=== PATIENT | male | born 1955 | race Caucasian/White ===

== ENCOUNTER 2018-07-07 23:50 | Emergency (ER) | payer SELFPAY ==
[~2018-07-07] VITALS: Ht 180.3 cm; Wt 133.8 kg
[~2018-07-07 23:50] MED LIST: ACLI400A2 IH; ALB0.5V IH; ALBU2.5V4 IH; ALBU2.5V4 INH; AMLO10TA7 PO; AMLO5TAB2 PO; AMOXICILLIN; ASPI-983 PO; ASPI325T32 PO; CEPH500C PO; FLUT1DIS2 IH; FLUT1DIS26 IH; GUAI600T PO; IPR14IN IH; LEVO500T69 PO; LORA10TA7 PO; METO100T12 PO; MMT17NA NSEACH; MONT10TA24 PO; NAPR-689 PO; OMEP20CA12 PO; OMEP20TA33 PO; ONDAN4ODT PO; RT-ALBUINH IH; SILD100T PO; TBR.3OP51 OP; TRAM50TA2 PO
[2018-07-08] MEDS ORDERED: methylPREDNISolone 125 MG (Solu-MEDROL) VIAL ONE (00:09)
[2018-07-08] MEDS ORDERED: methylPREDNISolone 125 MG (Solu-MEDROL) VIAL IV STA (00:10)
[2018-07-08] MEDS ORDERED: RT-ALBUTEROL/IPRATROPIUM 3 ML (DUONEB) VIAL INH ONE (00:15)
[2018-07-08] MEDS ORDERED: RT-epiNEPHrine (RACEMIC) 2.25% 0.5 ML VIAL INH ONE (00:15)
[2018-07-08] MEDS ORDERED: DEXAMETHASONE 4 MG/ML SDV (DECADRON) IH ONE (00:15)
[2018-07-08] MEDS ORDERED: RT-SODIUM CHL INHALATION 3 ML VIAL ONE (00:18)
[2018-07-08 00:20] LABS: BASOPHILS # (AUTO) 0.1 10^3/uL (0.0-0.1); BASOPHILS % (AUTO) 1 % (0-10); EOSINOPHILS # (AUTO) 0.5 10^3/uL (0.0-0.3); EOSINOPHILS % (AUTO) 4 % (0-10); HEMATOCRIT 45 % (40-54); HEMOGLOBIN 15.4 G/DL (13.3-17.7); LYMPHOCYTES # (AUTO) 3.9 X 10^3 (1.0-4.0); LYMPHOCYTES % (AUTO) 27 % (12-44); MEAN CORPUSCULAR HEMOGLOBIN 31 PG (25-34); MEAN CORPUSCULAR HGB CONC 34 G/DL (32-36); MEAN CORPUSCULAR VOLUME 92 FL (80-99); MEAN PLATELET VOLUME 11.4 FL (7.4-10.4); MONOCYTES # (AUTO) 1.1 X 10^3 (0.0-1.0); MONOCYTES % (AUTO) 8 % (0-12); NEUTROPHILS # (AUTO) 8.8 X 10^3 (1.8-7.8); NEUTROPHILS % (AUTO) 61 % (42-75); PLATELET COUNT 273 10^3/uL (130-400); RED CELL DISTRIBUTION WIDTH 14.5 % (10.0-14.5); WHITE BLOOD COUNT 14.4 10^3/uL (4.3-11.0)
[2018-07-08 00:36] LABS: ALANINE AMINOTRANSFERASE 23 U/L (0-55); ALBUMIN 4.6 GM/DL (3.2-4.5); ALKALINE PHOSPHATASE 84 U/L (40-136); BILIRUBIN,TOTAL 0.4 MG/DL (0.1-1.0); BUN/CREATININE RATIO 17; CARBON DIOXIDE 24 MMOL/L (21-32); CHLORIDE 105 MMOL/L (98-107); CREATININE SERUM 1.12 MG/DL (0.60-1.30); GFR ESTIMATED > 60; GLUCOSE 94 MG/DL (70-105); POTASSIUM 3.9 MMOL/L (3.6-5.0); SODIUM 143 MMOL/L (135-145); TOTAL PROTEIN 8.5 GM/DL (6.4-8.2)
[2018-07-08] MEDS ORDERED: METH4TAB PO (02:30)
--- NOTE | 2018-07-08 02:30 | ED Respiratory ---
General Chief Complaint: Exposure Stated Complaint: SOB Source: patient History of Present Illness Date Seen by Provider: Jul 08, 2018 Time Seen by Provider: 00:05 Initial Comments PT ARRIVES VIA POV FROM HOME PT STATES HE WAS CLEARING A CLOGGED DRAIN AND HAD USED LIQUID PLUMR, SULFURIC ACID AND THEN BLEACH--THEN BREATHED IN THE FUMES--WAS NOT AN ENCLOSED SPACE PT HAS COPD AND BECAME VERY SHORT OF BREATH. DOES NOT USE HOME O2, OTHER CPAP WITH SLEEPING. 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 PCP: [facility], CODY JACOBO Allergies and Home Medications Allergies Coded Allergies: No Known Drug Allergies (Unverified , 05/07/14) Home Medications Aclidinium Ada 400 Mcg Aer.pow.ba, 1 PUFF IH BID PRN for SHORTNESS OF BREATH , (Reported) Albuterol Sulfate 2.5 Mg/3 Ml Vial.neb, 2.5 MG IH QID PRN for SHORTNESS OF BREATH, (Reported) Albuterol Sulfate 18 Gm Hfa.aer.ad, 1-2 PUFF IH QID PRN for SHORTNESS OF BREATH, (Reported) Amlodipine Besylate 10 Mg Tablet, 10 MG PO DAILY, (Reported) Aspirin 81 Mg Tablet.dr, 81 MG PO HS, (Reported) Fluticasone/Salmeterol 1 Each Blst.w.dev, 1 PUFF IH BID, (Reported) Ipratropium Ada 12.9 Gm Aers, 2 PUFF IH QID PRN for SHORTNESS OF BREATH, ( Reported) Methylprednisolone 4 Mg Tab.ds.pk, 4 MG PO UD Prescribed by: WYATT LAURENT on 07/08/18 0230 Metoprolol Tartrate 100 Mg Tablet, 100 MG PO BID, (Reported) Montelukast Sodium 10 Mg Tablet, 10 MG PO HS, (Reported) Omeprazole Magnesium 20 Mg Tablet.dr, 20 MG PO DAILY Prescribed by: JUDD LUCAS on 02/13/16 1350 Patient Home Medication List Home Medication List Reviewed: Yes Review of Systems Review of Systems Constitutional: no symptoms reported EENTM: no symptoms reported Respiratory: see HPI, cough, short of breath Cardiovascular: no symptoms reported; No chest pain Gastrointestinal: no symptoms reported Musculoskeletal: no symptoms reported Psychiatric/Neurological: See HPI, Anxiety Hematologic/Lymphatic: No Symptoms Reported Immunological/Allergic: no symptoms reported Past Vktvknf-Igjniu-Uqgfqt Hx Patient Social History Alcohol Use: Occasionally Uses Recreational Drug Use: No Smoking Status: Former Smoker (2 PPD, QUIT 1995) Former Smoker, Quit: May 10, 1995 Recent Foreign Travel: No Contact w/Someone Who Travel: No Recent Hopitalizations: Yes Immunizations Up To Date Date of Pneumonia Vaccine: Feb 07, 2013 Seasonal Allergies Seasonal Allergies: No Past Medical History Surgeries: Yes (CARDIAC CATH 04/2014--NO INTERVENTION; TURBT; SINUS SURGERY) Bladder Surgery, Cardiac Respiratory: Yes Sleep Apnea, COPD Currently Using CPAP: Yes Cardiac: Yes (CARDIAC CATH 04/2014--NO INTERVENTION) Chronic Edema/Swelling, Hypertension Neurological: No Reproductive Disorders: No Genitourinary: Yes (BLADDER CANCER--S/P TURBT) Gastrointestinal: No Musculoskeletal: Yes Arthritis Endocrine: Yes (OBESITY) HEENT: Yes (CHRONIC SINUSITIS--S/P SURGERY) Cancer: Yes Bladder Did You Recieve Any Treatments: Yes What Type of Treatment Did You: Surgical Intervention Psychosocial: No Integumentary: No Blood Disorders: No Family Medical History Asthma G8 BROTHER No Family History of: AIDS Abdominal aortic aneurysm Kirby's disease Alcoholism Alzheimer's disease Aphasia Arthritis Cancer of mouth Cardiovascular disease Cataracts Colon cancer Completed stroke Congenital disease Congenital heart disease Coronary thrombosis Cystic fibrosis Deafness or hearing loss Dementia Diabetes mellitus Drug abuse Dysphasia Fibrocystic disease of breast Gastroenteritis Glaucoma Hypercholesterolemia Hypertension Infertility Kidney disease Myocardial infarction Neoplasm Not obtainable due to adoption Osteoporosis Parkinson's disease Prostate cancer Psychosocial problem Respiratory disorder Seizure disorder Severe allergy Thyroid disease Tuberculosis Visual disorder Physical Exam Vital Signs - First Documented 07/08/18 07/08/18 00:25 02:39 Pulse 93 Resp 19 O2 Flow Rate 2.00 Capillary Refill : Height: 5'11.00" Weight: 333lbs. 3.0oz. 151.673354ts; 46.5 BMI Method:Stated General Appearance: obese, other (VERY ANXIOUS, HYPERVENTILATING AND MODERATELY DYSPNEIC BUT ABLE TO YELL AND TALK IN FULL SENTENCES. BEHAVIOR NOTED ABOVE. ) Respiratory: No rales, No rhonchi; other (HYPERVENTILATING AND MODERATELY DYSPNEIC ON ARRIVAL. NO WHEEZING BUT DECREASED AERATION IN ALL LUNG GALICIA. 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 II-XII nml as tested, no motor/sensory deficits, alert, oriented x 3, other (BEHAVIOR ABOVE) Skin: normal color, warm/dry Progress/Results/Core Measures Suspected Sepsis SIRS Temperature: Pulse: Respiratory Rate: Laboratory Tests 07/08/18 00:10: White Blood Count 14.4H Blood Pressure / Mean: Laboratory Tests 07/08/18 00:10: Creatinine 1.12, Platelet Count 273, Total Bilirubin 0.4 Results/Orders Lab Results Laboratory Tests Test 07/08/18 00:10 Range/Units White Blood Count 14.4 H 4.3-11.0 10^3/uL Red Blood Count 4.91 4.35-5.85 10^6/uL Hemoglobin 15.4 13.3-17.7 G/DL Hematocrit 45 40-54 % Mean Corpuscular Volume 92 80-99 FL Mean Corpuscular Hemoglobin 31 25-34 PG Mean Corpuscular Hemoglobin Concent 34 32-36 G/DL Red Cell Distribution Width 14.5 10.0-14.5 % Platelet Count 273 130-400 10^3/uL Mean Platelet Volume 11.4 H 7.4-10.4 FL Neutrophils (%) (Auto) 61 42-75 % Lymphocytes (%) (Auto) 27 12-44 % Monocytes (%) (Auto) 8 0-12 % Eosinophils (%) (Auto) 4 0-10 % Basophils (%) (Auto) 1 0-10 % Neutrophils # (Auto) 8.8 H 1.8-7.8 X 10^3 Lymphocytes # (Auto) 3.9 1.0-4.0 X 10^3 Monocytes # (Auto) 1.1 H 0.0-1.0 X 10^3 Eosinophils # (Auto) 0.5 H 0.0-0.3 10^3/uL Basophils # (Auto) 0.1 0.0-0.1 10^3/uL Neutrophils % (Manual) 60 % Lymphocytes % (Manual) 29 % Monocytes % (Manual) 8 % Eosinophils % (Manual) 3 % Sodium Level 143 135-145 MMOL/L Potassium Level 3.9 3.6-5.0 MMOL/L Chloride Level 105 98-107 MMOL/L Carbon Dioxide Level 24 21-32 MMOL/L Anion Gap 14 5-14 MMOL/L Blood Urea Nitrogen 19 H 7-18 MG/DL Creatinine 1.12 0.60-1.30 MG/DL Estimat Glomerular Filtration Rate > 60 BUN/Creatinine Ratio 17 Glucose Level 94 70-105 MG/DL Calcium Level 10.0 8.5-10.1 MG/DL Corrected Calcium 8.5-10.1 MG/DL Total Bilirubin 0.4 0.1-1.0 MG/DL Aspartate Amino Transf (AST/SGOT) 22 5-34 U/L Alanine Aminotransferase (ALT/SGPT) 23 0-55 U/L Alkaline Phosphatase 84 40-136 U/L B-Type Natriuretic Peptide 28.6 <100.0 PG/ML Total Protein 8.5 H 6.4-8.2 GM/DL Albumin 4.6 H 3.2-4.5 GM/DL My Orders Orders - WYATT LAURENT DO Methylprednisolone Sod Succ (Solu-Medrol (07/08/18 00:09) Saline Lock/Iv-Start (07/08/18 00:10) O2 (07/08/18 00:10) Monitor-Rhythm Ecg Trace Only (07/08/18 00:10) BNP (07/08/18 00:10) Cbc With Automated Diff (07/08/18 00:10) Comprehensive Metabolic Panel (07/08/18 00:10) Chest 1 View, Ap/Pa Only (07/08/18 00:10) Albuterol/Ipra Inhalation Soln (Duoneb I (07/08/18 00:15) Rt Epinephrine (Racemic Epinephrine 2.25 (07/08/18 00:15) Dexamethasone Injection (Decadron Inject (07/08/18 00:15) Methylprednisolone Sod Succ (Solu-Medrol (07/08/18 00:10) Svn Small Volume Nebulizer (07/08/18 00:10) Svn Small Volume Nebulizer (07/08/18 00:10) Manual Differential (07/08/18 00:10) Sodium Chl Inhalation (Rt-Sodium Chl Inh (07/08/18 00:18) Medications Given in ED Current Medications Medications Dose Ordered Sig/José Route Start Time Stop Time Status Last Admin Dose Admin Albuterol/ Ipratropium 3 ml ONCE ONCE INH 07/08/18 00:15 07/08/18 00:16 DC 07/08/18 00:25 3 ML Dexamethasone Sodium Phosphate 30 mg ONCE ONCE IH 07/08/18 00:15 07/08/18 00:16 DC 07/08/18 00:25 30 MG Epinephrine 0.5 ml ONCE ONCE INH 07/08/18 00:15 07/08/18 00:16 DC 07/08/18 00:25 0.5 ML Vital Signs/I&O 07/08/18 07/08/18 07/08/18 07/08/18 00:04 00:04 00:04 00:25 Temp 98.0 B/P (MAP) 200/109 (139) Pulse Ox 92 92 97 O2 Delivery Room Air Nasal Cannula Room Air Nasal Cannula O2 Flow Rate 2.00 07/08/18 02:39 Temp 98.0 Pulse 93 Resp 19 B/P (MAP) 157/83 (107) Pulse Ox 97 O2 Delivery Room Air Capillary Refill : Progress Note : Progress Note PT CALMED SHORTLY AFTER ARRIVAL AND PT IS NO LONGER DYSPNEIC OR HYPERVENTILATING PT GIVEN SOLU-MEDROL AND NEB TREATMENTS WITH INCREASED AERATION. PT OBSERVED IN ER FOR OVER AN HOUR AFTER NEB TREATMENTS HAD BEEN COMPLETE PT WITH NO RETURN OF SYMPTOMS, RESPIRATIONS EVEN AND UNLABORED. O2 SATS 98% ON ROOM AIR PT FEELS COMFORTABLE GOING HOME Diagnostic Imaging Comments CXR--NO ACUTE PROCESS, PENDING RADIOLOGIST REVIEW Reviewed: Reviewed by Me Departure Impression Primary Impression: Exposure to chemical inhalation Additional Impressions: COPD exacerbation Anxiety Disposition: 01 HOME, SELF-CARE Condition: Improved Departure-Patient Inst. Referrals: LEXIE DUBOSE DO (PCP) Primary Care Physician LYNN JACOBO (Family) Primary Care Physician Patient Instructions: COPD Including Emphysema (DC) Add. Discharge Instructions: HOME, REST USE YOUR ALBUTEROL NEBULIZER EVERY 4 HOURS NEEDED, USE YOUR ADVAIR AND OTHER INHALERS PRESCRIBED FOLLOW UP WITH YOUR DR IN 1-2 DAYS IF NO BETTER, RETURN TO ER IF WORSE All discharge instructions reviewed with patient and/or family. Voiced understanding. Scripts Methylprednisolone (Medrol) 4 Mg Tab.ds.pk 4 MG PO UD, #1 PKG Prov: WYATT LAURENT DO 07/08/18 WYATT LAURENT DO Jul 08, 2018 02:30
[2018-07-08 02:39] VITALS: BP 157/83
[2018-07-08 03:32] LABS: EOSINOPHILS % (MANUAL) 3 %; LYMPHOCYTES % (MANUAL) 29 %; MONOCYTES % (MANUAL) 8 %; NEUTROPHILS % (MANUAL) 60 %
--- NOTE | 2018-07-08 07:34 | Diagnostic Imaging Report ---
INDICATION: Shortness of breath. Exposure to chemicals. COMPARISON: 02/13/2016. Portable AP chest. FINDINGS: Lungs are well-aerated. There are no infiltrates. Heart is not enlarged. No pulmonary edema. No pneumothorax or pleural effusion. No bony abnormalities. IMPRESSION: Normal portable chest. Dictated by: Dictated on workstation # [id number]
--- OUTSIDE RECORDS SUMMARY | 2018-07-10 05:40 | XMS REPORT ---
Author Author LYNN JACOBO Organization [facility] Address [address] [place] [address] Care Team Providers Care Recreation Attendant Supervisor Name Role Phone LYNN JACOBO Unavailable PROBLEMS Type Condition ICD9-CM Code BMU38-CL Code Onset Dates Condition Status SNOMED Code Problem Mood disorder F39 Active 35865862 Problem Chronic obstructive pulmonary disease, unspecified COPD type J44.9 Active 56297312 Problem Gastroesophageal reflux disease without esophagitis K21.9 Active 837641066 Problem Hypertension, benign I10 Active 17250743 Problem Other chronic gastritis without hemorrhage K29.50 Active 4384325 Problem COPD (chronic obstructive pulmonary disease) J44.9 Active 85950790 Problem Panlobular emphysema J43.1 Active 9658613 Problem Lumbago with sciatica, right side M54.41 Active 978130054 Problem Simple chronic bronchitis J41.0 Active 41647592 Problem History of elevated glucose Z86.39 Active [id number] ALLERGIES No Information ENCOUNTERS Encounter Location Date Diagnosis [place] [id number] [place] [address] 38835- 9244 Apr, [place] [id number] [place] [address] 48832- 1354 Apr, Congestion of nasal sinus R09.81 [facility] [id number] [place] [address] 12900- 2533 Apr, Other chronic gastritis without hemorrhage K29.50 [place] [id number] [place] [address] 68942- 4914 Mar, COPD (chronic obstructive pulmonary disease) J44.9 [place] [id number] [place] [address] 75105- 6023 07 Mar, 2018 Chronic obstructive pulmonary disease, unspecified COPD type J44.9 [place] [id number] [address]- 6374 Feb, [facility] [id number] [place] [address] 73826- 2692 Jan, COPD (chronic obstructive pulmonary disease) J44.9 [facility] [id number] [place] [address] 58870- 6732 Dec, Mood disorder F39 ; Hypertension, benign I10 and Panlobular emphysema J43.1 [facility] [id number] [place] [address] 59156- 9859 Dec, [facility] [id number] [place] [address] 92366- 3886 May, [facility] [id number] [place] [address] 41014- 8340 May, Chronic obstructive pulmonary disease, unspecified COPD type J44.9 [facility] [id number] [place] [address] 22817- 1530 May, Hypertension, benign I10 and Simple chronic bronchitis J41.0 [facility] [id number] [place] [address] 94910- 3095 Apr, [facility] [id number] [place] [address] 84841- 4193 Apr, Panlobular emphysema J43.1 [facility] [address] [address]- 2744 Mar, Chronic obstructive pulmonary disease, unspecified COPD type J44.9 [facility] [address] [address]- 0820 Feb, Chronic obstructive pulmonary disease, unspecified COPD type J44.9 [facility] [address] [address]- 2628 Dec, Chronic obstructive pulmonary disease, unspecified COPD type J44.9 [facility] [id number] [place] [address] 48371- 3069 Dec, [facility] [id number] [place] [address] 98718- 3186 Dec, Mood disorder F39 ; Hypertension, benign I10 and Gastroesophageal reflux disease without esophagitis K21.9 [facility] [address] [id number] Oct, Dental caries K02.9 [facility] [id number] [place] [address] [id number] September, Dental caries K02.9 [facility] [id number] [place] [address] 00124- 1462 September, History of elevated glucose Z86.39 and Eustachian tube dysfunction, bilateral H69.83 [facility] [id number] [place] [address] 31528- 2938 September, [facility] [id number] [place] [address] 40192- 2191 September, Dental examination Z01.20 [facility] [id number] [place] [address] 60381- 2243 Aug, [facility] [id number] [place] [address] 83655- 6528 Aug, [facility] [id number] [place] [address] 05431- 3143 Jun, [facility] [id number] [place] [address] 76272- 2253 Jun, Chronic obstructive pulmonary disease, unspecified COPD type J44.9 [facility] [id number] [place] [address] 88899- 2420 Jun, [facility] [id number] [place] [address] 09724- 0325 Apr, [facility] [id number] [place] [address] 36793- 2536 Mar, Chronic obstructive pulmonary disease, unspecified COPD type J44.9 and Lumbago with sciatica, right side M54.41 [facility] [id number] [place] [address] 58892- 3088 Feb, [facility] [id number] [place] [address] 12639- 9933 Feb, [facility] [id number] [place] [address] 51427- 4240 Feb, [facility] [id number] [place] [address] 60574- 1821 Feb, Gastroesophageal reflux disease without esophagitis K21.9 [facility] [id number] [place] [address] 20712- 0866 Feb, [facility] [id number] [place] [address] 82718- 4793 Feb, [facility] [id number] [place] [address] 80436- 9906 Feb, Mood disorder F39 [facility] [id number] [place] [address] 90657- 7263 Jan, [facility] [id number] [place] [address] 34418- 3593 Jan, Chronic obstructive pulmonary disease, unspecified COPD type J44.9 and Essential hypertension I10 [facility] [id number] [place] [address] 39173- 6643 Nov, [facility] [id number] [place] [address] 15196- 0626 September, Chronic obstructive pulmonary disease, unspecified COPD type J44.9 and Edema, unspecified type R60.9 [facility] [id number] [address]- 6805 September, [facility] [id number] [place] [address] 52444- 5719 September, [facility] [id number] [place] [address] 51764- 2097 September, Other chest pain R07.89 [facility] [address] 44970- 2229 Aug, Hypertension I10 [place] [address] 65880- 5751 Jul, Moderate persistent asthma without complication J45.40 [facility] [address] 00578- 8404 Jun, COPD (chronic obstructive pulmonary disease) J44.9 [place] [address] 91765- 9678 Jun, COPD (chronic obstructive pulmonary disease) J44.9 [place] [address] 97271- 3335 Jun, COPD (chronic obstructive pulmonary disease) J44.9 [place] [id number] [place] [address] 23198- 5072 May, [place] [address] 50102- 7341 Mar, Other chest pain R07.89 [place] [id number] [place] [address] 03654- 8922 Mar, [place] [id number] [place] [address] 40177- 3008 30 Feb, 2015 Hypertension, benign I10 ; Shortness of breath R06.02 and Edema of abdominal wall R60.0 [place] [address] 06826- 6543 Jan, [place] [id number] [place] [address] 26008- 5549 Dec, Sinusitis 473.9 and Chronic airway obstruction, not elsewhere classified [address] [place] [address] 18115- 3191 Dec, [facility] [address] [id number] [place] [address]- 3704 Dec, [facility] [address] [id number] [place] [address]- 2990 Nov, [facility] [address] [id number] [place] [id number] September, Dental examination V72.2 [facility] [address] [id number] [place] [address]- 4431 September, [facility] [address] [id number] [place] [address]- 8934 Aug, [facility] [place] [facility] [address] [id number] [place] [address]- 5627 Aug, [facility] [id number] [place] [address]- 6156 Jul, [facility] [address] [id number] [address]- 5576 Jun, [facility] [place] [facility] [address] [facility] [id number] [place] [address]- 1572 Jun, [facility] [place] [facility] [address] [facility] [id number] [place] [address]- 2048 Jun, [facility] [place] [facility] [address] [id number] [place] 2110 Jun, [facility] [place] [facility] [address] [facility] [id number] [place] [address]- 2517 Jun, [facility] [place] [facility] [address] [id number] [place] [address]- 0796 Jun, [facility] [place] [facility] [address] [facility] [id number] [place] 2306 Jun, [facility] [place] [facility] [address] [facility] [id number] [place] [address]- 8751 13 Jun, 2014 [facility] [place] [facility] [address] [id number] [place] [address]- 6207 Jun, [facility] [place] [facility] [address] [id number] [place] [address]- 8208 11 Jun, 2014 [facility] [place] [facility] [address] [id number] [place] [address]- 1536 Jun, [facility] [place] [facility] [address] [id number] [place] [address]- 0874 Jun, [facility] [place] [facility] [address] [id number] [place] [address]- 2533 May, [facility] [place] [facility] [address] [id number] [place] [address]- 0143 May, [facility] [place] [facility] [address] [id number] [place] [address]- 2837 May, [facility] [place] [facility] [address] [id number] [place] [address]- 2485 15 May, 2014 [facility] [place] [facility] [address] [id number] [place] [address]- 7186 14 May, 2014 [facility] [place] [facility] [address] [id number] [place] [address]- 5093 May, [facility] [place] [facility] [address] [id number] [place] [address]- 2522 Apr, [facility] [place] [facility] [address] [id number] [place] [address]- 6639 Apr, [facility] [place] [facility] [address] [id number] [place] [address]- 6761 Apr, [facility] [place] [facility] [address] [id number] [place] [address]- 3375 Mar, [facility] [place] [facility] [address] [id number] [place] [address]- 0786 Mar, [facility] [place] [facility] [address] [id number] [place] [address]- 2377 Mar, [facility] [place] [facility] [address] [id number] [place] [address]- 6381 Mar, [facility] [place] [facility] [address] [id number] [place] [address]- 0724 Mar, [facility] [place] [facility] [address] [id number] [place] [address]- 7038 Mar, [facility] [place] [facility] [address] [id number] [place] [address]- 8841 Mar, [facility] [place] [facility] [address] [id number] [place] [address]- 0806 Mar, [facility] [place] [facility] [address] [id number] [place] [address]- 1058 Mar, [facility] [place] [facility] [address] [id number] [place] [address]- 3352 Mar, [facility] [place] [facility] [address] [id number] [place] [address]- 5213 Feb, [facility] [place] [facility] [address] [id number] [place] [address]- 1955 Feb, [facility] [place] [facility] [address] [id number] [place] [address]- 3077 Feb, [facility] [place] [facility] [address] [id number] [place] [address]- 0200 Feb, [facility] [place] [facility] [address] [id number] [place] [address]- 0224 Jan, [facility] [place] [facility] [address] [id number] [place] [address]- 1383 03 Jan, 2013 [facility] [place] [facility] [address] [id number] [place] [address]- 8246 02 Jan, 2013 [facility] [place] [facility] [address] [id number] [place] [address]- 4678 Jan, [facility] [place] [facility] [address] [id number] [place] [address]- 8738 Dec, [facility] [place] [facility] [address] [id number] [place] [address]- 3479 Dec, [facility] [place] [facility] [address] [id number] [place] [address]- 0897 Dec, [facility] [place] [facility] [address] [id number] [place] [address]- 8090 Dec, [facility] [place] [facility] [address] [id number] [place] [address]- 3217 Dec, [facility] [place] [facility] [address] [id number] [place] [address]- 7342 Dec, [facility] [place] [facility] [address] [id number] [place] [address]- 4988 Nov, [facility] [place] [facility] [address] [id number] [place] [address]- 9436 Nov, [facility] [place] [facility] [address] [id number] [place] [address]- 1194 Nov, [facility] [place] [facility] [address] [id number] [place] [address]- 9615 Nov, [facility] [place] [facility] [address] [id number] [place] [address]- 8623 September, [facility] [place] [facility] [address] [id number] [place] [address]- 6192 September, [facility] [place] [facility] [address] [id number] [place] [address]- 6498 Jul, [facility] [place] [facility] [address] [id number] [place] 8460 Jul, [facility] [place] [facility] [address] [id number] [place] [address]- 8121 Jul, [facility] [place] [facility] [address] [id number] [place] [address]- 1249 Jul, [facility] [place] [facility] [address] [id number] [place] [address]- 6226 Jun, [facility] [place] [facility] [address] [id number] [place] 8236 Jun, [facility] [place] [facility] [address] [facility] [id number] [place] [address]- 1016 Jun, [facility] [place] [facility] [address] [id number] [place] [address]- 6312 Jun, [facility] [place] [facility] [address] [id number] [place] [address]- 3263 Jun, [facility] [place] [facility] [address] [facility] [id number] [place] [address]- 6492 Jun, [facility] [place] [facility] [id number] [place] [address]- 3902 Jun, [facility] [place] [facility] [address] [facility] [id number] [place] [address]- 7374 Jun, [facility] [place] [facility] [address] [id number] [place] [address]- 0198 Jun, [facility] [place] [facility] [address] [facility] [id number] [place] [address]- 0956 Jun, [facility] [place] [facility] [address] [facility] [id number] [place] [address]- 0099 May, [facility] [place] [facility] [address] [id number] [place] [address]- 3059 May, [facility] [place] [facility] [address] [facility] [id number] [place] [address]- 5709 Apr, [facility] [place] [facility] [address] [facility] [id number] [place] [address]- 8666 Apr, [facility] [place] [facility] [address] [facility] [id number] [place] 5910 Apr, [facility] [address] [id number] [place] [address]- 7432 Apr, [facility] [place] [facility] [address] [id number] [place] [address]- 1069 Apr, [facility] [place] [facility] [address] [id number] [place] [address]- 1794 Apr, [facility] [place] [facility] [address] [id number] [place] [address]- 0897 Mar, [facility] [place] [facility] [address] [id number] [place] [address]- 9086 Mar, [facility] [place] [facility] [address] [id number] [place] [address]- 3636 Feb, [facility] [place] [facility] [address] [id number] [place] [address]- 0245 Jan, [facility] [place] [facility] [address] [id number] [place] [address]- 1299 Jan, [facility] [place] [facility] [address] [id number] [place] [address]- 0838 Dec, [facility] [place] [facility] [address] [id number] [place] [address]- 1691 Dec, [facility] [place] [facility] [address] [id number] [place] [address]- 4082 Nov, [facility] [place] [facility] [address] [id number] [place] [address]- 9470 Nov, [facility] [place] [facility] [address] [id number] [place] [address]- 2035 Oct, [facility] [place] [facility] [address] [id number] [place] [address]- 5279 September, [facility] [place] [facility] [address] [id number] [place] [address]- 2546 September, [facility] [place] [facility] [address] [id number] [place] [address]- 0831 30 Aug, 2012 [facility] [address] [id number] [place] [address]- 3479 22 Aug, 2012 [facility] [place] [facility] [address] [id number] [place] [address]- 6883 17 Aug, 2012 [facility] [place] [facility] [address] [id number] [place] [address]- 5012 16 Aug, 2012 [facility] [place] [facility] [address] [id number] [place] [address]- 7838 12 Aug, 2012 [facility] [place] [facility] [address] [id number] [place] [address]- 7076 06 Jun, 2012 [facility] [place] [facility] [address] [id number] [place] [address]- 5659 Jun, [facility] [place] [facility] [address] [id number] [place] [address]- 4887 05 Jun, 2012 [facility] [place] [facility] [address] [id number] [place] [address]- 1389 May, [facility] [place] [facility] [address] [id number] [place] [address] 29 May, 2012 [facility] [place] [facility] [address] [id number] [place] [address] 07 Apr, 2012 [facility] [place] [facility] [address] [id number] [place] [address] Mar, [facility] [place] [facility] [address] [id number] [place] [address] 27 Mar, 2012 [facility] [place] [facility] [address] [id number] [place] [address] 13 Mar, 2012 [facility] [place] [facility] [address] [id number] [place] [address] 13 Mar, 2012 [facility] [place] [facility] [address] [id number] [place] [address] Mar, [facility] [address] [facility] [id number] [place] [address] Mar, [facility] [address] [facility] [id number] [place] [address] Mar, [facility] [id number] [place] [address] Mar, [facility] [id number] [place] [address] Feb, [facility] [address] [facility] [id number] [place] [address] Feb, [facility] [id number] [place] [address] Feb, [facility] [id number] [place] [address] Feb, [facility] [id number] [place] [address] Dec, [facility] [id number] [place] [address] Nov, [facility] [id number] [place] [address] Nov, [facility] [id number] [place] [address] Nov, [facility] [id number] [place] [address] Nov, [facility] [id number] [place] [address] Nov, [facility] [id number] [place] [address] Nov, IMMUNIZATIONS No Known Immunizations SOCIAL HISTORY Never Assessed REASON FOR VISIT Requests return call PLAN OF CARE VITAL SIGNS MEDICATIONS Medication Instructions Dosage Frequency Start Date End Date Duration Status PredniSONE 20 mg Orally Once a day 2 tablets 24h Apr, 5 days Active RESULTS No Results PROCEDURES No Known procedures INSTRUCTIONS MEDICATIONS ADMINISTERED No Known Medications MEDICAL (GENERAL) HISTORY Type Description Date Medical History COPD Medical History hypertension Surgical History sinus surgery 2013 Surgical History bladder cancer 2006 Surgical History angiogram 05/2014 Hospitalization History surgeries Hospitalization History hypertension 05/2014 Hospitalization History chest pain, hypertension 02/13/2016
--- OUTSIDE RECORDS SUMMARY | 2018-07-10 05:41 | XMS REPORT ---
Author Author LYNN JACOBO Organization [facility] Address [address] [place] [address] Care Team Providers Care Investigator Narcotics Name Role Phone LYNN JACOBO Unavailable PROBLEMS Type Condition ICD9-CM Code NCC85-XH Code Onset Dates Condition Status SNOMED Code Problem Hypertension, benign I10 Active 14598672 Problem Gastroesophageal reflux disease without esophagitis K21.9 Active 663497249 Problem Mood disorder F39 Active 07155862 Problem COPD (chronic obstructive pulmonary disease) J44.9 Active 48201828 Problem Simple chronic bronchitis J41.0 Active 28218054 Problem Lumbago with sciatica, right side M54.41 Active 211550836 Problem Chronic obstructive pulmonary disease, unspecified COPD type J44.9 Active 50951661 Problem History of elevated glucose Z86.39 Active Problem Panlobular emphysema J43.1 Active 1360013 ALLERGIES No Information ENCOUNTERS Encounter Location Date Diagnosis [place] [id number] [address] Apr, [facility] [address] [address]- [address] Mar, COPD (chronic obstructive pulmonary disease) J44.9 [facility] [address] [place] [id number] [place] [address] 56810- 5829 Mar, Chronic obstructive pulmonary disease, unspecified COPD type J44.9 [facility] [address] [place] [id number] [place] [address] 82173- 3047 Feb, [facility] [address] [address]- 5393 Jan, COPD (chronic obstructive pulmonary disease) J44.9 [facility] [address] 7[address]51- 5188 Dec, Mood disorder F39 ; Hypertension, benign I10 and Panlobular emphysema J43.1 [facility] [address] [place] [id number] [place] [address] 90764- 0389 Dec, [facility] [address] [place] [id number] [place] [address] 74668- 5869 May, [facility] [address] [place] [id number] [place] [address] 90915- 5630 May, Chronic obstructive pulmonary disease, unspecified COPD type J44.9 [facility] [address] [place] [id number] [place] [address] 11499- 5511 May, Hypertension, benign I10 and Simple chronic bronchitis J41.0 [facility] [address] [place] [id number] [place] [address] 88899- 8567 Apr, [facility] [address] [place] [id number] [place] [address] 57400- 7600 Apr, Panlobular emphysema J43.1 [facility] [address] [place] [id number] [place] [address] 32585- 2967 Mar, Chronic obstructive pulmonary disease, unspecified COPD type J44.9 [facility] [address] [place] [id number] [place] [address] 25173- 9008 Feb, Chronic obstructive pulmonary disease, unspecified COPD type J44.9 [facility] [address] [place] [id number] [place] [address] 90593- 1391 Dec, Chronic obstructive pulmonary disease, unspecified COPD type J44.9 [facility] [id number] [place] [address] 92265- 5934 Dec, [facility] [address] [place] [id number] [place] [address] 00797- 9899 Dec, Mood disorder F39 ; Hypertension, benign I10 and Gastroesophageal reflux disease without esophagitis K21.9 [facility] [id number] [place] [address] [id number] 08 Oct, 2016 Dental caries K02.9 [facility] [address] [id number] September, Dental caries K02.9 [facility] [address] [place] [id number] [place] [address] 53085- 2591 September, History of elevated glucose Z86.39 and Eustachian tube dysfunction, bilateral H69.83 [facility] [address] [place] [id number] [place] [address] 67981- 1407 September, [facility] [address] [place] [id number] [place] [address] 32022- 6236 September, Dental examination Z01.20 [facility] [address] [place] [id number] [place] [address] 31994- 4637 Aug, [facility] [address] [place] [id number] [place] [address] 89821- 4264 Aug, [facility] [address] [place] [id number] [place] [address] 56317- 2747 Jun, [facility] [address] [place] [id number] [place] [address] 37829- 8958 Jun, Chronic obstructive pulmonary disease, unspecified COPD type J44.9 [facility] [address] [place] [id number] [place] [address] 21016- 1124 Jun, [facility] [address] [place] [id number] [place] [address] 45704- 5987 Apr, [facility] [address] [place] [id number] [place] [address] 96461- 8268 Mar, Chronic obstructive pulmonary disease, unspecified COPD type J44.9 and Lumbago with sciatica, right side M54.41 [facility] [id number] [place] [address] 14289- 8321 Feb, [facility] [address] [place] [id number] [place] [address] 61204- 4348 Feb, [facility] [address] [address]- 8775 14 Feb, 2016 [facility] [address] [place] [id number] [place] [address] 33594- 9395 10 Feb, 2016 Gastroesophageal reflux disease without esophagitis K21.9 [facility] [id number] [place] [address] 51080- 4238 Feb, [facility] [address] [place] [id number] [place] [address] 44955- 4546 Feb, [facility] [address] [place] [id number] [place] [address] 93825- 2850 Feb, Mood disorder F39 [facility] [address] [place] [id number] [place] [address] 25717- 1534 Jan, [facility] [address] [place] [id number] [place] [address] 33003- 1509 Jan, Chronic obstructive pulmonary disease, unspecified COPD type J44.9 and Essential hypertension I10 [facility] [address] [place] [id number] [place] [address] 85869- 2287 Nov, [facility] [address] [place] [id number] [place] [address] 21442- 4567 September, Chronic obstructive pulmonary disease, unspecified COPD type J44.9 and Edema, unspecified type R60.9 [facility] [id number] [place] [address] 74206- 2933 September, [facility] [id number] [place] [address] 95463- 3361 September, [facility] [address] [place] [id number] [place] [address] 63859- 7348 September, Other chest pain R07.89 [facility] [address] [place] [id number] [place] [address] 08452- 7206 Aug, Hypertension I10 [facility] [address] [place] [id number] [place] [address] 96795- 7791 Jul, Moderate persistent asthma without complication J45.40 [facility] [address] [place] [id number] [place] [address] 03001- 8977 26 Jun, 2015 COPD (chronic obstructive pulmonary disease) J44.9 [facility] [address] [place] [id number] [place] [address] 17649- 4344 18 Jun, 2015 COPD (chronic obstructive pulmonary disease) J44.9 [facility] [address] 24832- 7144 Jun, COPD (chronic obstructive pulmonary disease) J44.9 [facility] [address] [place] [id number] [place] [address] 20331- 2438 May, [facility] [address] 67712- 9638 Mar, Other chest pain R07.89 [facility] [address] 56297- 3789 Mar, [facility] [address] [place] [id number] [place] [address] 17396- 7295 Feb, Hypertension, benign I10 ; Shortness of breath R06.02 and Edema of abdominal wall R60.0 [facility] [address] [place] [id number] [place] [address] 49843- 1741 Jan, [facility] [address] [place] [id number] [place] [address] 26486- 0693 Dec, Sinusitis 473.9 and Chronic airway obstruction, not elsewhere classified 496 [facility] [address] [place] [id number] [place] [address] 93681- 3064 Dec, [facility] [address] 85383- 8590 Dec, [facility] [address] [place] [id number] [place] [address] 49380- 8182 Nov, [facility] [address] [id number] September, Dental examination V72.2 [facility] [place] [facility] [address] [id number] [place] [address]- 2001 September, [facility] [place] [facility] [address] [facility] [id number] 8332 Aug, [facility] [place] [facility] [address] [facility] [id number], [place] [address]- 5113 Aug, [facility] [place] [facility] [address] [id number], [place] [address]- 7944 Jul, [facility] [place] [facility] [address] [id number]- 6563 Jun, [facility] [place] [facility] [address] [id number], [place] [address]- 8480 Jun, [facility] [place] [facility] [address] [facility] [id number], [place] [address]- 6648 Jun, [facility] [place] [facility] [address] [facility] [id number], [place] [address]- 0695 Jun, [facility] [place] [facility] [address] [facility] [id number], [place] [address]- 4101 Jun, [facility] [place] [facility] [address] [facility] [id number], [place] [address]- 1578 Jun, 2014 [facility] [place] [facility] [address] [facility] [id number], [place] [address]- 4766 Jun, 2014 [facility] [place] [facility] [address] [facility] [id number][place] [address]- 8443 Jun, 2014 [facility] [place] [facility] [address] [facility] [id number][place] 3431 Jun, [facility] [place] [facility] [address] [facility] [id number], [place] [address]- 0536 Jun, 2014 [facility] [place] [facility] [address] [facility] [id number] 7046 Jun, [facility] [place] [facility] [address] [id number] [place] [address]- 8844 Jun, [facility] [place] [facility] [address] [id number] [place] [address]- 7091 May, [facility] [place] [facility] [address] [id number] [place] [address]- 1406 May, [facility] [place] [facility] [address] [id number] [place] [address]- 4533 May, [facility] [place] [facility] [address] [id number] [place] [address]- 8624 May, [facility] [place] [facility] [address] [id number] [place] [address]- 6429 May, [facility] [place] [facility] [address] [id number] [place] [address]- 2587 May, [facility] [place] [facility] [address] [id number] [place] [address]- 6482 Apr, [facility] [place] [facility] [address] [id number] [place] [address]- 8180 Apr, [facility] [place] [facility] [address] [id number] [place] [address]- 2023 Apr, [facility] [place] [facility] [address] [id number], [place] [address]- 6523 Mar, [facility] [place] [facility] [address] [id number] [address]- 5074 Mar, [facility] [place] [facility] [address] [id number] [place] [address]- 9207 Mar, [facility] [place] [facility] [address] [id number], [place] [address]- 6563 Mar, [facility] [place] [facility] [address] [id number] [place] [address]- 5890 Mar, [facility] [place] [facility] [address] [id number] [place] [address]- 5530 Mar, [facility] [place] [facility] [address] [id number] [place] 8826 Mar, [facility] [place] [facility] [address] [id number] [place] [address]- 0193 Mar, [facility] [place] [facility] [address] [id number] [place] 3179 Mar, [facility] [place] [facility] [address] [id number] [place] [address]- 0835 Mar, [facility] [place] [facility] [address] [id number] [place] [address]- 2070 Feb, [facility] [place] [facility] [address] [id number] [place] [address]- 5669 Feb, [facility] [place] [facility] [address] [id number] [place] [address]- 2512 Feb, [facility] [place] [facility] [address] [id number] [place] [address]- 7119 Feb, [facility] [place] [facility] [address] [id number] [place] [address]- 4590 Jan, [facility] [place] [facility] [address] [id number] [place] [address]- 3208 Jan, [facility] [place] [facility] [address] [id number] [place] [address]- 2653 Jan, [facility] [place] [facility] [address] [id number] [place] [address]- 4882 Jan, [facility] [place] [facility] [address] [id number] [place] [address]- 3790 Dec, [facility] [place] [facility] [address] [id number] [place] [address]- 7429 Dec, [facility] [place] [facility] [address] [id number] [place] [address]- 8993 Dec, [facility] [place] [facility] [address] [id number] [place] [address]- 5784 Dec, [facility] [place] [facility] [address] [id number] [place] [address]- 0560 Dec, [facility] [place] [facility] [address] [id number] [place] [address]- 7404 Dec, [facility] [place] [facility] [address] [id number] [place] [address]- 3704 Nov, [facility] [place] [facility] [address] [id number] [place] [address]- 4932 Nov, [facility] [place] [facility] [address] [id number] [place] [address]- 1502 Nov, [facility] [place] [facility] [address] [id number] [place] [address]- 3159 Nov, [facility] [place] [facility] [address] [id number] [place] [address]- 2038 September, [facility] [place] [facility] [address] [id number] [place] [address]- 4273 September, [facility] [place] [facility] [address] [id number] [place] [address]- 3365 Jul, [facility] [place] [facility] [address] [id number] [place] [address]- 7465 Jul, [facility] [place] [facility] [address] [id number] [place] [address]- 7678 Jul, [facility] [place] [facility] [address] [id number] [place] [address]- 7774 Jul, [facility] [place] [facility] [address] [id number] [place] [address]- 9021 Jun, [facility] [place] [facility] [address] [id number] [place] [address]- 8348 Jun, [facility] [place] [facility] [address] [id number] [place] [address]- 0032 Jun, [facility] [place] [facility] [address] [id number] [place] [address]- 5676 Jun, [facility] [place] [facility] [address] [id number] [place] 3526 Jun, [facility] [place] [facility] [address] [id number] [place] [address]- 9706 Jun, [facility] [place] [facility] [address] [id number] [place] [address]- 6145 Jun, [facility] [place] [facility] [address] [id number] [place] [address]- 7782 Jun, [facility] [place] [facility] [address] [facility] [id number] [place] [address]- 4894 Jun, [facility] [place] [facility] [address] [place] [id number] [place] [address]- 3892 Jun, [facility] [place] [facility] [address] [facility] [id number] [place] [address]- 7759 May, [facility] [place] [facility] [address] [facility] [id number] [place] [address]- 3198 May, [facility] [place] [facility] [address] [facility] [id number] [place] [address]- 1436 Apr, [facility] [place] [facility] [address] [id number] [place] [address]- 4813 Apr, [facility] [place] [facility] [address] [id number] [place] 9704 Apr, [facility] [place] [facility] [address] [id number] [place] 6759 Apr, [facility] [place] [facility] [address] [facility] [id number] [place] [address]- 5227 Apr, [facility] [place] [facility] [address] [facility] [id number] [place] [address]- 8632 Apr, [facility] [address] [id number] [place] [address]- 5576 Mar, [facility] [place] [facility] [address] [id number] [place] [address]- 1946 Mar, [facility] [place] [facility] [address] [id number] [place] [address]- 2546 Feb, [facility] [place] [facility] [address] [id number] [place] [address]- 2546 Jan, [facility] [address] [id number] [place] [address]- 2546 Jan, [facility] [place] [facility] [address] [id number] [place] [address]- 3336 Dec, [facility] [place] [facility] [address] [id number] [place] [address]- 2546 Dec, [facility] [address] [id number] [place] [address]- 4226 Nov, [facility] [place] [facility] [address] [id number] [place] [address]- 2961 Nov, [facility] [place] [facility] [address] [id number], [place] [address]- 6026 Oct, [facility] [place] [facility] [address] [id number] [place] [address]- 2546 September, [facility] [place] [facility] [address] [id number], [place] [address]- 2546 September, [facility] [place] [facility] [address] [id number] [place] [address]- 1206 Aug, [facility] [place] [facility] [address] [id number] [place] [address]- 9916 Aug, [facility] [place] [facility] [address] [id number], [place] [address]- 8626 Aug, [facility] [place] [facility] [address] [id number], [place] [address]- 2020 16 Aug, 2012 [facility] [address] [id number] [place] [address]- 1718 Aug, [facility] [place] [facility] [address] [id number] [place] [address]- 3996 06 Jun, 2012 [facility] [address] [id number] [place] [address]- 4186 Jun, [facility] [place] [facility] [address] [id number] [place] [address]- 2873 Jun, [facility] [address] [id number] [place] [address]- 9264 May, [facility] [address] [id number] [place] [address]- 4575 May, [facility] [address] [id number] [place] [address]- 2768 07 Apr, 2012 [facility] [address] [id number] [place] [address]- 8045 27 Mar, 2012 [facility] [address] [id number] [place] [address]- 4545 27 Mar, 2012 [facility] [address] [facility] [id number] [place] [address]- 2979 13 Mar, 2012 [facility] [address] [id number] [place] [address]- 8886 13 Mar, 2012 [facility] [place] [facility] [address] [id number], [place] [address]- 2547 13 Mar, 2012 [facility] [place] [facility] [address] [id number] [place] [address]- 4182 13 Mar, 2012 [facility] [place] [facility] [address] [id number] [place] [address]- 9005 13 Mar, 2012 [facility] [place] [facility] [address] [facility] [id number], [place] [address]- 9150 13 Mar, 2012 [facility] [place] [facility] [address] [facility] [id number][place] 1350 Feb, [facility] [address] [facility] [id number] 3228 Feb, [facility] [address] [facility] [id number][place] 9553 Feb, [facility] [address] [facility] [id number], [place] [address] Feb, [facility] [address] [facility] [id number], [place] [address] Dec, [facility] [address] [facility] [id number] [address] Nov, [facility] [address] [id number] [address] Nov, [facility] [id number] [address] Nov, [facility] [id number], [place] [address] Nov, [facility] [id number] [address] Nov, [facility] [address] [id number], [place] [address] Nov, IMMUNIZATIONS No Known Immunizations SOCIAL HISTORY Never Assessed REASON FOR VISIT PALS Renewal Advair/Ventolin PLAN OF CARE VITAL SIGNS MEDICATIONS Medication Instructions Dosage Frequency Start Date End Date Duration Status Ventolin HFA 108 (90 Base) MCG/ACT Inhalation 4 times a day 2 puffs as needed 6h 90 days Active Advair Diskus 250-50 MCG/DOSE Inhalation Twice a day 1 puff 12h Jun, 90 days Active RESULTS No Results PROCEDURES No Known procedures INSTRUCTIONS MEDICATIONS ADMINISTERED No Known Medications MEDICAL (GENERAL) HISTORY Type Description Date Medical History COPD Medical History hypertension Surgical History sinus surgery 2013 Surgical History bladder cancer 2007 Surgical History angiogram 05/2014 Hospitalization History surgeries Hospitalization History hypertension 05/2014 Hospitalization History chest pain, hypertension 02/13/2016
--- OUTSIDE RECORDS SUMMARY | 2018-07-10 05:41 | XMS REPORT ---
Author Author LYNN JACOBO Organization [facility] Address [address] [place] [address] Care Team Providers Care Insurance Job Titles Name Role Phone LYNN JACOBO Unavailable PROBLEMS Type Condition ICD9-CM Code NRQ63-FT Code Onset Dates Condition Status SNOMED Code Problem Hypertension, benign I10 Active 70250315 Problem Gastroesophageal reflux disease without esophagitis K21.9 Active 693473570 Problem Mood disorder F39 Active 60734266 Problem COPD (chronic obstructive pulmonary disease) J44.9 Active 30460531 Problem Simple chronic bronchitis J41.0 Active 87575871 Problem Lumbago with sciatica, right side M54.41 Active 004627710 Problem Chronic obstructive pulmonary disease, unspecified COPD type J44.9 Active 70000152 Problem History of elevated glucose Z86.39 Active Problem Panlobular emphysema J43.1 Active 2317874 ALLERGIES No Information ENCOUNTERS Encounter Location Date Diagnosis [place] [id number] [address] Mar, Chronic obstructive pulmonary disease, unspecified COPD type J44.9 [facility] [address] [id number] [place] [address] 17389- 2019 Feb, [facility] [id number] [place] [address] 07407- 2727 Jan, COPD (chronic obstructive pulmonary disease) J44.9 [facility] [id number] [place] [address] 81228- 6750 15 Dec, 2017 Mood disorder F39 ; Hypertension, benign I10 and Panlobular emphysema J43.1 [facility] [id number] [place] [address] 57117- 7631 13 Dec, 2017 [facility] [address] 24371- 5302 May, [facility] [id number] [place] [address] 58901- 9029 May, Chronic obstructive pulmonary disease, unspecified COPD type J44.9 [facility] [id number] [place] [address] 14626- 1774 May, Hypertension, benign I10 and Simple chronic bronchitis J41.0 [facility] [address] [address]- 3[address] Apr, [facility] [address] [place] [id number] [place] [address] 69845- 2704 Apr, Panlobular emphysema J43.1 [place] [id number] [place] [address] 53690- 7555 Mar, Chronic obstructive pulmonary disease, unspecified COPD type J44.9 [facility] [address] [id number] [place] [address] 13741- 3476 Feb, Chronic obstructive pulmonary disease, unspecified COPD type J44.9 [facility] [address] [id number] [place] [address] 37484- 1391 Dec, Chronic obstructive pulmonary disease, unspecified COPD type J44.9 [facility] [address] [id number] [place] [address] 60786- 5827 Dec, [facility] [id number] [place] [address] 28862- 1962 Dec, Mood disorder F39 ; Hypertension, benign I10 and Gastroesophageal reflux disease without esophagitis K21.9 [facility] [address] [id number] Oct, Dental caries K02.9 [facility] [address] [place] [id number] [place] [address] [id number] September, Dental caries K02.9 [facility] [id number] [place] [address] 31074- 3256 September, History of elevated glucose Z86.39 and Eustachian tube dysfunction, bilateral H69.83 [facility] [id number] [place] [address] 97663- 9561 September, [facility] [id number] [place] [address] 75003- 2221 September, Dental examination Z01.20 [facility] [id number] [place] [address] 33436- 5360 Aug, [facility] [id number] [place] [address] 49362- 7430 Aug, [facility] [id number] [place] [address] 01811- 1652 Jun, [facility] [id number] [place] [address] 36497- 1516 Jun, Chronic obstructive pulmonary disease, unspecified COPD type J44.9 [facility] [id number] [place] [address] 72046- 3679 Jun, [facility] [id number] [place] [address] 69276- 7930 Apr, [facility] [id number] [place] [address] 35758- 7123 Mar, Chronic obstructive pulmonary disease, unspecified COPD type J44.9 and Lumbago with sciatica, right side M54.41 [facility] [id number] [place] [address] 71533- 5557 Feb, [facility] [id number] [place] [address] 27930- 2706 Feb, [facility] [id number] [place] [address] 67074- 5297 Feb, [facility] [address] [id number] [place] [address] 06815- 3221 10 Feb, 2016 Gastroesophageal reflux disease without esophagitis K21.9 [facility] [id number] [address]- 5528 Feb, [facility] [id number] [place] [address] 33665- 8017 Feb, [facility] [id number] [place] [address] 24564- 0161 Feb, Mood disorder F39 [facility] [address] [id number] [place] [address] 81781- 1715 Jan, [facility] [id number] [place] [address] 32474- 7250 Jan, Chronic obstructive pulmonary disease, unspecified COPD type J44.9 and Essential hypertension I10 [facility] [id number] [place] [address] 13410- 5978 Nov, [facility] [id number] [place] [address] 39294- 4023 September, Chronic obstructive pulmonary disease, unspecified COPD type J44.9 and Edema, unspecified type R60.9 [facility] [id number] [place] [address] 10229- 8229 September, [facility] [id number] [place] [address] 88760- 0310 September, [facility] [id number] [place] [address] 54781- 2422 September, Other chest pain R07.89 [facility] [id number] [place] [address] 05987- 5869 Aug, Hypertension I10 [facility] [id number] [place] [address] 11172- 6550 Jul, Moderate persistent asthma without complication J45.40 [facility] [id number] [place] [address] 82317- 9039 Jun, COPD (chronic obstructive pulmonary disease) J44.9 [facility] [address] [id number] [place] [address] 40449- 8805 18 Jun, 2015 COPD (chronic obstructive pulmonary disease) J44.9 [facility] [address] [address] [id number] [place] [address] 70851- 1732 Jun, COPD (chronic obstructive pulmonary disease) J44.9 [facility] [address] [id number] [place] [address] 36933- 4086 May, [facility] [address] 63296- 4531 Mar, Other chest pain R07.89 [facility] [address] 82628- 8419 Mar, [facility] [address] 34971- 4750 Feb, Hypertension, benign I10 ; Shortness of breath R06.02 and Edema of abdominal wall R60.0 [facility] [address] [place] [id number] [place] [address] 39779- 8191 Jan, [facility] [address] 29831- 9793 Dec, Sinusitis 473.9 and Chronic airway obstruction, not elsewhere classified 496 [facility] [address] [place] [id number] [place] [address] 12483- 8334 Dec, [facility] [address] [id number] [place] [address] 48967- 6774 Dec, [facility] [address] [id number] [place] [address] 94683- 0733 Nov, [facility] [address] [id number] [place] [address] [id number] September, Dental examination V72.2 [facility] [address] [id number] [place] [address] 04125- 9606 September, [facility] [address] [id number] [place] [address] 22751- 2294 Aug, [facility] [place] [facility] [address] [id number] [place] [address]- 3266 Aug, [facility] [place] [facility] [address] [id number] [place] [address]- 6864 Jul, [facility] [place] [facility] [address] [id number] [place] [address]- 8776 Jun, 2014 [facility] [place] [facility] [address] [id number] [place] [address]- 6591 Jun, 2014 [facility] [place] [facility] [address] [id number] [place] [address]- 4229 Jun, 2014 [facility] [place] [facility] [address] [id number] [place] [address]- 8782 Jun, 2014 [facility] [place] [facility] [address] [id number] [place] [address]- 4672 Jun, 2014 [facility] [place] [facility] [address] [id number] [place] [address]- 7702 Jun, 2014 [facility] [place] [facility] [address] [id number] [place] [address]- 0075 Jun, 2014 [facility] [place] [facility] [address] [facility] [place] [id number] [place] [address]- 8007 Jun, 2014 [facility] [place] [facility] [address] [facility] [place] [id number] [place] [address]- 3402 Jun, 2014 [facility] [place] [facility] [address] [facility] [place] [id number] [place] [address]- 4952 Jun, 2014 [facility] [place] [facility] [address] [id number] [place] [address]- 8043 Jun, 2014 [facility] [place] [facility] [address] [facility] [place] [id number] [place] [address]- 2823 Jun, 2014 [facility] [place] [facility] [address] [facility] [place] [id number] [place] [address]- 2195 May, [facility] [place] [facility] [address] [id number] [place] [address]- 7059 May, [facility] [place] [facility] [address] [id number] [place] [address]- 5560 May, [facility] [place] [facility] [address] [id number] [place] [address]- 8560 May, [facility] [place] [facility] [address] [id number] [place] [address]- 4955 May, [facility] [place] [facility] [address] [id number] [place] [address]- 3077 May, [facility] [place] [facility] [address] [id number] [place] [address]- 1949 Apr, [facility] [place] [facility] [address] [id number] [place] [address]- 9527 Apr, [facility] [place] [facility] [address] [id number] [place] [address]- 2938 Apr, [facility] [place] [facility] [address] [id number] [place] [address]- 9645 Mar, [facility] [place] [facility] [address] [id number] [place] [address]- 9559 Mar, [facility] [place] [facility] [address] [id number] [place] [address]- 9965 Mar, [facility] [place] [facility] [address] [id number] [place] [address]- 4166 Mar, [facility] [place] [facility] [address] [id number] [place] [address]- 1651 Mar, [facility] [place] [facility] [address] [id number] [place] [address]- 0732 Mar, [facility] [place] [facility] [address] [id number] [place] [address]- 0908 Mar, [facility] [place] [facility] [address] [id number] [place] [address]- 2023 Mar, [facility] [place] [facility] [address] [id number] [place] [address]- 5003 Mar, [facility] [place] [facility] [address] [id number] [place] [address]- 8786 Mar, [facility] [place] [facility] [address] [id number] [place] [address]- 5206 Feb, [facility] [place] [facility] [address] [id number] [place] [address]- 4484 Feb, [facility] [place] [facility] [address] [id number] [place] [address]- 4721 Feb, [facility] [place] [facility] [address] [id number] [place] [address]- 0784 Feb, [facility] [place] [facility] [address] [id number] [place] [address]- 3986 Jan, [facility] [place] [facility] [address] [id number] [place] [address]- 9455 Jan, [facility] [place] [facility] [address] [id number] [place] [address]- 6349 Jan, [facility] [place] [facility] [address] [id number] [place] [address]- 2344 Jan, [facility] [place] [facility] [address] [id number] [place] [address]- 3559 Dec, [facility] [place] [facility] [address] [id number] [address]- 7112 Dec, [facility] [place] [facility] [address] [id number] [place] [address]- 5845 Dec, [facility] [place] [facility] [address] [id number] [place] [address]- 6157 Dec, [facility] [place] [facility] [address] [id number] [place] [address]- 6612 Dec, [facility] [place] [facility] [address] [id number] [place] [address]- 0336 Dec, [facility] [place] [facility] [address] [id number] [place] [address]- 9509 Nov, [facility] [place] [facility] [address] [id number] [place] [address]- 7352 Nov, [facility] [place] [facility] [address] [id number] [place] [address]- 1288 Nov, [facility] [place] [facility] [address] [id number] [place] [address]- 3758 Nov, [facility] [place] [facility] [address] [id number] [place] 1185 September, [facility] [place] [facility] [address] [id number] [place] [address]- 2603 September, [facility] [place] [facility] [address] [id number] [place] [address]- 6831 Jul, [facility] [place] [facility] [address] [id number] [place] [address]- 0222 Jul, [facility] [place] [facility] [address] [id number] [place] [address]- 5115 Jul, [facility] [place] [facility] [address] [id number] [place] [address]- 9539 Jul, [facility] [place] [facility] [address] [id number] [place] [address]- 9634 Jun, [facility] [place] [facility] [address] [id number] [place] [address]- 9067 Jun, [facility] [place] [facility] [address] [id number] [place] [address]- 3852 Jun, [facility] [place] [facility] [address] [id number] [place] 0586 Jun, [facility] [place] [facility] [address] [id number] [place] [address]- 2733 Jun, [facility] [place] [facility] [address] [id number] [place] [address]- 3067 Jun, [facility] [place] [facility] [address] [id number] [place] [address]- 5414 Jun, [facility] [place] [facility] [address] [id number] [place] [address]- 4882 Jun, [facility] [place] [facility] [address] [id number] [place] [address]- 9642 Jun, [facility] [place] [facility] [address] [id number] [place] [address]- 0829 Jun, [facility] [place] [facility] [address] [id number] [place] [address]- 2033 May, [facility] [place] [facility] [address] [id number] [place] [address]- 5609 May, [facility] [place] [facility] [address] [id number] [place] [address]- 0675 Apr, [facility] [place] [facility] [address] [id number] [place] [address]- 6597 Apr, [facility] [place] [facility] [address] [id number] [place] [address]- 4840 Apr, [facility] [place] [facility] [address] [id number] [place] [address]- 4462 Apr, [facility] [place] [facility] [address] [id number] [place] [address]- 2344 Apr, [facility] [place] [facility] [address] [id number] [place] 2360 Apr, [facility] [place] [facility] [address] [id number] [place] [address]- 3685 Mar, [facility] [place] [facility] [address] [id number] [place] [address]- 9535 Mar, [facility] [place] [facility] [address] [id number] [place] [address]- 254 Feb, [facility] [address] [id number] [place] [address]- 6824 Jan, [facility] [address] [id number] [place] [address]- 2546 Jan, [facility] [address] [id number] [place] [address]- 0480 Dec, [facility] [address] [id number] [place] [address]- 9205 Dec, [facility] [address] [id number] [place] [address]- 1987 Nov, [facility] [address] [id number] [place] [address]- 1963 Nov, [facility] [address] [id number] [place] [address]- 1509 Oct, [facility] [address] [id number] [place] [address]- 0890 September, [facility] [address] [id number] [place] [address]- 1730 September, [facility] [address] [id number] [place] [address]- 6142 Aug, [facility] [address] [id number] [place] [address]- 9395 Aug, [facility] [address] [id number] [place] [address]- 8626 Aug, [facility] [address] [id number] [place] [address]- 6295 16 Aug, 2012 [facility] [address] [id number] [place] [address]- 2546 Aug, [facility] [address] [id number] [place]- 4999 Jun, [facility] [place] [facility] [address] [id number] [place] [address]- 0881 Jun, [facility] [place] [facility] [address] [id number] [place] [address]- 0107 Jun, [facility] [place] [facility] [address] [id number] [place] [address]- 3244 May, [facility] [place] [facility] [address] [id number] [place] [address]- 6373 May, [facility] [place] [facility] [address] [id number] [place] [address]- 4711 Apr, [facility] [place] [facility] [address] [id number] [place] [address]- 7051 Mar, [facility] [place] [facility] [address] [id number] [place] [address]- 7343 Mar, [facility] [place] [facility] [address] [id number] [address]- 9494 Mar, [facility] [place] [facility] [address] [id number] [address]- 2387 Mar, [facility] [place] [facility] [address] [facility] [place] [id number] [address]- 8935 Mar, [facility] [place] [facility] [address] [id number] [address]- 1576 Mar, [facility] [place] [facility] [address] [id number] [address]- 5216 Mar, [facility] [place] [facility] [address] [id number] [address]- 1125 Mar, [facility] [place] [facility] [address] [id number] [address]- 8849 Feb, [facility] [place] [facility] [address] [id number] [address]- 3467 Feb, [facility] [place] [facility] [address] [id number] [address]- 2546 Feb, [facility] [id number] [address]- 2546 Feb, [facility] [address] [id number] [address]- 2546 Dec, [facility] [id number] [address]- 0546 Nov, [facility] [id number] [address] Nov, [facility] [id number] [address] Nov, [facility] [id number] [address] Nov, [facility] [id number] [address] Nov, [facility] [id number] [address] Nov, IMMUNIZATIONS No Known Immunizations SOCIAL HISTORY Never Assessed REASON FOR VISIT PALS PLAN OF CARE VITAL SIGNS MEDICATIONS Medication Instructions Dosage Frequency Start Date End Date Duration Status Karine Babcockair 400 mcg/act Inhalation Twice a day 1 puff 12h 13 Jun, 2014 90 days Active RESULTS No Results PROCEDURES No Known procedures INSTRUCTIONS MEDICATIONS ADMINISTERED No Known Medications MEDICAL (GENERAL) HISTORY Type Description Date Medical History COPD Medical History hypertension Surgical History sinus surgery 2013 Surgical History bladder cancer 2007 Surgical History angiogram 05/2014 Hospitalization History surgeries Hospitalization History hypertension 05/2014 Hospitalization History chest pain, hypertension 02/13/2016
--- OUTSIDE RECORDS SUMMARY | 2018-07-10 05:41 | XMS REPORT ---
Author Author LYNN JACOBO Organization [facility] Address [address] [place] [address] Care Team Providers Care Care Management Associate Name Role Phone LYNN JACOBO Unavailable PROBLEMS Type Condition ICD9-CM Code HDR95-UA Code Onset Dates Condition Status SNOMED Code Problem Hypertension, benign I10 Active 33117530 Problem Gastroesophageal reflux disease without esophagitis K21.9 Active 925281051 Problem Mood disorder F39 Active 66234650 Problem COPD (chronic obstructive pulmonary disease) J44.9 Active 76952040 Problem Simple chronic bronchitis J41.0 Active 86738702 Problem Lumbago with sciatica, right side M54.41 Active 952820326 Problem Chronic obstructive pulmonary disease, unspecified COPD type J44.9 Active 60486257 Problem History of elevated glucose Z86.39 Active Problem Panlobular emphysema J43.1 Active 4873833 ALLERGIES Substance Reaction Event Type Date Status Hydrochlorothiazide nausea Drug Allergy Jan, Active ENCOUNTERS Encounter Location Date Diagnosis [place] [id number] [place] [address] 76867- 1494 Jan, COPD (chronic obstructive pulmonary disease) J44.9 [facility] [id number] [place] [address] 64337- 7593 Dec, Mood disorder F39 ; Hypertension, benign I10 and Panlobular emphysema J43.1 [facility] [id number] [place] [address] 05937- 6059 Dec, [facility] [id number] [place] [address] 94065- 4116 May, [facility] [place] [id number] [place] [address] 88330- 3847 May, Chronic obstructive pulmonary disease, unspecified COPD type J44.9 [facility] [place] [id number] [place] [address] 06926- 5527 May, Hypertension, benign I10 and Simple chronic bronchitis J41.0 [facility] [place] [id number] [place] [address] 39412- 5303 Apr, [facility] [place] [id number] [place] [address] 64446- 0643 Apr, Panlobular emphysema J43.1 [facility] [place] [id number] [place] [address] 05262- 7473 Mar, Chronic obstructive pulmonary disease, unspecified COPD type J44.9 [facility] [place] [address] 48664- 6070 Feb, Chronic obstructive pulmonary disease, unspecified COPD type J44.9 [place] [id number] [place] [address] 39142- 1799 Dec, Chronic obstructive pulmonary disease, unspecified COPD type J44.9 [facility] [place] [id number] [place] [address] 48113- 9179 Dec, [facility] [place] [id number] [place] [address] 35752- 1348 Dec, Mood disorder F39 ; Hypertension, benign I10 and Gastroesophageal reflux disease without esophagitis K21.9 [facility] [address] [id number] Oct, Dental caries K02.9 [facility] [id number] [place] [address] [id number] September, Dental caries K02.9 [facility] [place] [id number] [place] [address] 26776- 0791 September, History of elevated glucose Z86.39 and Eustachian tube dysfunction, bilateral H69.83 [facility] [place] [id number] [place] [address] 66456- 5241 September, [facility] [address] [place] [address]- 6458 September, Dental examination Z01.20 [facility] [place] [id number] [place] [address] 28461- 6751 Aug, [facility] [place] [id number] [place] [address] 53854- 9460 Aug, [facility] [id number] [place] [address] 12720- 5453 Jun, [facility] [place] [id number] [place] [address] 94084- 3471 Jun, Chronic obstructive pulmonary disease, unspecified COPD type J44.9 [facility] [place] [id number] [place] [address] 29898- 6971 Jun, [facility] [id number] [place] [address] 00966- 5195 Apr, [facility] [id number] [place] [address] 96746- 5760 Mar, Chronic obstructive pulmonary disease, unspecified COPD type J44.9 and Lumbago with sciatica, right side M54.41 [facility] [place] [id number] [place] [address] 83361- 3094 Feb, [facility] [place] [id number] [place] [address] 64684- 6548 Feb, [facility] [place] [id number] [place] [address] 80871- 7835 Feb, [facility] [id number] [place] [address] 87292- 9217 Feb, Gastroesophageal reflux disease without esophagitis K21.9 [facility] [place] [id number] [place] [address] 73543- 2979 Feb, [facility] [id number] [place] [address] 07419- 4746 Feb, [facility] [id number] [place] [address] 57587- 8403 Feb, Mood disorder F39 [facility] [id number] [place] [address] 71023- 5129 Jan, [facility] [id number] [place] [address] 98577- 5400 Jan, Chronic obstructive pulmonary disease, unspecified COPD type J44.9 and Essential hypertension I10 [facility] [id number] [place] [address] 59681- 8793 Nov, [facility] [id number] [place] [address] 65598- 0176 September, Chronic obstructive pulmonary disease, unspecified COPD type J44.9 and Edema, unspecified type R60.9 [facility] [place] [id number] [place] [address] 98842- 0932 September, [facility] [id number] [place] [address] 27815- 0181 September, [facility] [place] [id number] [place] [address] 51330- 6623 September, Other chest pain R07.89 [facility] [place] [id number] [place] [address] 98689- 1020 Aug, Hypertension I10 [place] [id number] [place] [address] 59966- 2159 Jul, Moderate persistent asthma without complication J45.40 [facility] [place] [id number] [place] [address] 48301- 8178 Jun, COPD (chronic obstructive pulmonary disease) J44.9 [facility] [place] [id number] [place] [address] 48505- 4771 18 Jun, 2015 COPD (chronic obstructive pulmonary disease) J44.9 [facility] [id number] [place] [address] 37747- 9619 17 Jun, 2015 COPD (chronic obstructive pulmonary disease) J44.9 [facility] [id number] [place] [address] 63154- 5975 May, [facility] [id number] [place] [address] 00065- 3495 Mar, Other chest pain R07.89 [facility] [place] [address] 56586- 1971 Mar, [facility] [address] 87793- 4733 Feb, Hypertension, benign I10 ; Shortness of breath R06.02 and Edema of abdominal wall R60.0 [facility] [place] [address] 54836- 6924 Jan, [facility] [place] [address] 51693- 1714 Dec, Sinusitis 473.9 and Chronic airway obstruction, not elsewhere classified 496 [facility] [id number] [place] [address] 92293- 1962 Dec, [facility] [address] 61778- 0671 Dec, [facility] [id number] [place] [address] 48481- 3663 Nov, [facility] [address] [id number] September, Dental examination V72.2 [facility] [place] [id number] [place] [address] 16793- 7122 September, [facility] [address] 39416- 5961 Aug, [facility] [id number] [place] [address] 87055- 8153 Aug, [facility] [address] 74134- 3284 Jul, [facility] [place] [facility] [address] [id number] [place] [address]- 5849 Jun, 2014 [facility] [place] [facility] [address] [facility] [id number] [place] 7896 Jun, 2014 [facility] [place] [facility] [address] [facility] [id number] [place] [address]- 4506 Jun, 2014 [facility] [place] [facility] [address] [facility] [id number] [place] [address]- 5859 Jun, 2014 [facility] [place] [facility] [address] [facility] [id number] [place] [address]- 4651 Jun, 2014 [facility] [place] [facility] [address] [facility] [id number] [place] [address]- 4976 Jun, 2014 [facility] [place] [facility] [address] [facility] [id number] [place] [address]- 4210 Jun, 2014 [facility] [place] [facility] [address] [facility] [id number] [place] [address]- 5386 Jun, 2014 [facility] [place] [facility] [address] [facility] [id number] [place] [address]- 5580 Jun, 2014 [facility] [place] [facility] [address] [facility] [id number] [place] [address]- 5977 Jun, 2014 [facility] [place] [facility] [address] [facility] [id number] [place] [address]- 4046 Jun, 2014 [facility] [place] [facility] [address] [facility] [id number] [address]- 7888 Jun, 2014 [facility] [place] [facility] [address] [facility] [id number] [address]- 2528 May, [facility] [place] [facility] [address] [facility] [id number] [address]- 2320 May, [facility] [place] [facility] [address] [facility] [id number] [address]- 8167 May, [facility] [place] [facility] [address] [id number] [place] [address]- 3501 May, [facility] [place] [facility] [address] [id number] [place] [address]- 5203 May, [facility] [place] [facility] [address] [id number] [place] [address]- 3215 May, [facility] [place] [facility] [address] [id number] [place] [address]- 9207 Apr, [facility] [place] [facility] [address] [id number] [place] [address]- 6846 Apr, [facility] [place] [facility] [address] [id number] [place] [address]- 2752 Apr, [facility] [place] [facility] [address] [id number] [place] [address]- 7120 Mar, [facility] [place] [facility] [address] [id number] [place] [address]- 1629 Mar, [facility] [place] [facility] [address] [id number] [place] [address]- 3437 Mar, [facility] [place] [facility] [address] [id number] [place] [address]- 1555 Mar, [facility] [place] [facility] [address] [id number] [place] [address]- 4896 Mar, [facility] [place] [facility] [address] [id number] [place] [address]- 1794 Mar, [facility] [place] [facility] [address] [id number] [place] [address]- 5307 Mar, [facility] [place] [facility] [address] [id number] [place] [address]- 6405 Mar, [facility] [place] [facility] [address] [id number] [place] [address]- 8289 Mar, [facility] [place] [facility] [address] [id number] [place] [address]- 7064 Mar, [facility] [place] [facility] [address] [id number] [place] [address]- 5141 Feb, [facility] [place] [facility] [address] [id number] [place] [address]- 8123 Feb, [facility] [place] [facility] [address] [id number] [place] [address]- 2341 Feb, [facility] [place] [facility] [address] [id number] [place] [address]- 8753 Feb, [facility] [place] [facility] [address] [id number] [place] [address]- 4653 Jan, [facility] [place] [facility] [address] [id number] [place] [address]- 0595 Jan, [facility] [place] [facility] [address] [id number] [place] [address]- 2277 Jan, [facility] [place] [facility] [address] [id number] [place] [address]- 1438 Jan, [facility] [place] [facility] [address] [id number] [place] [address]- 7605 Dec, [facility] [place] [facility] [address] [id number] [place] [address]- 7226 Dec, [facility] [place] [facility] [address] [id number] [place] [address]- 7976 Dec, [facility] [place] [facility] [address] [id number] [place] [address]- 1873 Dec, [facility] [place] [facility] [address] [id number] [place] [address]- 6482 Dec, [facility] [place] [facility] [address] [id number] [place] [address]- 5331 Dec, [facility] [place] [facility] [address] [id number] [place] [address]- 9402 Nov, [facility] [place] [facility] [address] [id number] [place] [address]- 6577 Nov, [facility] [place] [facility] [address] [id number] [place] [address]- 6163 Nov, [facility] [place] [facility] [address] [id number] [place] [address]- 2462 Nov, [facility] [place] [facility] [address] [id number] [place] [address]- 3161 September, [facility] [place] [facility] [address] [id number] [place] [address]- 9747 September, [facility] [place] [facility] [address] [id number] [place] [address]- 2350 Jul, [facility] [place] [facility] [address] [id number] [place] [address]- 2915 Jul, [facility] [place] [facility] [address] [id number] [place] [address]- 9704 Jul, [facility] [place] [facility] [address] [id number] [place] [address]- 4148 Jul, [facility] [place] [facility] [address] [id number] [place] [address]- 7697 Jun, [facility] [place] [facility] [address] [id number] [place] [address]- 0337 Jun, [facility] [place] [facility] [address] [id number] [place] [address]- 3731 Jun, [facility] [place] [facility] [address] [id number] [place] [address]- 2642 Jun, [facility] [place] [facility] [address] [id number] [place] [address]- 6366 Jun, [facility] [place] [facility] [address] [id number] [place] 2681 Jun, [facility] [place] [facility] [address] [id number] [place] [address]- 3684 Jun, [facility] [address] [id number] [place] [address]- 2448 Jun, [facility] [place] [facility] [address] [id number] [place] [address]- 6500 Jun, [facility] [place] [facility] [address] [id number] [place] [address]- 8488 Jun, [facility] [place] [facility] [address] [id number] [place] [address]- 8484 May, [facility] [place] [facility] [address] [id number] [place] [address]- 3459 May, [facility] [place] [facility] [address] [id number] [place] 4629 Apr, [facility] [address] [id number] [place] [address]- 2268 Apr, [facility] [place] [facility] [address] [id number] [place] [address]- 7838 Apr, [facility] [address] [id number] [place] [address]- 2220 Apr, [facility] [place] [facility] [address] [facility] [id number] [place] [address]- 1450 Apr, [facility] [place] [facility] [address] [id number], [place] [address]- 1375 Apr, [facility] [place] [facility] [address] [id number], [place] [address]- 6937 Mar, [facility] [place] [facility] [address] [id number], [place] [address]- 5595 Mar, [facility] [place] [facility] [address] [id number], [place] [address]- 5761 Feb, [facility] [place] [facility] [address] [id number] [place] [address]- 1894 Jan, [facility] [place] [facility] [address] [id number] [place] [address]- 2546 Jan, [facility] [address] [id number] [place] [address]- 2233 Dec, [facility] [place] [facility] [address] [id number] [place] [address]- 2546 Dec, [facility] [address] [id number] [place] [address]- 1775 Nov, [facility] [address] [id number] [place] [address]- 5765 Nov, [facility] [address] [id number] [place] [address]- 1268 Oct, [facility] [address] [id number] [place] [address]- 6645 September, [facility] [address] [id number] [place] [address]- 7416 September, [facility] [address] [id number] [place] [address]- 5325 Aug, [facility] [address] [id number] [place] [address]- 6127 Aug, [facility] [address] [id number] [place] [address]- 2562 Aug, [facility] [place] [facility] [address] [id number] [place] [address]- 2276 Aug, [facility] [place] [facility] [address] [id number] [place] [address]- 0175 Aug, [facility] [place] [facility] [address] [id number] [place] [address]- 2546 Jun, [facility] [place] [facility] [address] [id number] [place] [address]- 2546 Jun, [facility] [place] [facility] [address] [id number] [place] [address] Jun, [facility] [place] [facility] [address] [id number] [place] [address] May, [facility] [place] [facility] [address] [id number] [place] [address] May, [facility] [place] [facility] [address] [facility] [id number] [place] [address] Apr, [facility] [place] [facility] [address] [id number], [place] [address] Mar, [facility] [place] [facility] [address] [id number] [place] [address] Mar, [facility] [place] [facility] [address] [id number] [place] [address] Mar, [facility] [place] [facility] [address] [id number] [place] [address] Mar, [facility] [place] [facility] [address] [id number], [place] [address] Mar, [facility] [place] [facility] [address] [id number], [place] [address] Mar, [facility] [place] [facility] [address] [facility] [id number], [place] [address] Mar, [facility] [place] [facility] [address] [id number], [place] [address] Mar, [facility] [place] [facility] [address] [id number], [place] [address] Feb, [facility] [place] [facility] [address] [id number], [place] [address] Feb, [facility] [place] [facility] [address] [facility] [id number], [place] [address] Feb, [facility] [place] [facility] [address] [facility] [id number] [address] [address] Feb, [facility] [place] [facility] [address] [facility] [id number] [place] [address] Dec, [facility] [place] [address] [id number], [place] [address] Nov, [facility] [place] [id number], [place] [address] Nov, [facility] [place] [address] [id number], [place] [address] Nov, [facility] [place] [address] [id number], [place] [address] Nov, [facility] [place] [address] [id number], [place] [address] Nov, [facility] [place] [address] [id number], [place] [address] Nov, IMMUNIZATIONS No Known Immunizations SOCIAL HISTORY Never Assessed REASON FOR VISIT PALS PLAN OF CARE VITAL SIGNS MEDICATIONS Medication Instructions Dosage Frequency Start Date End Date Duration Status Atrovent HFA 17 mcg/actuation Inhalation Four times a day 2 puffs 6h 13 Jun 90 days Active RESULTS No Results PROCEDURES No Known procedures INSTRUCTIONS MEDICATIONS ADMINISTERED No Known Medications MEDICAL (GENERAL) HISTORY Type Description Date Medical History COPD Medical History hypertension Surgical History sinus surgery 2013 Surgical History bladder cancer 2007 Surgical History angiogram 05/2014 Hospitalization History surgeries Hospitalization History hypertension 05/2014 Hospitalization History chest pain, hypertension 02/13/2016
--- OUTSIDE RECORDS SUMMARY | 2018-07-10 05:42 | XMS REPORT ---
Author Author LYNN JACOBO Organization [facility] Address [address] [place] [address] Care Team Providers Care Country Manager Name Role Phone LYNN JACOBO Unavailable PROBLEMS Type Condition ICD9-CM Code IMB99-SL Code Onset Dates Condition Status SNOMED Code Problem Hypertension, benign I10 Active 45773220 Problem Gastroesophageal reflux disease without esophagitis K21.9 Active 750560756 Problem Mood disorder F39 Active 03535633 Problem COPD (chronic obstructive pulmonary disease) J44.9 Active 83035681 Problem Simple chronic bronchitis J41.0 Active 93159021 Problem Lumbago with sciatica, right side M54.41 Active 230538930 Problem Chronic obstructive pulmonary disease, unspecified COPD type J44.9 Active 67206738 Problem History of elevated glucose Z86.39 Active Problem Panlobular emphysema J43.1 Active 6686857 ALLERGIES Substance Reaction Event Type Date Status Hydrochlorothiazide nausea Drug Allergy Dec, Active ENCOUNTERS Encounter Location Date Diagnosis [facility] [id number] [place] [address] 23023- 5054 Jan, COPD (chronic obstructive pulmonary disease) J44.9 [facility] [id number] [place] [address] 17789- 9716 Dec, Mood disorder F39 ; Hypertension, benign I10 and Panlobular emphysema J43.1 [facility] [id number] [place] [address] 90036- 5251 Dec, [facility] [id number] [place] [address] 02285- 4348 May, [facility] [id number] [place] [address] 94089- 0876 May, Chronic obstructive pulmonary disease, unspecified COPD type J44.9 [facility] [id number] [place] [address] 43563- 3852 May, Hypertension, benign I10 and Simple chronic bronchitis J41.0 [facility] [id number] [place] [address] 69176- 6378 Apr, [facility] [id number] [place] [address] 60650- 8767 Apr, Panlobular emphysema J43.1 [facility] [id number] [place] [address] 84748- 1486 Mar, Chronic obstructive pulmonary disease, unspecified COPD type J44.9 [facility] [address] 58493- 7755 Feb, Chronic obstructive pulmonary disease, unspecified COPD type J44.9 [facility] [id number] [place] [address] 20329- 1478 Dec, Chronic obstructive pulmonary disease, unspecified COPD type J44.9 [facility] [id number] [place] [address] 04485- 3418 Dec, [facility] [id number] [place] [address] 59889- 2347 Dec, Mood disorder F39 ; Hypertension, benign I10 and Gastroesophageal reflux disease without esophagitis K21.9 [facility] [address] [id number] Oct, Dental caries K02.9 [facility] [id number] [place] [address] [id number] September, Dental caries K02.9 [facility] [id number] [place] [address] 88862- 3243 September, History of elevated glucose Z86.39 and Eustachian tube dysfunction, bilateral H69.83 [facility] [id number] [place] [address] 27596- 4744 September, [facility] [address] [place] [address]- 4282 September, Dental examination Z01.20 [facility] [id number] [place] [address] 13734- 2642 Aug, [facility] [id number] [place] [address] 79341- 7298 Aug, [facility] [id number] [place] [address] 35785- 3030 Jun, [facility] [id number] [place] [address] 64046- 7855 Jun, Chronic obstructive pulmonary disease, unspecified COPD type J44.9 [facility] [id number] [place] [address] 97006- 8812 Jun, [facility] [id number] [place] [address] 59436- 9484 Apr, [facility] [id number] [place] [address] 38256- 8676 Mar, Chronic obstructive pulmonary disease, unspecified COPD type J44.9 and Lumbago with sciatica, right side M54.41 [facility] [id number] [place] [address] 71266- 6032 Feb, [facility] [id number] [place] [address] 24357- 1379 Feb, [facility] [id number] [place] [address] 22568- 0304 Feb, [facility] [id number] [place] [address] 15851- 5593 Feb, Gastroesophageal reflux disease without esophagitis K21.9 [facility] [id number] [place] [address] 79554- 6135 Feb, [facility] [id number] [place] [address] 35628- 0053 Feb, [facility] [id number] [place] [address] 96314- 3197 Feb, Mood disorder F39 [facility] [id number] [place] [address] 49540- 6394 Jan, [facility] [id number] [place] [address] 08345- 2367 Jan, Chronic obstructive pulmonary disease, unspecified COPD type J44.9 and Essential hypertension I10 [facility] [id number] [place] [address] 43739- 3253 Nov, [facility] [id number] [place] [address] 67608- 9721 September, Chronic obstructive pulmonary disease, unspecified COPD type J44.9 and Edema, unspecified type R60.9 [facility] [id number] [place] [address] 06899- 6732 September, [facility] [id number] [place] [address] 11301- 0787 September, [facility] [id number] [place] [address] 97660- 8686 September, Other chest pain R07.89 [facility] [id number] [place] [address] 05007- 9896 Aug, Hypertension I10 [facility] [id number] [place] [address] 12576- 0946 Jul, Moderate persistent asthma without complication J45.40 [facility] [id number] [place] [address] 31217- 3018 Jun, COPD (chronic obstructive pulmonary disease) J44.9 [facility] [id number] [place] [address] 49438- 9564 18 Jun, 2015 COPD (chronic obstructive pulmonary disease) J44.9 [facility] [id number] [place] [address] 97704- 6255 17 Jun, 2015 COPD (chronic obstructive pulmonary disease) J44.9 [facility] [id number] [place] [address] 80857- 1104 May, [facility] [id number] [place] [address] 10486- 7794 Mar, Other chest pain R07.89 [facility] [address] 89798- 4897 Mar, [facility] [address] 50803- 8501 Feb, Hypertension, benign I10 ; Shortness of breath R06.02 and Edema of abdominal wall R60.0 [facility] [address] 59298- 8651 Jan, [facility] [address] 37742- 6758 Dec, Sinusitis 473.9 and Chronic airway obstruction, not elsewhere classified 496 [facility] [id number] [place] [address] 10435- 5026 Dec, [facility] [address] 69341- 6169 Dec, [facility] [id number] [place] [address] 33958- 1289 Nov, [facility] [address] [id number] September, Dental examination V72.2 [facility] [id number] [place] [address] 87578- 5425 September, [facility] [address] 02183- 7827 Aug, [facility] [id number] [place] [address] 15939- 6161 Aug, [facility] [address] 78234- 8847 Jul, [facility] [place] [facility] [address] [id number] [place] [address]- 5585 Jun, 2014 [facility] [place] [facility] [address] [facility] [id number] [place] 9906 Jun, 2014 [facility] [place] [facility] [address] [facility] [id number] [place] [address]- 8326 Jun, 2014 [facility] [place] [facility] [address] [facility] [id number] [place] [address]- 5279 Jun, 2014 [facility] [place] [facility] [address] [facility] [id number] [place] [address]- 8133 Jun, 2014 [facility] [place] [facility] [address] [facility] [id number] [place] [address]- 0053 Jun, 2014 [facility] [place] [facility] [address] [facility] [id number] [place] [address]- 9754 Jun, 2014 [facility] [place] [facility] [address] [facility] [id number] [place] [address]- 0049 Jun, 2014 [facility] [place] [facility] [address] [facility] [id number] [place] [address]- 3209 Jun, 2014 [facility] [place] [facility] [address] [facility] [id number] [place] [address]- 3333 Jun, 2014 [facility] [place] [facility] [address] [facility] [id number] [place] [address]- 9176 Jun, 2014 [facility] [place] [facility] [address] [facility] [id number] [address]- 6549 Jun, 2014 [facility] [place] [facility] [address] [facility] [id number], [place] [address]- 7138 May, [facility] [place] [facility] [address] [facility] [id number], [place] [address]- 8923 May, [facility] [place] [facility] [address] [facility] [id number], [place] [address]- 2214 May, [facility] [place] [facility] [address] [id number] [place] [address]- 9339 May, [facility] [place] [facility] [address] [id number] [place] [address]- 9965 May, [facility] [place] [facility] [address] [id number] [place] [address]- 1088 May, [facility] [place] [facility] [address] [id number] [place] [address]- 2552 Apr, [facility] [place] [facility] [address] [id number] [place] [address]- 3231 Apr, [facility] [place] [facility] [address] [id number] [place] [address]- 2965 Apr, [facility] [place] [facility] [address] [id number] [place] [address]- 3706 Mar, [facility] [place] [facility] [address] [id number] [place] [address]- 8659 Mar, [facility] [place] [facility] [address] [id number] [place] [address]- 5391 Mar, [facility] [place] [facility] [address] [id number] [place] [address]- 2252 Mar, [facility] [place] [facility] [address] [id number] [place] [address]- 9661 Mar, [facility] [place] [facility] [address] [id number] [place] [address]- 4839 Mar, [facility] [place] [facility] [address] [id number] [place] [address]- 3062 Mar, [facility] [place] [facility] [address] [id number] [place] [address]- 8970 Mar, [facility] [place] [facility] [address] [id number] [place] [address]- 6555 Mar, [facility] [place] [facility] [address] [id number] [place] [address]- 4297 Mar, [facility] [place] [facility] [address] [id number] [place] [address]- 1310 Feb, [facility] [place] [facility] [address] [id number] [place] [address]- 7551 Feb, [facility] [place] [facility] [address] [id number] [place] [address]- 2860 Feb, [facility] [place] [facility] [address] [id number] [place] [address]- 7131 Feb, [facility] [place] [facility] [address] [id number] [place] [address]- 9565 Jan, [facility] [place] [facility] [address] [id number] [place] [address]- 9596 Jan, [facility] [place] [facility] [address] [id number] [place] [address]- 5574 Jan, [facility] [place] [facility] [address] [id number] [place] [address]- 9384 Jan, [facility] [place] [facility] [address] [id number] [place] [address]- 2690 Dec, [facility] [place] [facility] [address] [id number] [place] [address]- 7891 Dec, [facility] [place] [facility] [address] [id number] [place] [address]- 6251 Dec, [facility] [place] [facility] [address] [id number] [place] [address]- 1714 Dec, [facility] [place] [facility] [address] [id number] [place] [address]- 1509 Dec, [facility] [place] [facility] [address] [id number] [place] [address]- 9943 Dec, [facility] [place] [facility] [address] [id number] [place] [address]- 9507 Nov, [facility] [place] [facility] [address] [id number] [place] [address]- 2306 Nov, [facility] [place] [facility] [address] [id number] [place] [address]- 6309 Nov, [facility] [place] [facility] [address] [id number] [place] [address]- 2719 Nov, [facility] [place] [facility] [address] [id number] [place] [address]- 7204 September, [facility] [place] [facility] [address] [id number] [place] [address]- 8919 September, [facility] [place] [facility] [address] [id number] [place] [address]- 7830 Jul, [facility] [place] [facility] [address] [id number] [place] [address]- 3721 Jul, [facility] [place] [facility] [address] [id number] [place] [address]- 3523 Jul, [facility] [place] [facility] [address] [id number] [place] [address]- 0322 Jul, [facility] [place] [facility] [address] [id number] [place] [address]- 6152 Jun, [facility] [place] [facility] [address] [id number] [place] [address]- 8292 Jun, [facility] [place] [facility] [address] [id number] [place] [address]- 5901 Jun, [facility] [place] [facility] [address] [id number] [place] [address]- 9013 Jun, [facility] [place] [facility] [address] [id number] [place] [address]- 6291 Jun, [facility] [place] [facility] [address] [id number] [place] 7227 Jun, [facility] [place] [facility] [address] [id number] [place] [address]- 9280 Jun, [facility] [address] [id number] [place] [address]- 3198 Jun, [facility] [place] [facility] [address] [id number] [place] [address]- 3453 Jun, [facility] [place] [facility] [address] [id number] [place] [address]- 2296 Jun, [facility] [place] [facility] [address] [id number] [place] [address]- 7141 May, [facility] [place] [facility] [address] [id number] [place] [address]- 4272 May, [facility] [place] [facility] [address] [id number] [place] 0121 Apr, [facility] [address] [id number] [place] [address]- 0128 Apr, [facility] [place] [facility] [address] [id number] [place] [address]- 3362 Apr, [facility] [address] [id number] [place] [address]- 2718 Apr, [facility] [place] [facility] [address] [facility] [id number] [place] [address]- 0795 Apr, [facility] [place] [facility] [address] [id number], [place] [address]- 2991 Apr, [facility] [place] [facility] [address] [id number], [place] [address]- 2769 Mar, [facility] [place] [facility] [address] [id number], [place] [address]- 4670 Mar, [facility] [place] [facility] [address] [id number], [place] [address]- 9008 Feb, [facility] [place] [facility] [address] [id number] [place] [address]- 0421 Jan, [facility] [place] [facility] [address] [id number] [place] [address]- 2546 Jan, [facility] [address] [id number] [place] [address]- 0489 Dec, [facility] [place] [facility] [address] [id number] [place] [address]- 2546 Dec, [facility] [address] [id number] [place] [address]- 3756 Nov, [facility] [address] [id number] [place] [address]- 5526 Nov, [facility] [address] [id number] [place] [address]- 5951 Oct, [facility] [address] [id number] [place] [address]- 4482 September, [facility] [address] [id number] [place] [address]- 4696 September, [facility] [address] [id number] [place] [address]- 7298 Aug, [facility] [address] [id number] [place] [address]- 7988 Aug, [facility] [address] [id number] [place] [address]- 6945 Aug, [facility] [place] [facility] [address] [id number] [place] [address]- 9369 Aug, [facility] [place] [facility] [address] [id number] [place] [address]- 1059 Aug, [facility] [place] [facility] [address] [id number] [place] [address]- 2546 Jun, [facility] [place] [facility] [address] [id number] [place] [address]- 2546 Jun, [facility] [place] [facility] [address] [id number] [place] [address]- 2899 Jun, [facility] [place] [facility] [address] [id number] [place] [address]- 2392 May, [facility] [place] [facility] [address] [id number] [place] [address]- 8166 May, [facility] [place] [facility] [address] [facility] [id number] [place] 8484 Apr, [facility] [place] [facility] [address] [id number], [place] [address]- 8334 Mar, [facility] [place] [facility] [address] [id number] [place] [address]- 7858 Mar, [facility] [place] [facility] [address] [id number] [place] [address]- 2252 Mar, [facility] [place] [facility] [address] [id number] [place] [address]- 1851 Mar, [facility] [place] [facility] [address] [id number], [place] [address]- 3831 Mar, [facility] [place] [facility] [address] [id number], [place] [address]- 0111 Mar, [facility] [place] [facility] [address] [facility] [id number], [place] [address]- 1879 Mar, [facility] [place] [facility] [address] [id number], [place] [address]- 7602 Mar, [facility] [place] [facility] [address] [id number], [place] [address]- 9063 Feb, [facility] [place] [facility] [address] [id number], [place] [address]- 9223 Feb, [facility] [place] [facility] [address] [facility] [id number], [place] [address]- 5810 Feb, [facility] [place] [facility] [address] [facility] [id number] 9246 Feb, [facility] [place] [facility] [address] [facility] [id number], [place] [address]- 5238 Dec, [facility] [address] [facility] [id number], [place] [address]- 6612 Nov, [facility] [address] [address]- 5211 Nov, [facility] [address] [id number] [address]- 3287 Nov, [facility] [address] [id number], [place] [address]- 5771 Nov, [facility] [address] [address]- 4189 Nov, [facility] [address] [id number], [place] [address]- 7610 Nov, IMMUNIZATIONS No Known Immunizations SOCIAL HISTORY Never Assessed REASON FOR VISIT COPD Pt in for f/u [place] [place] PLAN OF CARE VITAL SIGNS Height 75 in 2017-12-22 Weight 294.5 lbs 2017-12-22 Temperature 98.1 degrees Fahrenheit 2017-12-22 Heart Rate 92 bpm 2017-12-22 Respiratory Rate 22 2017-12-22 BMI 36.81 kg/m2 2017-12-22 Blood pressure systolic 156 mmHg 2017-12-22 Blood pressure diastolic 100 mmHg 2017-12-22 MEDICATIONS Medication Instructions Dosage Frequency Start Date End Date Duration Status Acidophilus 100 mg Orally Once a day 1 tablet 24h Dec, Active Benzonatate 100 mg Orally Three times a day 1 capsule as needed 8h Apr, Active Singulair 10 MG Orally Once a day 1 tablet in the evening 24h 30 Active Atrovent HFA 17 mcg/actuation Inhalation Four times a day 2 puffs 6h Jun 90 days Active Ventolin HFA 108 (90 Base) MCG/ACT Inhalation 4 times a day 2 puffs as needed 6h 90 days Active Protonix 40 MG TAKE ONE TABLET BY MOUTH ONCE DAILY 30 Active Benzonatate 100 mg Orally Three times a day 1 capsule as needed 8h Aug, Not-Taking Spiriva HandiHaler 18 MCG Inhalation Once a day 1 capsule 24h 10 May, 2017 Active Clonidine HCl 0.1 MG Orally Twice a day 1 tablet 12h 10 May, 2017 Active Advair Diskus 250-50 MCG/DOSE Inhalation Twice a day 1 puff 12h 11 Jun, 2014 90 days Active C-PAP Supplies & Tubing as directed Aug, Active Aspirin EC 81 MG Orally Once a day 1 tablet 24h Active Tudorza Pressair 400 mcg/act Inhalation Twice a day 1 puff 12h 13 Jun, 2014 30 days Active Flonase 50 MCG/ACT Nasally Once a day 1 spray in each nostril 24h 17 Dec, 2014 Active Amlodipine Besylate 10 MG TAKE ONE TABLET BY MOUTH ONCE DAILY 90 Active Tramadol HCl 50 mg Orally every 6 hrs 1 tablet as needed 6h Aug, Active Nitroglycerin 0.4 MG Sublingual 3 times a day, prn cp as directed Feb Active RESULTS No Results PROCEDURES No Known procedures INSTRUCTIONS MEDICATIONS ADMINISTERED No Known Medications MEDICAL (GENERAL) HISTORY Type Description Date Medical History COPD Medical History hypertension Surgical History sinus surgery 2013 Surgical History bladder cancer 2006 Surgical History angiogram 05/2014 Hospitalization History surgeries Hospitalization History hypertension 05/2014 Hospitalization History chest pain, hypertension 02/13/2016
--- OUTSIDE RECORDS SUMMARY | 2018-07-10 05:42 | XMS REPORT ---
Author Author LYNN JACOBO Organization [employer] Address Unknown Phone Unavailable Care Team Providers [facility] [employer] Name Role Phone LYNN JACOBO CP Unavailable Allergies No Known Allergies Problems Problem Type Condition ICD-9 Code Onset Dates Condition Status Problem Chronic airway obstruction, not elsewhere classified 496 Active Problem Pain in soft tissues of limb 729.5 Active Problem Need for prophylactic vaccination and inoculation, Influenza V04.81 Active Problem Other abnormal glucose 790.29 Active Problem Acute upper respiratory infections of unspecified site 465.9 Active Problem Allergic rhinitis, cause unspecified 477.9 Active Problem Unspecified hypertrophic and atrophic condition of skin 701.9 Active Problem Pneumonia, organism unspecified 486 Active Problem Obesity, unspecified 278.00 Active Problem Acute bronchitis 466.0 Active Problem Cough 786.2 Active Medications Medication Code System Code Instructions Start Date End Date Status Dosage Tudorza Pressair [facility] [address]-14 400 mcg/actuation Inhalation Twice a day Jun 22, 2014 1 puff Results No Known Results Summary Purpose [employer] Submission
--- OUTSIDE RECORDS SUMMARY | 2018-07-10 05:42 | XMS REPORT ---
Author Author LYNN JACOBO Organization [facility] Address [address] [place] [address] Care Team Providers Care Director Of Application Development Name Role Phone LYNN JACOBO Unavailable PROBLEMS Type Condition ICD9-CM Code HTF15-SB Code Onset Dates Condition Status SNOMED Code Problem Hypertension, benign I10 Active 75041427 Problem Gastroesophageal reflux disease without esophagitis K21.9 Active 537599497 Problem Mood disorder F39 Active 58019850 Problem COPD (chronic obstructive pulmonary disease) J44.9 Active 17002972 Problem Simple chronic bronchitis J41.0 Active 80030911 Problem Lumbago with sciatica, right side M54.41 Active 313090726 Problem Chronic obstructive pulmonary disease, unspecified COPD type J44.9 Active 34586734 Problem History of elevated glucose Z86.39 Active Problem Panlobular emphysema J43.1 Active 0822483 ALLERGIES No Information ENCOUNTERS Encounter Location Date Diagnosis [facility] [id number] [place] [address] 92708- 8768 12 Jan, 2018 COPD (chronic obstructive pulmonary disease) J44.9 [facility] [id number] [place] [address] 58349- 7701 15 Dec, 2017 Mood disorder F39 ; Hypertension, benign I10 and Panlobular emphysema J43.1 [facility] [id number] [place] [address] 11737- 9915 Dec, [facility] [id number] [place] [address] 33686- 1499 May, [facility] [id number] [place] [address] 04607- 5960 10 May, 2017 Chronic obstructive pulmonary disease, unspecified COPD type J44.9 [facility] [id number] [place] [address] 69525- 5827 May, Hypertension, benign I10 and Simple chronic bronchitis J41.0 [facility] [id number] [place] [address] 75079- 3064 Apr, [facility] [id number] [place] [address] [id number]- 5417 Apr, Panlobular emphysema J43.1 [facility] [address] 00984- 3141 Mar, Chronic obstructive pulmonary disease, unspecified COPD type J44.9 [facility] [id number] [place] [address] 04070- 2137 Feb, Chronic obstructive pulmonary disease, unspecified COPD type J44.9 [facility] [id number] [place] [address] 55620- 6243 Dec, Chronic obstructive pulmonary disease, unspecified COPD type J44.9 [facility] [id number] [place] [address] 37825- 4427 Dec, [facility] [id number] [place] [address] 12994- 3395 Dec, Mood disorder F39 ; Hypertension, benign I10 and Gastroesophageal reflux disease without esophagitis K21.[address] [facility] [id number] [place] [address] [id number] Oct, Dental caries K02.[address] [facility] [id number] [place] [address] [id number] September, Dental caries K02.9 [facility] [id number] [place] [address] 05051- 8288 September, History of elevated glucose Z86.39 and Eustachian tube dysfunction, bilateral H69.83 [facility] [id number] [place] [address] 96751- 3967 September, [facility] [id number] [place] [address] 71346- 3595 September, Dental examination Z01.20 [facility] [id number] [place] [address] 98854- 8482 Aug, [facility] [id number] [place] [address] 90581- 1648 Aug, [facility] [id number] [place] [address] 84546- 6704 Jun, [facility] [id number] [place] [address] 46435- 3349 Jun, Chronic obstructive pulmonary disease, unspecified COPD type J44.9 [facility] [id number] [place] [address] 11902- 5247 Jun, [facility] [id number] [place] [address] 77377- 5665 Apr, [facility] [id number] [place] [address] 12176- 1795 Mar, Chronic obstructive pulmonary disease, unspecified COPD type J44.9 and Lumbago with sciatica, right side M54.41 [facility] [id number] [place] [address] 41986- 5736 Feb, [facility] [id number] [place] [address] 79831- 9045 Feb, [facility] [id number] [place] [address] 54570- 9465 Feb, [facility] [id number] [place] [address] 86197- 1105 Feb, Gastroesophageal reflux disease without esophagitis K21.9 [facility] [id number] [place] [address] 84363- 5120 Feb, [facility] [id number] [place] [address] 07636- 2764 Feb, [facility] [id number] [place] [address] 94614- 3675 Feb, Mood disorder F39 [facility] [id number] [place] [address] 74446- 5654 Jan, [facility] [id number] [place] [address] 73130- 3061 Jan, Chronic obstructive pulmonary disease, unspecified COPD type J44.9 and Essential hypertension I10 [facility] [address] 41156- 2636 Nov, [facility] [id number] [place] [address] 88675- 2423 September, Chronic obstructive pulmonary disease, unspecified COPD type J44.9 and Edema, unspecified type R60.9 [place] [facility] [id number] [place] [address] 43251- 2025 September, [place] [facility] [address] 94260- 6606 September, [facility] [id number] [place] [address] 86941- 7933 September, Other chest pain R07.89 [place] [facility] [id number] [place] [address] 98369- 7744 Aug, Hypertension I10 [place] [id number] [place] [address] 96807- 5346 Jul, Moderate persistent asthma without complication J45.40 [facility] [id number] [place] [address] 39247- 7481 26 Jun, 2015 COPD (chronic obstructive pulmonary disease) J44.9 [facility] [address] 60017- 4701 18 Jun, 2015 COPD (chronic obstructive pulmonary disease) J44.9 [place] [facility] [id number] [place] [address] 33022- 1719 17 Jun, 2015 COPD (chronic obstructive pulmonary disease) J44.9 [place] [facility] [id number] [place] [address] 65473- 0162 May, [facility] [id number] [place] [address] 22363- 3790 Mar, Other chest pain R07.89 [facility] [id number] [place] [address] 37648- 5585 Mar, [facility] [address] 39743- 4557 Feb, Hypertension, benign I10 ; Shortness of breath R06.02 and Edema of abdominal wall R60.0 [facility] [address] 63760- 6459 Jan, [facility] [id number] [place] [address] 88252- 0860 Dec, Sinusitis 473.9 and Chronic airway obstruction, not elsewhere classified 496 [facility] [id number] [place] [address] 95490- 1084 Dec, [facility] [id number] [place] [address] 28043- 3435 Dec, [facility] [id number] [place] [address] 57128- 8916 Nov, [facility] [id number] [place] [address] [id number] September, Dental examination V72.2 [facility] [id number] [place] [address] 48749- 7634 September, [facility] [id number] [place] [address] 82339- 1982 Aug, [facility] [id number] [place] [address] 98277- 3608 Aug, [facility] [id number] [place] [address] 58431- 9339 Jul, [facility] [id number] [address]- 5441 Jun, 2014 [facility] [place] [facility] [address] [id number] [place] [address]- 7656 Jun, 2014 [facility] [place] [facility] [address] [id number] [place] [address] 2546 Jun, 2014 [facility] [place] [facility] [address] [id number] [place] [address]- 8236 Jun, 2014 [facility] [place] [facility] [address] [id number] [place] [address] 2546 Jun, 2014 [facility] [place] [facility] [address] [id number] [place] [address]- 9086 Jun, 2014 [facility] [place] [facility] [address] [facility] [id number] [place] [address]- 8925 Jun, 2014 [facility] [place] [facility] [address] [id number] [place] [address]- 4754 Jun, 2014 [facility] [place] [facility] [address] [id number] [place] [address]- 0152 Jun, 2014 [facility] [place] [facility] [address] [facility] [id number] [place] [address]- 1750 Jun, 2014 [facility] [place] [facility] [address] [facility] [id number] [place] [address]- 1459 Jun, [facility] [place] [facility] [address] [id number] [address]- 2548 Jun, [facility] [place] [facility] [address] [id number] [place] [address]- 1952 May, [facility] [place] [facility] [address] [id number] [place] [address]- 7406 May, [facility] [place] [facility] [address] [facility] [id number] [place] [address]- 0766 May, [facility] [place] [facility] [address] [id number] [place] [address]- 7963 May, [facility] [place] [facility] [address] [id number] [place] [address]- 2415 May, [facility] [place] [facility] [address] [id number] [place] [address]- 3078 May, [facility] [place] [facility] [address] [id number] [place] [address]- 2891 Apr, [facility] [place] [facility] [address] [id number] [place] [address]- 1023 Apr, [facility] [place] [facility] [address] [id number] [place] [address]- 3602 Apr, [facility] [place] [facility] [address] [id number] [place] [address]- 9274 Mar, [facility] [place] [facility] [address] [id number] [place] [address]- 2258 Mar, [facility] [place] [facility] [address] [id number] [place] [address]- 7210 Mar, [facility] [place] [facility] [address] [id number] [place] [address]- 7554 Mar, [facility] [place] [facility] [address] [id number] [place] [address]- 1904 Mar, [facility] [place] [facility] [address] [id number] [place] [address]- 3215 Mar, [facility] [place] [facility] [address] [id number][place] [address]- 0933 Mar, [facility] [place] [facility] [address] [id number], [place] [address]- 4355 Mar, [facility] [place] [facility] [address] [id number][place] [address]- 8884 Mar, [facility] [place] [facility] [address] [id number][place] [address]- 4079 Mar, [facility] [place] [facility] [address] [id number] [place] [address]- 1788 Feb, [facility] [place] [facility] [address] [id number] [place] [address]- 4281 Feb, [facility] [place] [facility] [address] [id number] [place] [address]- 2937 Feb, [facility] [place] [facility] [address] [id number] [place] [address]- 5640 Feb, [facility] [place] [facility] [address] [id number] [place] [address]- 5597 Jan, [facility] [place] [facility] [address] [id number] [place] [address]- 4350 Jan, [facility] [place] [facility] [address] [id number] [place] [address]- 6848 Jan, [facility] [place] [facility] [address] [id number] [place] [address]- 9684 Jan, [facility] [place] [facility] [address] [id number] [place] [address]- 6019 Dec, [facility] [place] [facility] [address] [id number] [place] [address]- 0391 Dec, [facility] [place] [facility] [address] [id number] [place] [address]- 7929 Dec, [facility] [place] [facility] [address] [id number] [place] [address]- 5306 Dec, [facility] [place] [facility] [address] [id number] [place] [address]- 8925 Dec, [facility] [place] [facility] [address] [id number] [place] [address]- 2739 Dec, [facility] [place] [facility] [address] [id number] [place] [address]- 8158 Nov, [facility] [place] [facility] [address] [id number] [place] [address]- 6748 Nov, [facility] [place] [facility] [address] [id number] [place] [address]- 2792 Nov, [facility] [place] [facility] [address] [id number] [place] [address]- 0773 Nov, [facility] [place] [facility] [address] [facility] [id number] [place] 7792 September, [facility] [place] [facility] [address] [id number] [place] 0428 September, [facility] [place] [facility] [address] [id number] [place] [address]- 8817 Jul, [facility] [place] [facility] [address] [id number] [place] [address]- 9840 Jul, [facility] [place] [facility] [address] [facility] [id number] [place] [address]- 0718 Jul, [facility] [place] [facility] [address] [id number] [place] [address]- 3999 Jul, [facility] [place] [facility] [address] [id number] [place] [address]- 1834 Jun, [facility] [place] [facility] [address] [facility] [id number] [place] [address]- 4056 Jun, [facility] [place] [facility] [address] [id number] [place] [address]- 0971 Jun, [facility] [place] [facility] [address] [id number] [place] [address]- 1756 Jun, [facility] [place] [facility] [address] [id number] [place] [address]- 1750 Jun, [facility] [place] [facility] [address] [id number] [place] [address]- 0350 Jun, [facility] [place] [facility] [address] [facility] [id number] [place] [address]- 4716 Jun, [facility] [place] [facility] [address] [id number] [place] [address]- 6958 18 Jun, 2013 [facility] [place] [facility] [address] [id number] [place] [address]- 4234 Jun, [facility] [place] [facility] [address] [id number] [place] [address]- 3292 Jun, [facility] [place] [facility] [address] [id number] [place] [address]- 3170 May, [facility] [place] [facility] [address] [id number] [place] [address]- 0156 May, [facility] [place] [facility] [address] [id number] [place] [address]- 5602 Apr, [facility] [place] [facility] [address] [id number] [place] [address]- 7644 Apr, [facility] [place] [facility] [address] [id number] [place] [address]- 4975 Apr, [facility] [place] [facility] [address] [id number] [place] [address]- 9608 Apr, [facility] [place] [facility] [address] [id number] [place] [address]- 2498 Apr, [facility] [place] [facility] [address] [id number] [place] [address]- 4569 Apr, [facility] [place] [facility] [address] [id number] [place] [address]- 2613 Mar, [facility] [place] [facility] [address] [id number] [place] [address]- 4252 Mar, [facility] [place] [facility] [address] [id number] [place] [address]- 0126 Feb, [facility] [place] [facility] [address] [id number] [place] [address]- 9516 09 Jan, 2013 [facility] [place] [facility] [address] [id number] [place] [address]- 6996 Jan, [facility] [address] [id number] [place] [address]- 7921 Dec, [facility] [place] [facility] [address] [id number] [place] [address]- 6660 Dec, [facility] [place] [facility] [address] [id number] [place] [address]- 7587 Nov, [facility] [place] [facility] [address] [id number] [place] [address]- 9002 Nov, [facility] [place] [facility] [address] [id number] [place] [address]- 8589 Oct, [facility] [place] [facility] [address] [id number] [place] [address]- 1945 September, [facility] [place] [facility] [address] [id number] [place] [address]- 4453 September, [facility] [place] [facility] [address] [id number] [place] [address]- 4054 Aug, [facility] [place] [facility] [address] [id number] [place] [address]- 4433 Aug, [facility] [place] [facility] [address] [id number] [place] [address]- 2085 Aug, [facility] [place] [facility] [address] [id number] [place] [address]- 7109 Aug, [facility] [place] [facility] [address] [id number] [place] [address]- 7523 Aug, [facility] [place] [facility] [address] [id number] [place] [address]- 5244 Jun, [facility] [place] [facility] [address] [id number] [place] [address]- 8273 Jun, [facility] [place] [facility] [address] [id number] [place] [address]- 4029 Jun, [facility] [place] [facility] [address] [id number] [place] [address]- 2872 May, [facility] [place] [facility] [address] [id number] [place] [address]- 7914 May, [facility] [place] [facility] [address] [id number] [place] [address]- 6390 Apr, [facility] [place] [facility] [address] [id number] [place] [address]- 7268 Mar, [facility] [place] [facility] [address] [id number] [place] [address]- 2963 Mar, [facility] [place] [facility] [address] [id number] [place] [address]- 4403 Mar, [facility] [place] [facility] [address] [id number] [place] [address]- 7952 Mar, [facility] [place] [facility] [address] [id number] [place] [address]- 1685 Mar, [facility] [place] [facility] [address] [id number] [place] [address]- 3059 Mar, [facility] [place] [facility] [address] [id number] [place] [address]- 6846 Mar, [facility] [place] [facility] [address] [id number] [place] [address]- 1127 Mar, [facility] [place] [facility] [address] [id number] [place] [address]- 6273 Feb, [facility] [place] [facility] [address] [id number] [place] [address]- 8106 Feb, [facility] [place] [facility] [address] [id number] [place] [address]- 6999 Feb, [facility] [place] [facility] [address] [id number] [place] [address]- 3736 Feb, [facility] [place] [facility] [address] [id number] [place] [address]- 4646 Dec, [facility] [address] [facility] [id number], [place] [address]- 6085 Nov, [facility] [address] [address]- 0656 Nov, [facility] [address] [address]- 2957 Nov, [facility] [address] [address]- 5373 Nov, [facility] [id number] [address]- 2609 Nov, [facility] [address] [address]- 4137 Nov, IMMUNIZATIONS No Known Immunizations SOCIAL HISTORY Never Assessed REASON FOR VISIT Oxygen Supplies PLAN OF CARE VITAL SIGNS MEDICATIONS Unknown Medications RESULTS No Results PROCEDURES No Known procedures INSTRUCTIONS MEDICATIONS ADMINISTERED No Known Medications MEDICAL (GENERAL) HISTORY Type Description Date Medical History COPD Medical History hypertension Surgical History sinus surgery 2013 Surgical History bladder cancer 2007 Surgical History angiogram 05/2014 Hospitalization History surgeries Hospitalization History hypertension 05/2014 Hospitalization History chest pain, hypertension 02/13/2016
--- OUTSIDE RECORDS SUMMARY | 2018-07-10 05:43 | XMS REPORT ---
Author Author LYNN JACOBO Organization [employer] Address Unknown Phone Unavailable Care Team Providers Care Rehabilitation Tech Name Role Phone LYNN JACOBO CP Unavailable Allergies No Known Allergies Problems Problem Type Condition Code Onset Dates Condition Status Problem Obesity, unspecified 278.00 Active Problem Cough 786.2 Active Problem Pneumonia, organism unspecified 486 Active Problem Mood disorder F39 Active Problem Hypertension, benign I10 Active Problem Gastroesophageal reflux disease without esophagitis K21.9 Active Problem Allergic rhinitis, cause unspecified 477.9 Active Problem Acute bronchitis 466.0 Active Problem Unspecified hypertrophic and atrophic condition of skin 701.9 Active Problem Acute upper respiratory infections of unspecified site 465.9 Active Problem Other abnormal glucose 790.29 Active Problem Chronic airway obstruction, not elsewhere classified 496 Active Problem Need for prophylactic vaccination and inoculation, Influenza V04.81 Active Problem Pain in soft tissues of limb 729.5 Active Medications No Known Medications Results No Known Results Summary Purpose [employer] Submission
--- OUTSIDE RECORDS SUMMARY | 2018-07-10 05:43 | XMS REPORT ---
Author Author LYNN JACOBO Organization [employer] Address Unknown Phone Unavailable Care Team Providers Care Mine Captain Name Role Phone LYNN JACOBO CP Unavailable [...]
--- OUTSIDE RECORDS SUMMARY | 2018-07-10 05:43 | XMS REPORT ---
Author Author LYNN JACOBO [facility] Address [address] [place] [address] Care Team Providers Care Radio Performer Name Role Phone LYNN JACOBO Unavailable PROBLEMS Type Condition ICD9-CM Code [id number] Code Onset Dates Condition Status SNOMED Code Problem Pain in soft tissues of limb 729.5 Active 06601496 Problem Pneumonia, organism unspecified 486 Active 509938360 Problem Obesity, unspecified 278.00 Active 405845132 Problem Hypertension, benign I10 Active 07915434 Problem Unspecified hypertrophic and atrophic condition of skin 701.9 Active 288513141 Problem Acute bronchitis 466.0 Active 25664328 Problem Cough 786.2 Active 12408437 Problem Acute upper respiratory infections of unspecified site 465.9 Active 39287036 Problem Allergic rhinitis, cause unspecified 477.9 Active 43518162 Assessment Chronic obstructive pulmonary disease, unspecified COPD type J44.9 Jan, Active 92989392 Problem Other abnormal glucose 790.29 Active 934345487 Problem Chronic airway obstruction, not elsewhere classified 496 Active 98504487 Assessment Essential hypertension I10 Jan, Active 69611916 Problem Need for prophylactic vaccination and inoculation, Influenza V04.81 Active 821532419 ALLERGIES Substance Reaction Event Type Date Status Hydrochlorothiazide nausea Drug Allergy Jan, Active SOCIAL HISTORY No smoking Hx information available PLAN OF CARE VITAL SIGNS Height 75 in 2016-01-10 Weight 335.2 lbs 2016-01-10 Heart Rate 82 bpm 2016-01-10 Respiratory Rate 24 2016-01-10 BMI 41.89 kg/m2 2016-01-10 Blood pressure systolic 150 mmHg 2016-01-10 Blood pressure diastolic 78 mmHg 2016-01-10 MEDICATIONS Medication Instructions Dosage Frequency Start Date End Date Duration Status Albuterol Sulfate (2.5 MG/3ML) 0.083% USE ONE VIAL PER NEBULIZER FOUR TIMES DAILY NEEDED 13 Active Singulair 10 MG Orally Once a day 1 tablet in the evening 24h Jul, 30 day(s) Active Atrovent HFA 17 mcg/actuation 2 puffs 6h 13 Jun, 2014 Active Metoprolol Tartrate 100 MG Orally Twice a day 1 tablet 12h Mar, 30 day(s) Active Advair Diskus 250-50 MCG/DOSE 1 puff 12h Jun, Active Tramadol HCl 50 mg Orally every 6 hrs 1 tablet as needed 6h 15 Aug, 2015 Active Loratadine 10 mg take 1 tablet by Oral route 1 time per day take at hs 06 Dec, 2013 Active Flonase 50 MCG/ACT Nasally Once a day 1 spray in each nostril 24h Dec, Active Amlodipine Besylate 10 MG Orally Once a day 1 tablet 24h Active Lasix 20 MG Orally Once a day 1 tablet 24h Active Tudorza Pressair 400 mcg/actuation Inhalation Twice a day 1 puff 12h Jun Active RESULTS No Results PROCEDURES Procedure Date Ordered Related Diagnosis Body Site Office Visit, Est Pt., Level 3 Jan 10, 2016 IMMUNIZATIONS No Known Immunizations
--- OUTSIDE RECORDS SUMMARY | 2018-07-10 05:43 | XMS REPORT ---
Author Author LYNN JACOBO Organization [employer] Address Unknown Phone Unavailable Care Team Providers Care Parts Consultant Name Role Phone LYNN JACOBO CP Unavailable Allergies No Known Allergies Problems Problem Type Condition Code Onset Dates Condition Status Problem Need for prophylactic vaccination and inoculation, Influenza V04.81 Active Problem Obesity, unspecified 278.00 Active Problem Pain in soft tissues of limb 729.5 Active Problem Other abnormal glucose 790.29 Active Problem Chronic airway obstruction, not elsewhere classified 496 Active Problem Unspecified hypertrophic and atrophic condition of skin 701.9 Active Problem Acute upper respiratory infections of unspecified site 465.9 Active Problem Hypertension, benign I10 Active Problem Cough 786.2 Active Problem Pneumonia, organism unspecified 486 Active Problem Allergic rhinitis, cause unspecified 477.9 Active Problem Acute bronchitis 466.0 Active Medications No Known Medications Results No Known Results Summary Purpose [employer] Submission
--- OUTSIDE RECORDS SUMMARY | 2018-07-10 05:43 | XMS REPORT ---
Author LYNN Solares [facility] [place] [employer] Address Unknown Phone Unavailable Care Team Providers Care Banquet Set Up Person Name Role Phone LYNN JACOBO CP Unavailable Allergies, Adverse Reactions, Alerts Substance Reaction Event Type Hydrochlorothiazide nausea Drug Allergy Problems Problem Type Condition Code Onset Dates Condition Status Problem Need for prophylactic vaccination and inoculation, Influenza V04.81 Active Problem Obesity, unspecified 278.00 Active Problem Pain in soft tissues of limb 729.5 Active Problem Unspecified hypertrophic and atrophic condition of skin 701.9 Active Problem Acute upper respiratory infections of unspecified site 465.9 Active Problem Hypertension, benign I10 Active Problem Cough 786.2 Active Problem Pneumonia, organism unspecified 486 Active Problem Allergic rhinitis, cause unspecified 477.9 Active Problem Acute bronchitis 466.0 Active Assessment Other chest pain R07.89 Active Problem Other abnormal glucose 790.29 Active Problem Chronic airway obstruction, not elsewhere classified 496 Active Medications Medication Code System Code Instructions Start Date End Date Status Dosage tramadol ND 0 50 mg Jul 02, 2014 take 1 tablet by Oral route every 6 hours as needed PRN pain- MUST LAST [address] [facility] [address]-47 108 (90 Base) MCG/ACT Inhalation every 4 hrs Dec 11, 2014 2 puffs as needed Omeprazole [facility] [address]-27 20 mg May 23, 2014 take 1 capsule ( 20 mg) by oral route once daily before a meal Amlodipine Besylate [facility] 93609693541 5 MG TAKE ONE TABLET BY MOUTH AT BEDTIME Albuterol Sulfate [facility] [id number] (2.5 MG/3ML) 0.083% USE ONE VIAL PER NEBULIZER FOUR TIMES DAILY NEEDED Loratadine [facility] [address]-80 10 mg Dec 13, 2013 take 1 tablet by Oral route 1 time per day take at hs Advair Diskus [facility] [address]-54 250-50 mcg/dose Jun 20, 2014 1 puffs by Inhalation route 2 times per day Atrovent HFA [facility] [address]-51 17 mcg/actuation Jun 22, 2014 2 puffs by Inhalation route 4 times per day Flonase [facility] [address]-34 50 MCG/ACT Nasally Once a day Dec 24, 2014 1 spray in each nostril Metoprolol Tartrate [facility] [address]-79 50 MG Orally Twice a day Apr 08, [address] [facility] [address]-15 50 mcg/actuation Jun 18, 2014 1 sprays by Nasal route 2 times per day in each nostril Procedures Procedure Coding System Code Date Office Visit, Est Pt., Level 3 CPT-4 72041 Apr 08, 2015 MEASURE BLOOD OXYGEN LEVEL CPT-4 02459 Apr 08, 2015 Vital Signs Date/Time: Apr 08, 2015 Temperature 97.9 F Weight 341.7 lbs Height 75 in Oximetry 97 % Blood Pressure Diastolic 72 mmHg Blood Pressure Systolic 148 mmHg Cardiac Monitoring Heart Rate 88 bpm BMI 42.70 Index Results No Known Results Summary Purpose [employer] Submission
--- OUTSIDE RECORDS SUMMARY | 2018-07-10 05:43 | XMS REPORT ---
Author Author LYNN JACOBO Organization [facility] Address [address] [place] [address] Care Team Providers Care Coarse Wire Drawer Name Role Phone LYNN JACOBO Unavailable PROBLEMS Type Condition ICD9-CM Code KET39-PP Code Onset Dates Condition Status SNOMED Code Problem Mood disorder F39 Active 86447432 Problem Hypertension, benign I10 Active 31692076 Problem Simple chronic bronchitis J41.0 Active 86598719 Problem History of elevated glucose Z86.39 Active Problem Chronic obstructive pulmonary disease, unspecified COPD type J44.9 Active 00165913 Problem Gastroesophageal reflux disease without esophagitis K21.9 Active 452363564 Problem Panlobular emphysema J43.1 Active 4897087 Problem Lumbago with sciatica, right side M54.41 Active [id number] ALLERGIES No Information ENCOUNTERS Encounter Location Date Diagnosis [facility] [id number] [place] [address] 14786- 1815 May, [place] [id number] [place] [address] 40191- 6975 May, Chronic obstructive pulmonary disease, unspecified COPD type J44.9 [facility] [id number] [place] [address] 33371- 6836 May, Hypertension, benign I10 and Simple chronic bronchitis J41.0 [facility] [id number] [place] [address] 91766- 7751 Apr, [facility] [id number] [place] [address] 63088- 0789 Apr, Panlobular emphysema J43.1 [facility] [id number] [place] [address] 24980- 5987 Mar, Chronic obstructive pulmonary disease, unspecified COPD type J44.9 [facility] [id number] [place] [address] 60708- 9219 Feb, Chronic obstructive pulmonary disease, unspecified COPD type J44.9 [facility] [id number] [place] [address] 59681- 8241 Dec, Chronic obstructive pulmonary disease, unspecified COPD type J44.9 [facility] [id number] [place] [address] 34094- 8267 Dec, [facility] [address] 56568- 1453 Dec, Mood disorder F39 ; Hypertension, benign I10 and Gastroesophageal reflux disease without esophagitis K21.9 [facility] [id number] [place] [address] [id number] Oct, Dental caries K02.9 [facility] [id number] [place] [address] [id number] September, Dental caries K02.9 [place] [id number] [place] [address] 65964- 5751 September, History of elevated glucose Z86.39 and Eustachian tube dysfunction, bilateral H69.83 [facility] [id number] [place] [address] 18461- 4409 September, [place] [id number] [place] [address] 56788- 7552 September, Dental examination Z01.20 [facility] [id number] [place] [address] 61534- 0394 Aug, [place] [id number] [place] [address] 62750- 0868 Aug, [place] [id number] [place] [address] 61506- 9743 Jun, [facility] [id number] [place] [address] 29059- 3742 Jun, Chronic obstructive pulmonary disease, unspecified COPD type J44.9 [facility] [id number] [address]- 3864 Jun, [facility] [id number] [place] [address] 09806- 5488 Apr, [facility] [id number] [place] [address] 90561- 1075 Mar, Chronic obstructive pulmonary disease, unspecified COPD type J44.9 and Lumbago with sciatica, right side M54.41 [facility] [id number] [place] [address] 14752- 6945 Feb, [facility] [id number] [place] [address] 61552- 8588 Feb, [facility] [id number] [place] [address] 87173- 9373 Feb, [facility] [id number] [place] [address] 49312- 0975 Feb, Gastroesophageal reflux disease without esophagitis K21.9 [facility] [id number] [place] [address] 88170- 6751 Feb, [facility] [id number] [place] [address] 22165- 3675 Feb, [facility] [id number] [place] [address] 81074- 6276 Feb, Mood disorder F39 [facility] [id number] [place] [address] 39664- 8365 Jan, [facility] [id number] [place] [address] 04802- 0883 Jan, Chronic obstructive pulmonary disease, unspecified COPD type J44.9 and Essential hypertension I10 [facility] [id number] [place] [address] 43266- 6397 Nov, [facility] [id number] [place] [address] 88100- 5469 September, Chronic obstructive pulmonary disease, unspecified COPD type J44.9 and Edema, unspecified type R60.9 [facility] [id number] [place] [address] 83588- 1283 September, [facility] [address] 96217- 0596 September, [facility] [address] 97623- 6381 September, Other chest pain R07.89 [facility] [address] 06256- 6492 Aug, Hypertension I10 [place] [facility] [address] 72661- 1430 Jul, Moderate persistent asthma without complication J45.40 [facility] [address] 77101- 0654 Jun, COPD (chronic obstructive pulmonary disease) J44.9 [facility] [address] 84975- 9443 Jun, COPD (chronic obstructive pulmonary disease) J44.9 [facility] [id number] [place] [address] 41687- 0094 Jun, COPD (chronic obstructive pulmonary disease) J44.9 [facility] [id number] [place] [address] 39583- 8332 May, [facility] [id number] [place] [address] 36909- 4246 Mar, Other chest pain R07.89 [facility] [facility] [address] 29852- 1839 Mar, [facility] [id number] [place] [address] 04845- 0267 Feb, Hypertension, benign I10 ; Shortness of breath R06.02 and Edema of abdominal wall R60.0 [facility] [id number] [place] [address] 43243- 5054 Jan, [facility] [id number] [place] [address] 969141- 5626 Dec, Sinusitis 473.9 and Chronic airway obstruction, not elsewhere classified 496 [facility] [id number] [place] [address] 352227- 6633 Dec, [facility] [id number] [place] [address] 58653- 0069 Dec, [facility] [id number] [place] [address] 98597- 3976 Nov, [facility] [id number] [place] [address] [id number] September, Dental examination V72.2 [facility] [id number] [place] [address] 26468- 9721 September, [facility] [id number] [place] [address] 47921- 1624 Aug, [facility] [id number] [place] [address] 34548- 1526 Aug, [facility] [id number] [place] [address] 91023- 5653 Jul, [facility] [id number] [place] [address] 12412- 0062 Jun, [facility] [id number] [place] [address] 65575- 4363 Jun, [facility] [id number] [place] [address] 53327- 2476 Jun, [facility] [id number] [place] [address] 28058- 1010 Jun, [facility] [id number] [place] [address] 08143- 2620 Jun, 2014 [facility] [place] [facility] [address] [id number] [place] [address]- 3316 Jun, 2014 [facility] [place] [facility] [address] [id number] [place] [address]- 1406 Jun, 2014 [facility] [place] [facility] [address] [id number] [place] [address]- 8496 Jun, 2014 [facility] [place] [facility] [address] [id number] [place] [address]- 8586 Jun, 2014 [facility] [place] [facility] [address] [id number] [place] [address]- 7948 Jun, 2014 [facility] [place] [facility] [address] [id number] [place] [address]- 8550 Jun, [facility] [place] [facility] [address] [id number] [place] [address]- 2893 Jun, [facility] [place] [facility] [address] [id number] [place] [address]- 3851 May, [facility] [place] [facility] [address] [id number] [place] [address]- 1305 May, [facility] [place] [facility] [address] [facility] [id number] [place] [address]- 7946 May, [facility] [place] [facility] [address] [id number] [place] [address]- 4132 May, [facility] [place] [facility] [address] [id number] [address]- 8749 May, [facility] [place] [facility] [address] [id number] [place] [address]- 4998 May, [facility] [place] [facility] [address] [facility] [id number] [place] [address]- 7575 Apr, [facility] [place] [facility] [address] [id number] [place] [address]- 4659 Apr, [facility] [place] [facility] [address] [id number] [place] 5033 Apr, [facility] [place] [facility] [address] [id number] [place] [address]- 4908 Mar, [facility] [place] [facility] [address] [id number] [place] [address]- 5794 Mar, [facility] [place] [facility] [address] [id number] [place] [address]- 2087 Mar, [facility] [place] [facility] [address] [id number] [place] [address]- 0963 Mar, [facility] [place] [facility] [address] [id number] [place] [address]- 3853 Mar, [facility] [place] [facility] [address] [id number] [place] [address]- 0459 Mar, [facility] [place] [facility] [address] [id number] [place] [address]- 6063 Mar, [facility] [place] [facility] [address] [id number] [place] [address]- 9674 Mar, [facility] [place] [facility] [address] [id number] [place] [address]- 5324 Mar, [facility] [place] [facility] [address] [id number] [place] [address]- 0859 Mar, [facility] [place] [facility] [address] [id number] [address]- 7010 Feb, [facility] [place] [facility] [address] [id number] [place] [address]- 2802 Feb, [facility] [place] [facility] [address] [id number] [place] [address]- 9290 Feb, [facility] [place] [facility] [address] [id number] [place] 2704 Feb, [facility] [place] [facility] [address] [id number] [address]- 2592 Jan, [facility] [place] [facility] [address] [id number] [place] [address]- 5338 Jan, [facility] [place] [facility] [address] [id number] [place] [address]- 6291 Jan, [facility] [place] [facility] [address] [id number] [place] [address]- 8370 Jan, [facility] [place] [facility] [address] [id number] [place] [address]- 0354 Dec, [facility] [place] [facility] [address] [id number] [place] [address]- 9954 Dec, [facility] [place] [facility] [address] [id number] [place] [address]- 3203 Dec, [facility] [place] [facility] [address] [id number] [place] [address]- 9512 Dec, [facility] [place] [facility] [address] [id number] [place] [address]- 6234 Dec, [facility] [place] [facility] [address] [id number] [place] [address]- 5348 Dec, [facility] [place] [facility] [address] [id number] [place] [address]- 8944 Nov, [facility] [place] [facility] [address] [id number] [place] [address]- 8004 Nov, [facility] [place] [facility] [address] [id number] [place] [address]- 8187 Nov, [facility] [place] [facility] [address] [id number] [place] [address]- 4636 Nov, [facility] [place] [facility] [address] [id number] [place] [address]- 2703 September, [facility] [place] [facility] [address] [id number] [place] [address]- 0712 September, [facility] [place] [facility] [address] [id number] [place] [address]- 5642 Jul, [facility] [place] [facility] [address] [id number] [place] [address]- 6630 Jul, [facility] [place] [facility] [address] [id number] [place] [address]- 4653 Jul, [facility] [place] [facility] [address] [id number] [place] [address]- 5971 Jul, [facility] [place] [facility] [address] [id number] [place] [address]- 0700 Jun, [facility] [place] [facility] [address] [id number] [place] [address]- 3926 Jun, [facility] [place] [facility] [address] [facility] [id number] [place] [address]- 1655 Jun, [facility] [place] [facility] [address] [facility] [id number] [place] [address]- 9690 Jun, [facility] [place] [facility] [address] [id number] [place] [address]- 8578 Jun, [facility] [place] [facility] [address] [facility] [id number] [place] [address]- 7880 Jun, [facility] [place] [facility] [address] [facility] [id number] [place] [address]- 6406 Jun, [facility] [place] [facility] [address] [facility] [id number] [address]- 5795 Jun, [facility] [place] [facility] [address] [facility] [id number] [place] [address]- 6836 Jun, [facility] [place] [facility] [address] [id number] [place] [address]- 4136 Jun, [facility] [place] [facility] [address] [facility] [id number], [place] [address]- 2952 May, [facility] [place] [facility] [address] [facility] [id number], [place] [address]- 4124 May, [facility] [address] [id number] [place] [address]- 1692 Apr, [facility] [place] [facility] [address] [id number] [place] [address]- 3172 Apr, [facility] [place] [facility] [address] [id number] [place] [address]- 9217 Apr, [facility] [place] [facility] [address] [id number] [place] [address]- 2548 Apr, [facility] [address] [id number] [place] [address]- 0140 Apr, [facility] [place] [facility] [address] [id number] [place] [address]- 0690 Apr, [facility] [address] [facility] [id number] [place] [address]- 3521 Mar, [facility] [place] [facility] [address] [id number] [place] [address]- 8566 Mar, [facility] [place] [facility] [address] [facility] [id number] [place] [address]- 7413 Feb, [facility] [place] [facility] [address] [facility] [id number] [place] [address]- 6014 Jan, [facility] [place] [facility] [address] [id number] [place] [address]- 9469 Jan, [facility] [place] [facility] [address] [id number] [place] [address]- 1756 Dec, [facility] [place] [facility] [address] [id number] [place] [address]- 6159 Dec, [facility] [place] [facility] [address] [id number] [place] [address]- 5516 Nov, [facility] [place] [facility] [address] [facility] [id number] [place] [address]- 6157 Nov, [facility] [place] [facility] [address] [id number] [place] [address]- 7234 Oct, [facility] [address] [id number] [place] [address]- 3569 September, [facility] [place] [facility] [address] [id number] [place] [address]- 6085 September, [facility] [address] [id number] [place] [address]- 6197 Aug, [facility] [place] [facility] [address] [id number] [place] [address]- 2074 Aug, [facility] [address] [id number] [place] [address]- 6781 Aug, [facility] [place] [facility] [address] [id number] [place] [address]- 5876 Aug, [facility] [address] [id number] [place] [address]- 3187 Aug, [facility] [address] [id number] [place] [address]- 4779 Jun, [facility] [address] [id number] [place] [address]- 4167 Jun, [facility] [address] [id number] [place] [address]- 6586 Jun, [facility] [address] [id number] [place] [address]- 2307 May, [facility] [place] [facility] [address] [id number] [place] [address]- 1755 May, [facility] [place] [facility] [address] [id number] [place] [address]- 1532 Apr, [facility] [place] [facility] [address] [id number] [place] [address]- 9439 Mar, [facility] [place] [facility] [address] [id number] [place] [address]- 6838 Mar, [facility] [place] [facility] [address] [id number] [place] [address]- 3189 Mar, [facility] [place] [facility] [address] [id number] [place] [address]- 6756 Mar, [facility] [place] [facility] [address] [id number] [place] [address]- 9096 Mar, [facility] [place] [facility] [address] [id number] [place] [address]- 1287 Mar, [facility] [place] [facility] [address] [id number] [place] [address]- 5284 Mar, [facility] [place] [facility] [address] [id number] [place] [address]- 3142 Mar, [facility] [place] [facility] [address] [id number] [place] [address]- 6179 Feb, [facility] [place] [facility] [address] [id number] [place] [address]- 0220 Feb, [facility] [place] [facility] [address] [id number] [place] [address]- 2667 Feb, [facility] [place] [facility] [address] [id number] [place] [address]- 3446 Feb, [facility] [place] [facility] [address] [id number], [place] [address]- 9929 Dec, [facility] [place] [facility] [address] [id number], [place] [address]- 3575 Nov, [facility] [place] [facility] [address] [id number] [place] [address]- 6379 Nov, [facility] [place] [facility] [address] [id number] [place] [address]- 9538 Nov, [facility] [place] [facility] [address] [id number] [place] [address]- 2157 Nov, [facility] [place] [facility] [address] [facility] [id number] [place] [address]- 2562 Nov, [facility] [address] [facility] [id number] [place] [address]- 7389 Nov, IMMUNIZATIONS No Known Immunizations SOCIAL HISTORY Never Assessed REASON FOR VISIT Refill request PLAN OF CARE VITAL SIGNS MEDICATIONS Unknown [...]
--- OUTSIDE RECORDS SUMMARY | 2018-07-10 05:43 | XMS REPORT ---
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 Role Phone LYNN JACOBO Unavailable PROBLEMS Type Condition ICD9-CM Code CBG94-GP Code Onset Dates Condition Status SNOMED Code Problem Mood disorder F39 Active 32116791 Problem Hypertension, benign I10 Active 02684533 Problem Simple chronic bronchitis J41.0 Active 79937925 Problem History of elevated glucose Z86.39 Active Problem Chronic obstructive pulmonary disease, unspecified COPD type J44.9 Active 79613830 Problem Gastroesophageal reflux disease without esophagitis K21.9 Active 721255690 Problem Panlobular emphysema J43.1 Active 7957801 Problem Lumbago with sciatica, right side M54.41 Active 153596329 ALLERGIES Substance Reaction Event Type Date Status Hydrochlorothiazide nausea Drug Allergy Dec, Active ENCOUNTERS Encounter Location Date Diagnosis [facility] [id number] [place] [address] 06392- 4480 May, [facility] [id number] [place] [address] 24225- 4129 May, Chronic obstructive pulmonary disease, unspecified COPD type J44.9 [facility] [id number] [place] [address] 39792- 3223 May, Hypertension, benign I10 and Simple chronic bronchitis J41.0 [facility] [id number] [place] [address] 12975- 9140 Apr, [facility] [address] 81008- 6914 Apr, Panlobular emphysema J43.1 [facility] [id number] [place] [address] 89142- 9066 Mar, Chronic obstructive pulmonary disease, unspecified COPD type J44.9 [facility] [id number] [place] [address] 01442- 7974 Feb, Chronic obstructive pulmonary disease, unspecified COPD type J44.9 [facility] [id number] [place] [address] 72175- 5219 Dec, Chronic obstructive pulmonary disease, unspecified COPD type J44.9 [facility] [address] 13943- 6467 Dec, [facility] [id number] [place] [address] 62624- 6229 Dec, Mood disorder F39 ; Hypertension, benign I10 and Gastroesophageal reflux disease without esophagitis K21.9 [facility] [id number] [place] [address] [id number] Oct, Dental caries K02.9 [facility] [id number] [place] [address] [id number] September, Dental caries K02.9 [facility] [id number] [place] [address] 98933- 4214 September, History of elevated glucose Z86.39 and Eustachian tube dysfunction, bilateral H69.83 [facility] [id number] [place] [address] 74653- 1348 September, [facility] [id number] [place] [address] 38546- 7560 September, Dental examination Z01.20 [facility] [id number] [place] [address] 61296- 9774 Aug, [facility] [id number] [place] [address] 65482- 9851 Aug, [facility] [id number] [place] [address] 89629- 1315 Jun, [facility] [id number] [place] [address] 05995- 1799 Jun, Chronic obstructive pulmonary disease, unspecified COPD type J44.9 [facility] [id number] [place] [address] 06477- 7952 Jun, [facility] [id number] [place] [address] 82533- 3212 Apr, [facility] [id number] [place] [address] 77198- 6442 Mar, Chronic obstructive pulmonary disease, unspecified COPD type J44.9 and Lumbago with sciatica, right side M54.41 [facility] [id number] [place] [address] 94098- 9838 Feb, [facility] [id number] [place] [address] 72550- 4002 Feb, [facility] [id number] [place] [address] 17471- 9495 Feb, [facility] [id number] [place] [address] 04642- 3529 Feb, Gastroesophageal reflux disease without esophagitis K21.9 [facility] [id number] [place] [address] 15886- 6744 Feb, [facility] [id number] [place] [address] 17253- 8986 Feb, [facility] [id number] [place] [address] 05524- 4874 Feb, Mood disorder F39 [facility] [id number] [place] [address] 79953- 6960 Jan, [facility] [id number] [place] [address] 89881- 4387 Jan, Chronic obstructive pulmonary disease, unspecified COPD type J44.9 and Essential hypertension I10 [facility] [id number] [place] [address] 89947- 6088 Nov, [facility] [id number] [place] [address] 40794- 8975 September, Chronic obstructive pulmonary disease, unspecified COPD type J44.9 and Edema, unspecified type R60.9 [facility] [id number] [place] [address] 86788- 6040 September, [facility] [address] 89196- 5298 September, [facility] [id number] [place] [address] 01353- 1346 September, Other chest pain R07.89 [place] [address] 56692- 8354 Aug, Hypertension I10 [place] [facility] [id number] [place] [address] 17702- 9284 Jul, Moderate persistent asthma without complication J45.40 [facility] [id number] [place] [address] 87492- 4385 Jun, COPD (chronic obstructive pulmonary disease) J44.9 [place] [address] 23244- 0955 Jun, COPD (chronic obstructive pulmonary disease) J44.9 [facility] [id number] [place] [address] 64667- 6779 Jun, COPD (chronic obstructive pulmonary disease) J44.9 [facility] [id number] [place] [address] 78040- 2879 May, [place] [address] 08235- 3088 Mar, Other chest pain R07.89 [facility] [id number] [place] [address] 50564- 3478 Mar, [facility] [id number] [place] [address] 14292- 1289 Feb, Hypertension, benign I10 ; Shortness of breath R06.02 and Edema of abdominal wall R60.0 [facility] [id number] [place] [address] 02019- 3046 Jan, [facility] [address] 62510- 2072 Dec, Sinusitis 473.9 and Chronic airway obstruction, not elsewhere classified 496 [facility] [address] 10728- 5541 Dec, [facility] [address] 53184- 9932 Dec, [facility] [address] 84339- 6041 Nov, [facility] [address] [id number] September, Dental examination V72.2 [facility] [address] 87650- 0988 September, [facility] [id number] [place] [address] 91416- 3235 Aug, [facility] [id number] [place] [address] 78234- 6674 Aug, [facility] [id number] [place] [address] 38054- 8936 Jul, [facility] [id number] [place] [address] 67214- 2924 Jun, [facility] [id number] [place] [address] 47560- 7800 Jun, [facility] [id number] [place] [address] 50129- 2292 Jun, [facility] [id number] [place] [address] 99815- 8913 Jun, [facility] [place] [facility] [address] [id number] [place] [address]- 4982 13 Jun, 2014 [facility] [place] [facility] [address] [id number] [place] [address]- 0126 Jun, 2014 [facility] [place] [facility] [address] [id number] [place] [address]- 6149 Jun, 2014 [facility] [place] [facility] [address] [id number] [place] [address]- 7078 Jun, 2014 [facility] [place] [facility] [address] [id number] [place] [address]- 2830 Jun, 2014 [facility] [place] [facility] [address] [id number] [place] [address]- 8322 Jun, 2014 [facility] [place] [facility] [address] [facility] [id number] [place] [address]- 3924 Jun, 2014 [facility] [place] [facility] [address] [id number] [place] [address]- 0360 Jun, [facility] [place] [facility] [address] [id number] [place] [address]- 1081 May, [facility] [place] [facility] [address] [facility] [id number][place] [address]- 1722 May, [facility] [place] [facility] [address] [facility] [id number][place] [address]- 8170 May, [facility] [place] [facility] [address] [id number][place] [address]- 5313 May, [facility] [place] [facility] [address] [id number][place] [address]- 0967 May, [facility] [place] [facility] [address] [id number][place] [address]- 9283 May, [facility] [place] [facility] [address] [facility] [id number][place] [address]- 5311 Apr, [facility] [place] [facility] [address] [id number][place] [address]- 2469 Apr, [facility] [place] [facility] [address] [id number] [place] [address]- 9443 Apr, [facility] [place] [facility] [address] [facility] [id number][place] [address]- 6745 Mar, [facility] [place] [facility] [address] [facility] [id number] [place] [address]- 6341 Mar, [facility] [place] [facility] [address] [id number][place] [address]- 6159 Mar, [facility] [place] [facility] [address] [facility] [id number] [place] [address]- 6284 Mar, [facility] [place] [facility] [address] [facility] [id number][place] [address]- 6774 Mar, [facility] [place] [facility] [address] [facility] [id number][place] [address]- 9230 Mar, [facility] [place] [facility] [address] [facility] [id number][place] [address]- 8281 Mar, [facility] [place] [facility] [address] [facility] [id number][place] [address]- 0210 Mar, [facility] [place] [facility] [address] [facility] [id number][place] [address]- 4460 Mar, [facility] [place] [facility] [address] [facility] [id number][place] [address]- 1500 Mar, [facility] [place] [facility] [address] [facility] [id number][place] [address]- 4321 Feb, [facility] [place] [facility] [address] [id number][place] [address]- 6006 Feb, [facility] [place] [facility] [address] [facility] [id number][place] [address]- 6157 Feb, [facility] [place] [facility] [address] [facility] [id number][place] [address]- 3460 Feb, [facility] [place] [facility] [address] [id number] [place] [address]- 2862 Jan, [facility] [place] [facility] [address] [id number] [place] [address]- 5194 Jan, [facility] [place] [facility] [address] [id number] [place] [address]- 5948 Jan, [facility] [place] [facility] [address] [id number] [place] [address]- 3819 Jan, [facility] [place] [facility] [address] [id number] [place] [address]- 0594 Dec, [facility] [place] [facility] [address] [id number] [place] [address]- 1864 Dec, [facility] [place] [facility] [address] [id number] [place] [address]- 7556 Dec, [facility] [place] [facility] [address] [id number] [place] [address]- 0338 Dec, [facility] [place] [facility] [address] [id number] [place] [address]- 0754 Dec, [facility] [place] [facility] [address] [id number] [place] [address]- 6239 Dec, [facility] [place] [facility] [address] [id number] [place] [address]- 0008 Nov, [facility] [place] [facility] [address] [id number] [place] [address]- 9857 Nov, [facility] [place] [facility] [address] [id number] [place] [address]- 8444 Nov, [facility] [place] [facility] [address] [id number] [place] [address]- 7786 Nov, [facility] [place] [facility] [address] [id number] [place] [address]- 0890 September, [facility] [place] [facility] [address] [id number] [place] [address]- 5285 September, [facility] [place] [facility] [address] [id number] [place] [address]- 1849 Jul, [facility] [place] [facility] [address] [id number] [place] [address]- 9521 Jul, [facility] [place] [facility] [address] [facility] [id number] [place] [address]- 4641 Jul, [facility] [place] [facility] [address] [id number] [place] [address]- 4788 Jul, [facility] [place] [facility] [address] [id number] [place] [address]- 1405 Jun, [facility] [place] [facility] [address] [id number] [place] [address]- 2241 Jun, [facility] [place] [facility] [address] [facility] [id number] [place] [address]- 0942 Jun, [facility] [place] [facility] [address] [id number] [place] [address]- 0944 Jun, [facility] [place] [facility] [address] [id number] [place] [address]- 2740 Jun, [facility] [place] [facility] [address] [facility] [id number] [place] [address]- 4538 Jun, [facility] [place] [facility] [address] [facility] [id number] [place] [address]- 3079 Jun, [facility] [place] [facility] [address] [facility] [id number] [place] [address]- 2799 Jun, [facility] [place] [facility] [address] [facility] [id number] [place] [address]- 9661 Jun, [facility] [place] [facility] [address] [facility] [id number] [place] [address]- 2007 Jun, [facility] [place] [facility] [address] [facility] [id number] [place] [address]- 7665 May, [facility] [place] [facility] [address] [id number] [place] [address]- 7425 May, [facility] [place] [facility] [address] [id number] [place] [address]- 1433 Apr, [facility] [place] [facility] [address] [id number] [place] [address]- 9164 Apr, [facility] [place] [facility] [address] [id number] [place] [address]- 4800 Apr, [facility] [place] [facility] [address] [id number] [place] [address]- 4126 Apr, [facility] [place] [facility] [address] [id number] [place] [address]- 3450 Apr, [facility] [place] [facility] [address] [id number] [place] [address]- 7616 Apr, [facility] [place] [facility] [address] [id number] [place] [address]- 8272 Mar, [facility] [place] [facility] [address] [id number] [place] [address]- 6948 Mar, [facility] [place] [facility] [address] [id number] [place] [address]- 0385 Feb, [facility] [place] [facility] [address] [id number] [place] [address]- 1581 Jan, [facility] [place] [facility] [address] [id number] [place] [address]- 9422 Jan, [facility] [place] [facility] [address] [id number] [place] [address]- 3707 Dec, [facility] [place] [facility] [address] [id number] [place] [address]- 0226 Dec, [facility] [place] [facility] [address] [id number] [place] [address]- 2160 Nov, [facility] [place] [facility] [address] [id number] [place] [address]- 1367 Nov, [facility] [place] [facility] [address] [id number] [place] [address]- 5395 Oct, [facility] [address] [id number] [place] [address]- 3895 September, [facility] [place] [facility] [address] [id number] [place] [address]- 7025 September, [facility] [place] [facility] [address] [id number] [place] [address]- 1999 Aug, [facility] [place] [facility] [address] [id number] [place] [address]- 4874 Aug, [facility] [place] [facility] [address] [id number] [place] [address]- 0805 Aug, [facility] [place] [facility] [address] [id number] [place] [address]- 4085 Aug, [facility] [place] [facility] [address] [id number] [place] [address]- 4092 Aug, [facility] [place] [facility] [address] [id number] [place] [address]- 3808 Jun, [facility] [place] [facility] [address] [id number] [place] [address]- 9326 Jun, [facility] [place] [facility] [address] [id number] [place] [address]- 1446 Jun, [facility] [place] [facility] [address] [id number] [place] [address]- 2159 May, [facility] [place] [facility] [address] [id number] [place] [address]- 5720 May, [facility] [place] [facility] [address] [id number] [place] [address]- 9934 Apr, [facility] [place] [facility] [address] [id number] [place] [address]- 0039 Mar, [facility] [place] [facility] [address] [id number] [place] [address]- 9883 Mar, [facility] [place] [facility] [address] [id number] [place] [address]- 8496 Mar, [facility] [place] [facility] [address] [id number] [place] [address]- 3226 Mar, [facility] [place] [facility] [address] [id number] [place] [address]- 3026 Mar, [facility] [place] [facility] [address] [id number] [place] [address]- 9542 Mar, [facility] [place] [facility] [address] [id number] [place] [address]- 7341 Mar, [facility] [place] [facility] [address] [id number] [place] [address]- 3084 Mar, [facility] [place] [facility] [address] [id number] [place] [address]- 4393 Feb, [facility] [place] [facility] [address] [id number] [place] [address]- 3553 Feb, [facility] [place] [facility] [address] [id number] [place] [address]- 7585 Feb, [facility] [place] [facility] [address] [id number] [place] [address]- 9100 Feb, [facility] [place] [facility] [address] [id number] [place] [address]- 2369 Dec, [facility] [place] [facility] [address] [id number] [place] [address]- 4720 Nov, [facility] [place] [facility] [address] [id number] [place] [address]- 4218 Nov, [facility] [place] [facility] [address] [id number] [place] [address] 2546 Nov, [facility] [place] [facility] [address] [id number] [place] [address]- 1235 Nov, [facility] [address] [facility] [id number] [place] [address]- 6195 Nov, [facility] [address] [facility] [id number] [place] [address]- 3816 Nov, IMMUNIZATIONS No Known Immunizations SOCIAL HISTORY Never Assessed REASON FOR VISIT Blood Pressure - Pt states he has no concerns just checking in with the provider. - Leonor SWANSON PLAN OF CARE VITAL SIGNS Height 75 in 2016-12-18 Weight 312.7 lbs 2016-12-18 Temperature 98.6 degrees Fahrenheit 2016-12-18 Heart Rate 88 bpm 2016-12-18 Respiratory Rate 22 2016-12-18 BMI 39.08 kg/m2 2016-12-18 Blood pressure systolic 150 mmHg 2016-12-18 Blood pressure diastolic 92 mmHg 2016-12-18 MEDICATIONS Medication Instructions Dosage Frequency Start Date End Date Duration Status Tudorza Pressair 400 mcg/actuation Inhalation Twice a day 1 puff 12h Jun Active C-PAP Supplies & Tubing as directed Aug, Active Tessalon Perles 100 mg Orally Three times a day 1 capsule as needed 8h Jun, Active Omeprazole 40 MG Orally Once a day 1 capsule 24h Jun, 30 day(s ) Active Ventolin HFA 108 (90 Base) MCG/ACT Inhalation 4 times a day 2 puffs as needed 6h Active Loratadine 10 mg take 1 tablet by Oral route 1 time per day take at hs Dec, Active Flonase 50 MCG/ACT Nasally Once a day 1 spray in each nostril 24h Dec, Active Ondansetron 8 MG DISSOLVE ONE TABLET UNDER TONGUE EVERY 8 HOURS NEEDED FOR NAUSEA OR VOMITING 10 Active Nitroglycerin 0.4 MG Sublingual 3 times a day, prn cp as directed Feb Active Metoprolol Tartrate 100 MG Orally Twice a day 2 tablets 12h 30 Mar, 2015 30 day(s) Active Singulair 10 MG Orally Once a day 1 tablet in the evening 24h 30 Active Atrovent HFA 17 mcg/actuation 2 puffs 6h Jun, Active Acidophilus 100 mg Orally Once a day 1 tablet 24h Dec, Active Tramadol HCl 50 mg Orally every 6 hrs 1 tablet as needed 6h Aug, Active Aspirin EC 81 MG Orally Once a day 1 tablet 24h Active Benzonatate 100 mg Orally Three times a day 1 capsule as needed 8h 18 Aug, 2016 Active Prilosec OTC 20 mg Orally Once a day 1 tablet 24h Active Lasix 20 MG Orally Once a day 1 tablet 24h Active RESULTS No Results PROCEDURES No Known procedures INSTRUCTIONS MEDICATIONS ADMINISTERED No Known Medications MEDICAL (GENERAL) HISTORY Type Description Date Medical History COPD Medical History hypertension Surgical History sinus surgery 2013 Surgical History bladder cancer 2006 Surgical History angiogram 05/2014 Hospitalization History surgeries Hospitalization History hypertension 05/2014 Hospitalization History chest pain, hypertension 02/13/2016
--- OUTSIDE RECORDS SUMMARY | 2018-07-10 05:44 | XMS REPORT ---
Author Author JUDD LUCAS Organization [employer] Address Unknown Phone Unavailable Care Team Providers Care [employer] Director Name Role Phone JUDD LUCAS CP Unavailable Allergies No Known Allergies Problems [...]
--- OUTSIDE RECORDS SUMMARY | 2018-07-10 05:44 | XMS REPORT ---
Author Author LYNN JACOBO Organization [facility] Address [address] [place] [address] Care Team Providers Care Alteration Specialist Name Role Phone LYNN JACOBO Unavailable PROBLEMS Type Condition ICD9-CM Code RSM45-WX Code Onset Dates Condition Status SNOMED Code Problem Mood disorder F39 Active 65024384 Problem Hypertension, benign I10 Active 67120924 Problem Simple chronic bronchitis J41.0 Active 65414451 Problem History of elevated glucose Z86.39 Active Problem Chronic obstructive pulmonary disease, unspecified COPD type J44.9 Active 61556744 Problem Gastroesophageal reflux disease without esophagitis K21.9 Active 531644141 Problem Panlobular emphysema J43.1 Active 3693549 Problem Lumbago with sciatica, right side M54.41 Active [id number] ALLERGIES No Information ENCOUNTERS Encounter Location Date Diagnosis [place] [id number] [place] [address] 31396- 4509 May, [place] [id number] [place] [address] 14922- 9642 May, Chronic obstructive pulmonary disease, unspecified COPD type J44.9 [facility] [id number] [place] [address] 86572- 3192 May, Hypertension, benign I10 and Simple chronic bronchitis J41.0 [facility] [id number] [place] [address] 40276- 0895 Apr, [facility] [id number] [place] [address] 14055- 3777 Apr, Panlobular emphysema J43.1 [facility] [id number] [place] [address] 43600- 4486 Mar, Chronic obstructive pulmonary disease, unspecified COPD type J44.9 [place] [id number] [place] [address] 44695- 3786 Feb, Chronic obstructive pulmonary disease, unspecified COPD type J44.9 [facility] [id number] [place] [address] 82212- 3752 Dec, Chronic obstructive pulmonary disease, unspecified COPD type J44.9 [facility] [id number] [place] [address] 41175- 6193 Dec, [facility] [address] 27370- 1150 Dec, Mood disorder F39 ; Hypertension, benign I10 and Gastroesophageal reflux disease without esophagitis K21.9 [facility] [id number] [place] [address] [id number] Oct, Dental caries K02.9 [facility] [id number] [place] [address] [id number] September, Dental caries K02.9 [place] [id number] [place] [address] 55516- 5946 September, History of elevated glucose Z86.39 and Eustachian tube dysfunction, bilateral H69.83 [place] [id number] [place] [address] 25156- 4866 September, [place] [id number] [place] [address] 49869- 7125 September, Dental examination Z01.20 [place] [id number] [place] [address] 24753- 7388 Aug, [place] [id number] [place] [address] 52450- 9965 Aug, [place] [id number] [place] [address] 57656- 5286 Jun, [facility] [id number] [place] [address] 22480- 4479 Jun, Chronic obstructive pulmonary disease, unspecified COPD type J44.9 [facility] [id number] [address] 2195 Jun, [facility] [id number] [place] [address] 66916- 8251 Apr, [facility] [id number] [place] [address] 84462- 0409 Mar, Chronic obstructive pulmonary disease, unspecified COPD type J44.9 and Lumbago with sciatica, right side M54.41 [facility] [id number] [place] [address] 32296- 1746 Feb, [facility] [id number] [place] [address] 96389- 3931 Feb, [facility] [id number] [place] [address] 02233- 3120 Feb, [facility] [id number] [place] [address] 52175- 7496 Feb, Gastroesophageal reflux disease without esophagitis K21.9 [facility] [id number] [place] [address] 51015- 4748 Feb, [facility] [id number] [place] [address] 71001- 3479 Feb, [facility] [id number] [place] [address] 48754- 6939 Feb, Mood disorder F39 [facility] [id number] [place] [address] 09564- 6474 Jan, [facility] [id number] [place] [address] 77437- 5259 Jan, Chronic obstructive pulmonary disease, unspecified COPD type J44.9 and Essential hypertension I10 [facility] [id number] [place] [address] 47166- 4602 Nov, [facility] [id number] [place] [address] 07345- 1300 September, Chronic obstructive pulmonary disease, unspecified COPD type J44.9 and Edema, unspecified type R60.9 [facility] [id number] [place] [address] 12140- 8964 September, [facility] [address] 86347- 2632 September, [facility] [address] 26742- 0444 September, Other chest pain R07.89 [place] [address] 45424- 8866 Aug, Hypertension I10 [place] [address] 78050- 0620 Jul, Moderate persistent asthma without complication J45.40 [place] [address] 67318- 2442 Jun, COPD (chronic obstructive pulmonary disease) J44.9 [place] [address] 23096- 6216 Jun, COPD (chronic obstructive pulmonary disease) J44.9 [place] [id number] [place] [address] 35223- 3988 Jun, COPD (chronic obstructive pulmonary disease) J44.9 [place] [id number] [place] [address] 26488- 9413 May, [place] [id number] [place] [address] 05945- 2460 Mar, Other chest pain R07.89 [place] [address] 59138- 5150 Mar, [place] [id number] [place] [address] 09103- 8810 Feb, Hypertension, benign I10 ; Shortness of breath R06.02 and Edema of abdominal wall R60.0 [facility] [id number] [place] [address] 87202- 9701 Jan, [facility] [id number] [place] [address] 546461- 8518 Dec, Sinusitis 473.9 and Chronic airway obstruction, not elsewhere classified 496 [facility] [id number] [place] [address] 796406- 9938 Dec, [facility] [id number] [place] [address] 63887- 4312 Dec, [facility] [id number] [place] [address] 19559- 4322 Nov, [facility] [id number] [place] [address] [id number] September, Dental examination V72.2 [facility] [id number] [place] [address] 77621- 1772 September, [facility] [id number] [place] [address] 15952- 3042 Aug, [facility] [id number] [place] [address] 59420- 8697 Aug, [facility] [id number] [place] [address] 95837- 6162 Jul, [facility] [id number] [place] [address] 51925- 2539 Jun, [facility] [id number] [place] [address] 19939- 1236 Jun, [facility] [id number] [place] [address] 42089- 3242 Jun, [facility] [id number] [place] [address] 60511- 1575 Jun, [facility] [id number] [place] [address] 11350- 0869 Jun, 2014 [facility] [place] [facility] [address] [id number] [place] [address]- 1806 Jun, 2014 [facility] [place] [facility] [address] [id number] [place] [address]- 8946 Jun, 2014 [facility] [place] [facility] [address] [id number] [place] [address]- 6816 Jun, 2014 [facility] [place] [facility] [address] [id number] [place] [address]- 4705 Jun, 2014 [facility] [place] [facility] [address] [id number] [place] [address]- 5961 Jun, 2014 [facility] [place] [facility] [address] [id number] [place] [address]- 9236 Jun, [facility] [place] [facility] [address] [id number] [place] [address]- 9816 Jun, [facility] [place] [facility] [address] [id number] [place] [address]- 6531 May, [facility] [place] [facility] [address] [id number] [place] [address]- 6481 May, [facility] [place] [facility] [address] [facility] [id number] [place] [address]- 3753 May, [facility] [place] [facility] [address] [id number] [place] [address]- 9820 May, [facility] [place] [facility] [address] [id number] [address]- 5356 May, [facility] [place] [facility] [address] [id number] [place] [address]- 1860 May, [facility] [place] [facility] [address] [facility] [id number] [place] [address]- 7348 Apr, [facility] [place] [facility] [address] [id number] [place] [address]- 6731 Apr, [facility] [place] [facility] [address] [id number] [place] 8723 Apr, [facility] [place] [facility] [address] [id number] [place] [address]- 8978 Mar, [facility] [place] [facility] [address] [id number] [place] [address]- 2117 Mar, [facility] [place] [facility] [address] [id number] [place] [address]- 0044 Mar, [facility] [place] [facility] [address] [id number] [place] [address]- 6493 Mar, [facility] [place] [facility] [address] [id number] [place] [address]- 4546 Mar, [facility] [place] [facility] [address] [id number] [place] [address]- 4263 Mar, [facility] [place] [facility] [address] [id number] [place] [address]- 3519 Mar, [facility] [place] [facility] [address] [id number] [place] [address]- 7553 Mar, [facility] [place] [facility] [address] [id number] [place] [address]- 2350 Mar, [facility] [place] [facility] [address] [id number] [place] [address]- 8483 Mar, [facility] [place] [facility] [address] [id number] [address]- 8115 Feb, [facility] [place] [facility] [address] [id number] [place] [address]- 6718 Feb, [facility] [place] [facility] [address] [id number] [place] [address]- 5633 Feb, [facility] [place] [facility] [address] [id number] [place] 6739 Feb, [facility] [place] [facility] [address] [id number] [address]- 0382 Jan, [facility] [place] [facility] [address] [id number] [place] [address]- 7713 Jan, [facility] [place] [facility] [address] [id number] [place] [address]- 7410 Jan, [facility] [place] [facility] [address] [id number] [place] [address]- 1020 Jan, [facility] [place] [facility] [address] [id number] [place] [address]- 1428 Dec, [facility] [place] [facility] [address] [id number] [place] [address]- 2497 Dec, [facility] [place] [facility] [address] [id number] [place] [address]- 0663 Dec, [facility] [place] [facility] [address] [id number] [place] [address]- 0845 Dec, [facility] [place] [facility] [address] [id number] [place] [address]- 6680 Dec, [facility] [place] [facility] [address] [id number] [place] [address]- 7794 Dec, [facility] [place] [facility] [address] [id number] [place] [address]- 0992 Nov, [facility] [place] [facility] [address] [id number] [place] [address]- 1909 Nov, [facility] [place] [facility] [address] [id number] [place] [address]- 3304 Nov, [facility] [place] [facility] [address] [id number] [place] [address]- 2832 Nov, [facility] [place] [facility] [address] [id number] [place] [address]- 4881 September, [facility] [place] [facility] [address] [id number] [place] [address]- 0091 September, [facility] [place] [facility] [address] [id number] [place] [address]- 5770 Jul, [facility] [place] [facility] [address] [id number] [place] [address]- 3848 Jul, [facility] [place] [facility] [address] [id number] [place] [address]- 2093 Jul, [facility] [place] [facility] [address] [id number] [place] [address]- 0891 Jul, [facility] [place] [facility] [address] [id number] [place] [address]- 0909 Jun, [facility] [place] [facility] [address] [id number] [place] [address]- 5130 Jun, [facility] [place] [facility] [address] [facility] [id number] [place] [address]- 6664 Jun, [facility] [place] [facility] [address] [facility] [id number] [place] [address]- 2311 Jun, [facility] [place] [facility] [address] [id number] [place] [address]- 1412 Jun, [facility] [place] [facility] [address] [facility] [id number] [place] [address]- 8721 Jun, [facility] [place] [facility] [address] [facility] [id number] [place] [address]- 5277 Jun, [facility] [place] [facility] [address] [facility] [id number] [place] [address]- 7607 Jun, [facility] [place] [facility] [address] [facility] [id number] [place] [address]- 5382 Jun, [facility] [place] [facility] [address] [id number] [place] [address]- 5250 Jun, [facility] [place] [facility] [address] [facility] [id number] [place] [address]- 5042 May, [facility] [place] [facility] [address] [facility] [id number] [address]- 9666 May, [facility] [address] [id number] [place] [address]- 2861 Apr, [facility] [place] [facility] [address] [id number] [place] [address]- 1829 Apr, [facility] [place] [facility] [address] [id number] [place] [address]- 7700 Apr, [facility] [place] [facility] [address] [id number] [place] [address]- 0102 Apr, [facility] [address] [id number] [place] [address]- 7753 Apr, [facility] [place] [facility] [address] [id number] [place] [address]- 4245 Apr, [facility] [address] [facility] [id number] [place] [address]- 0005 Mar, [facility] [place] [facility] [address] [id number] [place] [address]- 8588 Mar, [facility] [place] [facility] [address] [facility] [id number] [place] [address]- 2101 Feb, [facility] [place] [facility] [address] [facility] [id number] [place] [address]- 9136 Jan, [facility] [place] [facility] [address] [id number] [place] [address]- 1093 Jan, [facility] [place] [facility] [address] [id number] [place] [address]- 6212 Dec, [facility] [place] [facility] [address] [id number] [place] [address]- 6175 Dec, [facility] [place] [facility] [address] [id number] [place] [address]- 4575 Nov, [facility] [place] [facility] [address] [facility] [id number] [place] [address]- 3396 Nov, [facility] [place] [facility] [address] [id number] [place] [address]- 5198 Oct, [facility] [address] [id number] [place] [address]- 3853 September, [facility] [place] [facility] [address] [id number] [place] [address]- 8679 September, [facility] [address] [id number] [place] [address]- 8217 Aug, [facility] [place] [facility] [address] [id number] [place] [address]- 4681 Aug, [facility] [address] [id number] [place] [address]- 8838 Aug, [facility] [place] [facility] [address] [id number] [place] [address]- 1699 Aug, [facility] [address] [id number] [place] [address]- 3662 Aug, [facility] [address] [id number] [place] [address]- 2625 Jun, [facility] [address] [id number] [place] [address]- 7180 Jun, [facility] [address] [id number] [place] [address]- 9398 Jun, [facility] [address] [id number] [place] [address]- 6368 May, [facility] [place] [facility] [address] [id number] [place] [address]- 6058 May, [facility] [place] [facility] [address] [id number] [place] [address]- 0086 Apr, [facility] [place] [facility] [address] [id number] [place] [address]- 7693 Mar, [facility] [place] [facility] [address] [id number] [place] [address]- 0628 Mar, [facility] [place] [facility] [address] [id number] [place] [address]- 8668 Mar, [facility] [place] [facility] [address] [id number] [place] [address]- 4516 Mar, [facility] [place] [facility] [address] [id number] [place] [address]- 1136 Mar, [facility] [place] [facility] [address] [id number] [place] [address]- 4898 Mar, [facility] [place] [facility] [address] [id number] [place] [address]- 7530 Mar, [facility] [place] [facility] [address] [id number] [place] [address]- 1852 Mar, [facility] [place] [facility] [address] [id number] [place] [address]- 6668 Feb, [facility] [place] [facility] [address] [id number] [place] [address]- 3576 Feb, [facility] [place] [facility] [address] [id number] [place] [address]- 1033 Feb, [facility] [place] [facility] [address] [id number] [place] [address]- 2154 Feb, [facility] [place] [facility] [address] [id number] [address]- 9458 Dec, [facility] [place] [facility] [address] [id number] [place] [address]- 1421 Nov, [facility] [place] [facility] [address] [id number] [place] [address]- 4872 Nov, [facility] [place] [facility] [address] [id number] [place] [address]- 7579 Nov, [facility] [place] [facility] [address] [id number] [place] [address]- 0169 Nov, [facility] [place] [facility] [address] [facility] [id number] [place] [address]- 9595 Nov, [facility] [address] [facility] [id number] [place] [address]- 2533 Nov, IMMUNIZATIONS No Known Immunizations SOCIAL HISTORY [...] 12h 11 Jun, 2014 90 days Active RESULTS No [...]
--- OUTSIDE RECORDS SUMMARY | 2018-07-10 05:44 | XMS REPORT ---
Author LYNN Solares [facility] [employer] Address Unknown Phone Unavailable Care Team Providers Care Family Engagement Specialist Name Role Phone LYNN JACOBO CP Unavailable [...] Active Problem Acute bronchitis 466.0 Active Assessment Hypertension I10 Active Problem Other abnormal glucose 790.29 Active Problem Chronic airway obstruction, not elsewhere classified 496 Active Medications Medication Code System Code Instructions Start Date End Date Status Dosage Ventolin HFA [facility] [address]-36 108 (90 Base) MCG/ACT Inhalation every 4 hrs Dec 11, 2014 2 puffs as needed Nasonex [facility] [address]-08 50 mcg/actuation Jun 18, 2014 1 sprays by Nasal route 2 times per day in each nostril Norvasc [facility] [address]-14 5 mg Jul 06, 2014 1 tablet by Oral route 1 time per day Albuterol Sulfate [facility] 84124484473 (2.5 MG/3ML) 0.083% USE ONE VIAL PER NEBULIZER FOUR TIMES DAILY NEEDED Tramadol HCl [facility] [address]-81 50 mg Orally every 6 hrs August 23, 2015 1 tablet as needed Metoprolol Tartrate [facility] [address]-92 50 MG Orally Twice a day Apr 08, 2015 1 tablet Loratadine [facility] [address]-49 10 mg Dec 13, 2013 take 1 tablet by Oral route 1 time per day take at hs Atrovent HFA [facility] [address]-65 17 mcg/actuation Four times a day Jun 22, 2014 2 puffs Flonase [facility] [address]-22 50 MCG/ACT Nasally Once a day Dec 24, 2014 1 spray in each nostril Amlodipine Besylate [facility] [address]-95 10 MG Orally Once a day 1 tablet Tudorza Pressair [facility] [address]-85 400 mcg/actuation Inhalation Twice a day Jun 22, 2014 1 puff Lasix [facility] [address]-01 20 MG Orally Once a day 1 tablet Singulair [facility] [address]-33 10 MG Orally Once a day July 24, 2015 1 tablet in the evening Advair Diskus [facility] [address]-04 250-50 MCG/DOSE Twice a day Jun 20, 2014 1 puff Procedures Procedure Coding System Code Date Office Visit, Est Pt., Level 3 CPT-4 63479 August 23, 2015 Vital Signs Date/Time: August 23, 2015 Temperature 97.7 F Weight 346.2 lbs Height 75 in BMI 43.27 Index Blood Pressure Diastolic 82 mmHg Blood Pressure Systolic 148 mmHg Cardiac Monitoring Heart Rate 88 bpm Results No Known Results Summary Purpose eClinicalWorks Submission
--- OUTSIDE RECORDS SUMMARY | 2018-07-10 05:44 | XMS REPORT ---
Author Author LYNN JACOBO Organization [facility] Address [address] [place] [address] Care Team Providers Care Academic Advisement Director Name Role Phone LYNN JACOBO Unavailable PROBLEMS Type Condition ICD9-CM Code EYT14-EC Code Onset Dates Condition Status SNOMED Code Problem Mood disorder F39 Active 17203823 Problem Hypertension, benign I10 Active 41107597 Problem Simple chronic bronchitis J41.0 Active 09243245 Problem History of elevated glucose Z86.39 Active Problem Chronic obstructive pulmonary disease, unspecified COPD type J44.9 Active 87724970 Problem Gastroesophageal reflux disease without esophagitis K21.9 Active 830679126 Problem Panlobular emphysema J43.1 Active 6815427 Problem Lumbago with sciatica, right side M54.41 Active 295698281 ALLERGIES Substance Reaction Event Type Date Status Hydrochlorothiazide nausea Drug Allergy Apr, Active ENCOUNTERS Encounter Location Date Diagnosis [facility] [id number] [place] [address] 07141- 6732 May, [facility] [id number] [place] [address] 72906- 8576 May, Chronic obstructive pulmonary disease, unspecified COPD type J44.9 [facility] [id number] [place] [address] 89302- 1332 May, Hypertension, benign I10 and Simple chronic bronchitis J41.0 [facility] [id number] [place] [address] 32534- 5315 Apr, [facility] [address] 24328- 4570 Apr, Panlobular emphysema J43.1 [facility] [id number] [place] [address] 69844- 6753 Mar, Chronic obstructive pulmonary disease, unspecified COPD type J44.9 [facility] [id number] [place] [address] 93459- 3022 Feb, Chronic obstructive pulmonary disease, unspecified COPD type J44.9 [facility] [id number] [place] [address] 10593- 7824 Dec, Chronic obstructive pulmonary disease, unspecified COPD type J44.9 [facility] [address] 98075- 3296 Dec, [facility] [id number] [place] [address] 37273- 7327 Dec, Mood disorder F39 ; Hypertension, benign I10 and Gastroesophageal reflux disease without esophagitis K21.9 [facility] [id number] [place] [address] [id number] Oct, Dental caries K02.9 [facility] [id number] [place] [address] [id number] September, Dental caries K02.9 [facility] [id number] [place] [address] 69008- 8427 September, History of elevated glucose Z86.39 and Eustachian tube dysfunction, bilateral H69.83 [facility] [id number] [place] [address] 91485- 6487 September, [facility] [id number] [place] [address] 41666- 4103 September, Dental examination Z01.20 [facility] [id number] [place] [address] 51018- 5981 Aug, [facility] [id number] [place] [address] 89817- 8783 Aug, [facility] [id number] [place] [address] 98059- 3350 Jun, [facility] [id number] [place] [address] 60156- 9128 Jun, Chronic obstructive pulmonary disease, unspecified COPD type J44.9 [facility] [id number] [place] [address] 93947- 1828 Jun, [facility] [id number] [place] [address] 56797- 0653 Apr, [facility] [id number] [place] [address] 85419- 0795 Mar, Chronic obstructive pulmonary disease, unspecified COPD type J44.9 and Lumbago with sciatica, right side M54.41 [facility] [id number] [place] [address] 13597- 8161 Feb, [facility] [id number] [place] [address] 96190- 9455 Feb, [facility] [id number] [place] [address] 86770- 6637 Feb, [facility] [id number] [place] [address] 50343- 4538 Feb, Gastroesophageal reflux disease without esophagitis K21.9 [facility] [id number] [place] [address] 77149- 5934 Feb, [facility] [id number] [place] [address] 30785- 3732 Feb, [facility] [id number] [place] [address] 49474- 7150 Feb, Mood disorder F39 [facility] [id number] [place] [address] 37954- 8021 Jan, [facility] [id number] [place] [address] 30795- 1690 Jan, Chronic obstructive pulmonary disease, unspecified COPD type J44.9 and Essential hypertension I10 [facility] [id number] [place] [address] 93690- 2302 Nov, [facility] [id number] [place] [address] 61926- 1159 September, Chronic obstructive pulmonary disease, unspecified COPD type J44.9 and Edema, unspecified type R60.9 [facility] [id number] [place] [address] 00453- 8182 September, [facility] [address] 30167- 9907 September, [facility] [id number] [place] [address] 04884- 6742 September, Other chest pain R07.89 [place] [place] [address] 27379- 8240 Aug, Hypertension I10 [place] [id number] [place] [address] 83538- 4425 Jul, Moderate persistent asthma without complication J45.40 [place] [id number] [place] [address] 32893- 4929 Jun, COPD (chronic obstructive pulmonary disease) J44.9 [place] [address] 51642- 2545 Jun, COPD (chronic obstructive pulmonary disease) J44.9 [facility] [id number] [place] [address] 72062- 7884 Jun, COPD (chronic obstructive pulmonary disease) J44.9 [facility] [id number] [place] [address] 31239- 9088 May, [place] [address] 49068- 1689 Mar, Other chest pain R07.89 [facility] [id number] [place] [address] 10955- 0819 Mar, [facility] [id number] [place] [address] 57825- 3782 Feb, Hypertension, benign I10 ; Shortness of breath R06.02 and Edema of abdominal wall R60.0 [facility] [id number] [place] [address] 45516- 3488 Jan, [facility] [address] 28410- 0326 Dec, Sinusitis 473.9 and Chronic airway obstruction, not elsewhere classified 496 [facility] [address] 03082- 3435 Dec, [facility] [address] 03568- 9177 Dec, [facility] [address] 83151- 6209 Nov, [facility] [address] [id number] September, Dental examination V72.2 [facility] [address] 10411- 3316 September, [facility] [id number] [place] [address] 28080- 4077 Aug, [facility] [id number] [place] [address] 59560- 2375 Aug, [facility] [id number] [place] [address] 36529- 7967 Jul, [facility] [id number] [place] [address] 47826- 7395 Jun, [facility] [id number] [place] [address] 55959- 1061 Jun, [facility] [id number] [place] [address] 41639- 6948 Jun, [facility] [id number] [place] [address] 41744- 8804 Jun, [facility] [place] [facility] [address] [id number] [place] [address]- 2610 13 Jun, 2014 [facility] [place] [facility] [address] [id number] [place] [address]- 8536 Jun, 2014 [facility] [place] [facility] [address] [id number] [place] [address]- 6246 Jun, 2014 [facility] [place] [facility] [address] [id number] [place] [address]- 4758 Jun, 2014 [facility] [place] [facility] [address] [id number] [place] [address]- 2092 Jun, 2014 [facility] [place] [facility] [address] [id number] [place] [address]- 8822 Jun, 2014 [facility] [place] [facility] [address] [facility] [id number] [place] [address]- 3335 Jun, 2014 [facility] [place] [facility] [address] [id number] [place] [address]- 7433 Jun, [facility] [place] [facility] [address] [id number] [place] [address]- 3803 May, [facility] [place] [facility] [address] [facility] [id number], [place] [address]- 6143 May, [facility] [place] [facility] [address] [facility] [id number], [place] [address]- 9660 May, [facility] [place] [facility] [address] [id number], [place] [address]- 5015 May, [facility] [place] [facility] [address] [id number], [place] [address]- 1745 May, [facility] [place] [facility] [address] [id number], [place] [address]- 6987 May, [facility] [place] [facility] [address] [facility] [id number], [place] [address]- 3806 Apr, [facility] [place] [facility] [address] [id number], [place] [address]- 3380 Apr, [facility] [place] [facility] [address] [id number] [place] [address]- 5336 Apr, [facility] [place] [facility] [address] [facility] [id number], [place] [address]- 5476 Mar, [facility] [place] [facility] [address] [facility] [id number] [place] [address]- 5125 Mar, [facility] [place] [facility] [address] [id number], [place] [address]- 1291 Mar, [facility] [place] [facility] [address] [facility] [id number] [place] [address]- 3744 Mar, [facility] [place] [facility] [address] [facility] [id number], [place] [address]- 1582 Mar, [facility] [place] [facility] [address] [facility] [id number], [place] [address]- 7114 Mar, [facility] [place] [facility] [address] [facility] [id number], [place] [address]- 2773 Mar, [facility] [place] [facility] [address] [facility] [id number], [place] [address]- 7393 Mar, [facility] [place] [facility] [address] [facility] [id number], [place] [address]- 2999 Mar, [facility] [place] [facility] [address] [facility] [id number], [place] [address]- 7327 Mar, [facility] [place] [facility] [address] [facility] [id number], [place] [address]- 3954 Feb, [facility] [place] [facility] [address] [id number], [place] [address]- 0031 Feb, [facility] [place] [facility] [address] [facility] [id number], [place] [address]- 6698 Feb, [facility] [place] [facility] [address] [facility] [id number], [place] [address]- 8297 Feb, [facility] [place] [facility] [address] [id number] [place] [address]- 6232 Jan, [facility] [place] [facility] [address] [id number] [place] [address]- 2433 Jan, [facility] [place] [facility] [address] [id number] [place] [address]- 7630 Jan, [facility] [place] [facility] [address] [id number] [place] [address]- 0085 Jan, [facility] [place] [facility] [address] [id number] [place] [address]- 8269 Dec, [facility] [place] [facility] [address] [id number] [place] [address]- 7195 Dec, [facility] [place] [facility] [address] [id number] [place] [address]- 0575 Dec, [facility] [place] [facility] [address] [id number] [place] [address]- 6783 Dec, [facility] [place] [facility] [address] [id number] [place] [address]- 4666 Dec, [facility] [place] [facility] [address] [id number] [place] [address]- 2971 Dec, [facility] [place] [facility] [address] [id number] [place] [address]- 4919 Nov, [facility] [place] [facility] [address] [id number] [place] [address]- 6499 Nov, [facility] [place] [facility] [address] [id number] [place] [address]- 5506 Nov, [facility] [place] [facility] [address] [id number] [place] [address]- 4093 Nov, [facility] [place] [facility] [address] [id number] [place] [address]- 0893 September, [facility] [place] [facility] [address] [id number] [place] [address]- 4003 September, [facility] [place] [facility] [address] [id number] [place] [address]- 3372 Jul, [facility] [place] [facility] [address] [id number] [place] [address]- 2204 Jul, [facility] [place] [facility] [address] [facility] [id number] [place] [address]- 4665 Jul, [facility] [place] [facility] [address] [id number] [place] [address]- 6312 Jul, [facility] [place] [facility] [address] [id number] [place] [address]- 8471 Jun, [facility] [place] [facility] [address] [id number] [place] [address]- 7660 Jun, [facility] [place] [facility] [address] [facility] [id number] [place] [address]- 8916 Jun, [facility] [place] [facility] [address] [id number] [place] [address]- 0137 Jun, [facility] [place] [facility] [address] [id number] [place] [address]- 0326 Jun, [facility] [place] [facility] [address] [facility] [id number] [place] [address]- 5713 Jun, [facility] [place] [facility] [address] [facility] [id number] [place] [address]- 1235 Jun, [facility] [place] [facility] [address] [facility] [id number] [place] [address]- 5078 Jun, [facility] [place] [facility] [address] [facility] [id number] [place] [address]- 3291 Jun, [facility] [place] [facility] [address] [facility] [id number] [place] [address]- 3614 Jun, [facility] [place] [facility] [address] [facility] [id number] [place] [address]- 5540 May, [facility] [place] [facility] [address] [id number] [place] [address]- 7545 May, [facility] [place] [facility] [address] [id number] [place] [address]- 3464 Apr, [facility] [place] [facility] [address] [id number] [place] [address]- 2264 Apr, [facility] [place] [facility] [address] [id number] [place] [address]- 8617 Apr, [facility] [place] [facility] [address] [id number] [place] [address]- 4318 Apr, [facility] [place] [facility] [address] [id number] [place] [address]- 4936 Apr, [facility] [place] [facility] [address] [id number] [place] [address]- 8728 Apr, [facility] [place] [facility] [address] [id number] [place] [address]- 9844 Mar, [facility] [place] [facility] [address] [id number] [place] [address]- 0476 Mar, [facility] [place] [facility] [address] [id number] [place] [address]- 7801 Feb, [facility] [place] [facility] [address] [id number] [place] [address]- 6383 Jan, [facility] [place] [facility] [address] [id number] [place] [address]- 6759 Jan, [facility] [place] [facility] [address] [id number] [place] [address]- 3410 Dec, [facility] [place] [facility] [address] [id number] [place] [address]- 8590 Dec, [facility] [place] [facility] [address] [id number] [place] [address]- 5685 Nov, [facility] [place] [facility] [address] [id number] [place] [address]- 0145 Nov, [facility] [place] [facility] [address] [id number] [place] [address]- 2412 Oct, [facility] [place] [facility] [address] [id number] [place] [address]- 0286 September, [facility] [place] [facility] [address] [id number] [place] [address]- 1194 September, [facility] [place] [facility] [address] [id number] [place] [address]- 1935 Aug, [facility] [place] [facility] [address] [id number] [place] [address]- 8936 Aug, [facility] [place] [facility] [address] [id number] [place] [address]- 2133 Aug, [facility] [place] [facility] [address] [id number] [place] [address]- 8077 Aug, [facility] [place] [facility] [address] [id number] [place] [address]- 3038 Aug, [facility] [place] [facility] [address] [id number] [place] [address]- 0396 Jun, [facility] [place] [facility] [address] [id number] [place] [address]- 0238 Jun, [facility] [place] [facility] [address] [id number] [place] [address]- 3918 Jun, [facility] [place] [facility] [address] [id number] [place] [address]- 0071 May, [facility] [place] [facility] [address] [id number] [place] [address]- 8498 May, [facility] [place] [facility] [address] [id number] [place] [address]- 9294 Apr, [facility] [place] [facility] [address] [id number] [place] [address]- 4661 Mar, [facility] [place] [facility] [address] [id number] [place] [address]- 6163 Mar, [facility] [place] [facility] [address] [id number] [place] [address]- 1443 Mar, [facility] [place] [facility] [address] [id number] [place] [address]- 3956 Mar, [facility] [place] [facility] [address] [id number] [place] [address]- 6146 Mar, [facility] [place] [facility] [address] [id number] [place] [address]- 1626 Mar, [facility] [place] [facility] [address] [id number] [place] [address]- 6541 Mar, [facility] [place] [facility] [address] [id number] [place] [address]- 8986 Mar, [facility] [place] [facility] [address] [id number] [place] [address]- 1342 Feb, [facility] [place] [facility] [address] [id number] [place] [address]- 1948 Feb, [facility] [place] [facility] [address] [id number] [place] [address]- 7673 Feb, [facility] [place] [facility] [address] [id number] [place] [address]- 1086 Feb, [facility] [place] [facility] [address] [id number] [place] [address]- 2795 Dec, [facility] [place] [facility] [address] [id number] [place] [address]- 4437 Nov, [facility] [place] [facility] [address] [id number] [place] [address]- 1815 Nov, [facility] [place] [facility] [address] [id number] [place] [address] 2546 Nov, [facility] [place] [facility] [address] [id number] [place] [address]- 8372 Nov, [facility] [address] [facility] [id number] [place] [address]- 1258 Nov, [facility] [address] [facility] [id number] [place] [address]- 0606 Nov, IMMUNIZATIONS No Known Immunizations SOCIAL HISTORY Never Assessed REASON FOR VISIT Blood Pressure- Nathalie Blanco RN PLAN OF CARE VITAL SIGNS Height 75 in 2017-04-12 Weight 296 lbs 2017-04-12 Temperature 97.0 degrees Fahrenheit 2017-04-12 Heart Rate 82 bpm 2017-04-12 Respiratory Rate 26 2017-04-12 BMI 36.99 kg/m2 2017-04-12 Blood pressure systolic 142 mmHg 2017-04-12 Blood pressure diastolic 90 mmHg 2017-04-12 MEDICATIONS Medication Instructions Dosage Frequency Start Date End Date Duration Status Benzonatate 100 mg Orally Three times a day 1 capsule as needed 8h Apr, Active Flonase 50 MCG/ACT Nasally Once a day 1 spray in each nostril 24h Dec, Active Nitroglycerin 0.4 MG Sublingual 3 times a day, prn cp as directed Feb Active Tramadol HCl 50 mg Orally every 6 hrs 1 tablet as needed 6h 15 Aug, 2015 Active Ventolin HFA 108 (90 Base) MCG/ACT Inhalation 4 times a day 2 puffs as needed 6h Active Tudorza Pressair 400 mcg/act Inhalation Twice a day 1 puff 12h Jun, 30 days Active Protonix 40 mg Orally Once a day 1 tablet 24h 30 Active [employer] Tubing as directed Aug, Active Amlodipine Besylate 10 MG Orally Once a day 1 tablet 24h 30 Active Atrovent HFA 17 mcg/actuation Inhalation Four times a day 2 puffs 6h Jun 90 days Active Advair Diskus 250-50 MCG/DOSE 1 puff 12h Jun, Active Benzonatate 100 mg Orally Three times a day 1 capsule as needed 8h Aug, Not-Taking PredniSONE 20 mg Orally Once a day 2 tablets 24h Apr, Apr, 05 days Active Acidophilus 100 mg Orally Once a day 1 tablet 24h Dec, Active Aspirin EC 81 MG Orally Once a day 1 tablet 24h Active Singulair 10 MG Orally Once a day 1 tablet in the evening 24h 30 Active RESULTS No Results PROCEDURES No Known procedures INSTRUCTIONS MEDICATIONS ADMINISTERED No Known Medications MEDICAL (GENERAL) HISTORY Type Description Date Medical History COPD Medical History hypertension Surgical History sinus surgery 2013 Surgical History bladder cancer 2006 Surgical History angiogram 05/2014 Hospitalization History surgeries Hospitalization History hypertension 05/2014 Hospitalization History chest pain, hypertension 02/13/2016
--- OUTSIDE RECORDS SUMMARY | 2018-07-10 05:45 | XMS REPORT ---
Author Author LYNN JACOBO Organization [employer] Address Unknown Phone Unavailable Care Team Providers Care Sales Representative Groceries Name Role Phone LYNN JACOBO CP Unavailable [...] Active Problem Acute bronchitis 466.0 Active Medications Medication Code System Code Instructions Start Date End Date Status Dosage Metoprolol Tartrate [facility] [address]-27 50 mg Orally Twice a day Apr 08, 2015 1 tablet Results No Known Results Summary Purpose [employer] Submission
--- OUTSIDE RECORDS SUMMARY | 2018-07-10 05:45 | XMS REPORT ---
Author Author LYNN JACOBO [facility] Address [address] [place] [address] Care Team Providers Care Coater [employer] Name Role Phone LYNN JACOBO Unavailable PROBLEMS Type Condition ICD9-CM Code PHR80-NP Code Onset Dates Condition Status SNOMED Code Problem Obesity, unspecified 278.00 Active 864697627 Problem Cough 786.2 Active 04089273 Problem Pneumonia, organism unspecified 486 Active 036671003 Problem Other abnormal glucose 790.29 Active 407693987 Problem Chronic airway obstruction, not elsewhere classified 496 Active 25022168 Problem Need for prophylactic vaccination and inoculation, Influenza V04.81 Active 348746496 Problem Pain in soft tissues of limb 729.5 Active 97119690 Problem Mood disorder F39 Active 99083709 Problem Hypertension, benign I10 Active 47551722 Problem Allergic rhinitis, cause unspecified 477.9 Active 11176139 Problem Acute bronchitis 466.0 Active 28512359 Problem Unspecified hypertrophic and atrophic condition of skin 701.9 Active 048857846 Problem Acute upper respiratory infections of unspecified site 465.9 Active 52650931 ALLERGIES Unknown Allergies SOCIAL HISTORY No smoking Hx information available PLAN OF CARE VITAL SIGNS MEDICATIONS Unknown Medications RESULTS No Results PROCEDURES No Known procedures IMMUNIZATIONS No Known Immunizations
--- OUTSIDE RECORDS SUMMARY | 2018-07-10 05:45 | XMS REPORT ---
Author Author LYNN JACOBO Organization [facility] Address [address] [place] [address] Care Team Providers Care Third Cook Name Role Phone LYNN JACOBO Unavailable PROBLEMS Type Condition ICD9-CM Code [id number]-RT Code Onset Dates Condition Status SNOMED Code Problem Hypertension, benign I10 Active 81739084 Problem History of elevated glucose Z86.39 Active Problem Panlobular emphysema J43.1 Active 8427674 Problem Gastroesophageal reflux disease without esophagitis K21.9 Active 200481181 Problem Mood disorder F39 Active 57784837 Problem Lumbago with sciatica, right side M54.41 Active 354203907 Problem Chronic obstructive pulmonary disease, unspecified COPD type J44.9 Active 68141656 ALLERGIES Unknown Allergies SOCIAL HISTORY No smoking Hx information available PLAN OF CARE VITAL SIGNS MEDICATIONS Medication Instructions Dosage Frequency Start Date End Date Duration Status Ventolin HFA 108 (90 Base) MCG/ACT Inhalation 4 times a day 2 puffs as needed 6h Active RESULTS No Results PROCEDURES No Known procedures IMMUNIZATIONS No Known Immunizations
--- OUTSIDE RECORDS SUMMARY | 2018-07-10 05:45 | XMS REPORT ---
Author LYNN Solares [facility] eClinicalWorks Address Unknown Phone Unavailable Care Team Providers Care Brick Dropper Name Role Phone LYNN JACOBO CP Unavailable [...] prophylactic vaccination and inoculation, Influenza V04.81 Active Assessment Gastroesophageal reflux disease without esophagitis K21.9 Active Problem Pain in soft tissues of limb 729.5 Active Medications Medication Code System Code Instructions Start Date End Date Status Dosage Metoprolol Tartrate [facility] [address]-18 100 MG Orally Twice a day Apr 08, [address] [facility] [address]-42 40 mg Orally Once a day Feb 17, [address] [facility] [address]-24 10 mg Dec 13, 2013 take 1 tablet by Oral route 1 time per day take at hs Aspirin EC [facility] [address]-09 81 MG Orally Once a day [address] [facility] [address]-44 17 mcg/actuation Four times a day Jun 22, [address] [facility] 33125823714 (2.5 MG/3ML) 0.083% USE ONE VIAL PER NEBULIZER FOUR TIMES DAILY NEEDED Nitroglycerin [facility] [address]-54 0.4 MG Sublingual 3 times a day, prn cp Feb 17, 2016 as directed Amlodipine Besylate [facility] 74738762104 10 MG Orally Once a day [address] [facility] [address]-16 108 (90 Base) MCG/ACT Inhalation 4 times a day 2 puffs as needed Tudorza Pressair [facility] [address]-25 400 mcg/actuation Inhalation Twice a day Jun 22, [address] [facility] 45208-02369 20 mg Orally Once a day 1 tablet Procedures Procedure Coding System Code Date IMMUNOASSAY,INFECTIOUS AGENT CPT-4 64459 Feb 17, 2016 Office Visit, Est Pt., Level 3 CPT-4 58310 Feb 17, 2016 Vital Signs Date/Time: Feb 17, 2016 Cardiac Monitoring Heart Rate 80 bpm Weight 323.5 lbs Height 75 in BMI 40.43 Index Blood Pressure Diastolic 104 mmHg Blood Pressure Systolic 150 mmHg Results Name Result Date Reference Range Unit Abnormality Flag H PYLORI (IN HOUSE) ----H. PYLORI Negative [id number] ----Control + [id number] ----Lot # [id number] ----Exp date [id number] Summary Purpose eClinicalWorks Submission
--- OUTSIDE RECORDS SUMMARY | 2018-07-10 05:45 | XMS REPORT ---
Author Author LYNN JACOBO Organization [facility] Address [address] [place] [address] Care Team Providers Care Inseamer Name Role Phone LYNN JACOBO Unavailable PROBLEMS Type Condition ICD9-CM Code KTP79-DS Code Onset Dates Condition Status SNOMED Code Problem Hypertension, benign I10 Active 81605556 Problem History of elevated glucose Z86.39 Active Problem Panlobular emphysema J43.1 Active 7129650 Problem Gastroesophageal reflux disease without esophagitis K21.9 Active 288316086 Problem Mood disorder F39 Active 38661272 Problem Lumbago with sciatica, right side M54.41 Active 285233264 Problem Chronic obstructive pulmonary disease, unspecified COPD type J44.9 Active 75619413 ALLERGIES No Information SOCIAL HISTORY Never Assessed PLAN OF CARE VITAL SIGNS MEDICATIONS Medication Instructions Dosage Frequency Start Date End Date Duration Status Ventolin HFA 108 (90 Base) MCG/ACT Inhalation 4 times a day 2 puffs as needed 6h Active Advair Diskus 250-50 MCG/DOSE 1 puff 12h 11 Jun, 2014 Active RESULTS No Results PROCEDURES No Known procedures IMMUNIZATIONS No Known Immunizations MEDICAL (GENERAL) HISTORY Type Description Date Medical History COPD Medical History hypertension Surgical History sinus surgery 2013 Surgical History bladder cancer 2007 Surgical History angiogram 05/2014 Hospitalization History surgeries Hospitalization History hypertension 05/2014 Hospitalization History chest pain, hypertension 02/13/2016
--- OUTSIDE RECORDS SUMMARY | 2018-07-10 05:45 | XMS REPORT ---
Author Author LYNN JACOBO [facility] Address [address] [place] [address] Care Team Providers Care Manager Electronic Name Role Phone LYNN JACOBO Unavailable PROBLEMS Type Condition ICD9-CM Code NCB21-UD Code Onset Dates Condition Status SNOMED Code Problem Hypertension, benign I10 Active 48479511 Problem History of elevated glucose Z86.39 Active Problem Panlobular emphysema J43.1 Active 8128752 Problem Gastroesophageal reflux disease without esophagitis K21.9 Active 093990458 Problem Mood disorder F39 Active 07725852 Problem Lumbago with sciatica, right side M54.41 Active 963628712 Problem Chronic obstructive pulmonary disease, unspecified COPD type J44.9 Active 09990105 ALLERGIES Substance Reaction Event Type Date Status Hydrochlorothiazide nausea Drug Allergy Jun, Active SOCIAL HISTORY Never Assessed PLAN OF CARE VITAL SIGNS Height 75 in 2016-06-15 Weight 324.0 lbs 2016-06-15 Temperature 98.0 degrees Fahrenheit 2016-06-15 Heart Rate 82 bpm 2016-06-15 Respiratory Rate 22 2016-06-15 BMI 40.49 kg/m2 2016-06-15 Blood pressure systolic 142 mmHg 2016-06-15 Blood pressure diastolic 90 mmHg 2016-06-15 MEDICATIONS Medication Instructions Dosage Frequency Start Date End Date Duration Status Tessalon Perles 100 mg Orally Three times a day 1 capsule as needed 8h Jun, Active Prilosec OTC 20 mg Orally Once a day 1 tablet 24h Active Loratadine 10 mg take 1 tablet by Oral route 1 time per day take at hs Dec, Active Tudorza Pressair 400 mcg/actuation Inhalation Twice a day 1 puff 12h Jun Active Nitroglycerin 0.4 MG Sublingual 3 times a day, prn cp as directed Feb Active Ventolin HFA 108 (90 Base) MCG/ACT Inhalation 4 times a day 2 puffs as needed 6h Active Albuterol Sulfate (2.5 MG/3ML) 0.083% USE ONE VIAL PER NEBULIZER FOUR TIMES DAILY NEEDED 12 Active Omeprazole 40 MG Orally Once a day 1 capsule 24h 06 Jun, 2016 30 day(s ) Active Amlodipine Besylate 10 MG Orally Once a day 1 tablet 24h 30 Active Aspirin EC 81 MG Orally Once a day 1 tablet 24h Active Tramadol HCl 50 mg Orally every 6 hrs 1 tablet as needed 6h 15 Aug, 2015 Active Atrovent HFA 17 mcg/actuation 2 puffs 6h 13 Jun, 2014 Active Protonix 40 mg Orally Once a day 1 tablet 24h 10 Feb, 2016 30 day(s) Active Advair Diskus 250-50 MCG/DOSE [...]
--- OUTSIDE RECORDS SUMMARY | 2018-07-10 05:45 | XMS REPORT ---
Author LYNN Solares [facility] eClinicalWorks Address Unknown Phone Unavailable Care Team Providers Care Gambling Supervisor Name Role Phone LYNN JACOBO CP Unavailable Allergies, Adverse Reactions, Alerts Substance Reaction Event Type N.K.D.A. Info Not Available Non Drug Allergy Problems Problem Type Condition Code [...] Active Problem Acute bronchitis 466.0 Active Assessment Shortness of breath R06.02 Active Assessment Hypertension, benign I10 Active Problem Other abnormal glucose 790.29 Active Assessment Edema of abdominal wall R60.0 Active Problem Chronic airway obstruction, not elsewhere classified 496 Active Medications Medication Code System Code Instructions Start Date End Date Status Dosage Atrovent HFA [facility] [address]-48 17 mcg/actuation Jun 22, 2014 2 puffs by Inhalation route 4 times per day Flonase [facility] [address]-21 50 MCG/ACT Nasally Once a day Dec 24, 2014 1 spray in each nostril Tudorza Pressair [facility] [address]-20 400 mcg/actuation Inhalation Twice a day Jun 22, 2014 1 puff Ventolin HFA [facility] [address]-33 108 (90 Base) MCG/ACT Inhalation every 4 hrs Dec 11, 2014 2 puffs as needed Advair Diskus [facility] [address]-79 250-50 mcg/dose Jun 20, 2014 1 puffs by Inhalation route 2 times per day Nasonex [facility] [address]-32 50 mcg/actuation Jun 18, 2014 1 sprays by Nasal route 2 times per day in each nostril Hydrochlorothiazide [facility] [address]-45 25 MG Orally Once a day Mar 08, 2015 1 tablet Omeprazole [facility] [address]-37 20 mg May 23, 2014 take 1 capsule ( 20 mg) by oral route once daily before a meal Amlodipine Besylate [facility] 11648649114 5 MG TAKE ONE TABLET BY MOUTH AT BEDTIME Naprosyn [facility] [address]-88 500 mg September 15, 2013 take 1 tablet (500 mg) by oral route 2 times per day with food PRN tramadol [facility] 0 50 mg Jul 02, 2014 take 1 tablet by Oral route every 6 hours as needed PRN pain- MUST LAST 30 DAYS Loratadine [facility] [address]-10 10 mg Dec 13, 2013 take 1 tablet by Oral route 1 time per day take at Procedures Procedure Coding System Code Date Office Visit, Est Pt., Level 3 CPT-4 30860 Mar 08, 2015 Vital Signs Date/Time: Mar 08, 2015 Temperature 98.9 F Weight 339 lbs Height 75 in BMI 42.37 Index Blood Pressure Diastolic 80 mmHg Blood Pressure Systolic 140 mmHg Cardiac Monitoring Heart Rate 80 bpm Results No Known Results Summary Purpose eClinicalWorks Submission
--- OUTSIDE RECORDS SUMMARY | 2018-07-10 05:45 | XMS REPORT ---
Author Author LYNN JACOBO Organization eClinicalWorks Address Unknown Phone Unavailable Care Team Providers Care Experimental Box Tester Name Role Phone LYNN JACOBO CP Unavailable [...] Date End Date Status Dosage Ventolin HFA [facility] [address]-65 108 (90 Base) MCG/ACT Inhalation every 4 hrs Dec 11, 2014 2 puffs as needed Results No Known Results Summary Purpose eClinicalWorks Submission
--- OUTSIDE RECORDS SUMMARY | 2018-07-10 05:45 | XMS REPORT ---
Author Author JUDD LUCAS [facility] eClinicalWorks Address Unknown Phone Unavailable Care Team Providers Care Ticket Printer Name Role Phone JUDD LUCAS CP Unavailable [...] Instructions Start Date End Date Status Dosage Amlodipine Besylate [facility] 54373427289 10 MG Orally Once a day 1 tablet Albuterol Sulfate [facility] 53024740985 (2.5 MG/3ML) 0.083% USE ONE VIAL PER NEBULIZER FOUR TIMES DAILY NEEDED Aspirin EC [facility] [address]-57 81 MG Orally Once a day 1 tablet Loratadine [facility] [address]-73 10 mg Dec 13, 2013 take 1 tablet by Oral route 1 time per day take at hs Atrovent HFA [facility] [address]-82 17 mcg/actuation Four times a day Jun 22, 2014 2 puffs Metoprolol Tartrate [facility] [address]-14 100 MG Orally Twice a day Apr 08, 2015 1 tablet [facility] [address] 20 mg Orally Once a day 1 tablet Ventolin HFA [facility] [address]-62 108 (90 Base) MCG/ACT Inhalation 4 times a day 2 puffs as needed Tudorza Pressair [facility] [address]-93 400 mcg/actuation Inhalation Twice a day Jun 22, 2014 1 puff Results No Known Results Summary Purpose eClinicalWorks Submission
--- OUTSIDE RECORDS SUMMARY | 2018-07-10 05:45 | XMS REPORT ---
Author LYNN Solares [facility] eClinicalWorks Address Unknown Phone Unavailable Care Team Providers Care Railcar Switcher Name Role Phone LYNN JACOBO CP Unavailable Allergies, Adverse Reactions, Alerts Substance Reaction Event Type Hydrochlorothiazide nausea Drug Allergy Problems Problem Type Condition Code Onset Dates Condition Status Problem Pain in soft tissues of limb 729.5 Active Problem Pneumonia, organism unspecified 486 Active Problem Obesity, unspecified 278.00 Active Problem Hypertension, benign I10 Active Problem Unspecified hypertrophic and atrophic condition of skin 701.9 Active Problem Mood disorder F39 Active Problem Acute bronchitis 466.0 Active Problem Cough 786.2 Active Problem Acute upper respiratory infections of unspecified site 465.9 Active Problem Allergic rhinitis, cause unspecified 477.9 Active Assessment Mood disorder F39 Active Problem Other abnormal glucose 790.29 Active Problem Chronic airway obstruction, not elsewhere classified 496 Active Problem Need for prophylactic vaccination and inoculation, Influenza V04.81 Active Medications Medication Code System Code Instructions Start Date End Date Status Dosage Advair Diskus [facility] [address]-06 250-50 MCG/DOSE Twice a day Jun 20, 2014 1 puff Flonase [facility] [address]-51 50 MCG/ACT Nasally Once a day Dec 24, 2014 1 spray in each nostril Metoprolol Tartrate [facility] [address]-39 100 MG Orally Twice a day Apr 08, 2015 1 tablet Atrovent HFA [facility] [address]-68 17 mcg/actuation Four times a day Jun 22, 2014 2 puffs Loratadine [facility] [address]-06 10 mg Dec 13, 2013 take 1 tablet by Oral route 1 time per day take at hs Lasix [facility] [address]-42 20 MG Orally Once a day 1 tablet Singulair [facility] 39213193842 10 MG Orally Once a day 1 tablet in the evening Amlodipine Besylate [facility] [address]-28 10 MG Orally Once a day 1 tablet Albuterol Sulfate [facility] 95762276130 (2.5 MG/3ML) 0.083% USE ONE VIAL PER NEBULIZER FOUR TIMES DAILY NEEDED Billdorza Be [facility] [address]-64 400 mcg/actuation Inhalation Twice a day Jun 22, 2014 1 puff Procedures Procedure Coding System Code Date Office Visit, Est Pt., Level 3 CPT-4 41965 Feb 10, 2016 Vital Signs Date/Time: Feb 10, 2016 Cardiac Monitoring Heart Rate 86 bpm Weight 325.8 lbs Height 75 in BMI 40.72 Index Blood Pressure Diastolic 74 mmHg Blood Pressure Systolic 130 mmHg Results No Known Results Summary Purpose eClinicalWorks Submission
--- OUTSIDE RECORDS SUMMARY | 2018-07-10 05:45 | XMS REPORT ---
Author Author LYNN JACOBO Organization [facility] Address [address] [place] [address] Care Team Providers Care Turn Operator Name Role Phone LYNN JACOBO Unavailable PROBLEMS Type Condition ICD9-CM Code OHS89-BI Code Onset Dates Condition Status SNOMED Code Problem Hypertension, benign I10 Active 50511636 Problem History of elevated glucose Z86.39 Active Problem Panlobular emphysema J43.1 Active 0799085 Problem Gastroesophageal reflux disease without esophagitis K21.9 Active 021095099 Problem Mood disorder F39 Active 38621485 Problem Lumbago with sciatica, right side M54.41 Active 269827395 Problem Chronic obstructive pulmonary disease, unspecified COPD type J44.9 Active 63693773 ALLERGIES Substance Reaction Event Type Date Status Hydrochlorothiazide nausea Drug Allergy September, Active SOCIAL HISTORY Never Assessed PLAN OF CARE VITAL SIGNS Height 75 in 2016-09-25 Weight 340 lbs 2016-09-25 Temperature 97.8 degrees Fahrenheit 2016-09-25 Heart Rate 80 bpm 2016-09-25 Respiratory Rate 24 2016-09-25 BMI 42.49 kg/m2 2016-09-25 Blood pressure systolic 140 mmHg 2016-09-25 Blood pressure diastolic 84 mmHg 2016-09-25 MEDICATIONS Medication Instructions Dosage Frequency Start Date End Date Duration Status Amlodipine Besylate 10 MG Orally Once a day 1 tablet 24h 30 Active Albuterol Sulfate (2.5 MG/3ML) 0.083% USE ONE VIAL PER NEBULIZER FOUR TIMES DAILY NEEDED 12 Active Advair Diskus 250-50 MCG/DOSE 1 puff 12h Jun, Active Sudafed 30 MG Orally 3 times a day 1 tablet as needed 8h September, Active Amoxicillin 500 MG Orally 3 times a day 1 capsule 8h 7 days Active PredniSONE 20 mg Orally Once a day 2 tablets 24h September, September, 05 days Active Protonix 40 mg Orally Once a day 1 tablet 24h Feb, 30 day(s) Active RESULTS Name Result Date Reference Range A1C (IN HOUSE) 2016-09-25 A1C IN HOUSE 6.0 4.3 - 5.6 % Previous A1c N/A Lot [id number] Exp date 05/2018 PROCEDURES Procedure Date Ordered Result Body Site GLYCATED HEMOGLOBIN TEST September 25, 2016 IMMUNIZATIONS No Known Immunizations MEDICAL (GENERAL) HISTORY Type Description Date Medical History COPD Medical History hypertension Surgical History sinus surgery 2013 Surgical History bladder cancer 2006 Surgical History angiogram 05/2014 Hospitalization History surgeries Hospitalization History hypertension 05/2014 Hospitalization History chest pain, hypertension 02/13/2016
--- OUTSIDE RECORDS SUMMARY | 2018-07-10 05:45 | XMS REPORT ---
Author LYNN Solares [facility] eClinicalWorks Address Unknown Phone Unavailable Care Team Providers Care Analytical Engineer Name Role Phone LYNN JACOBO CP Unavailable Allergies, Adverse Reactions, Alerts Substance Reaction Event Type Hydrochlorothiazide nausea Drug Allergy Problems Problem Type Condition Code Onset Dates Condition Status Problem Cough 786.2 Active Problem Allergic rhinitis, cause unspecified 477.9 Active Problem Acute bronchitis 466.0 Active Problem Lumbago with sciatica, right side M54.41 Active Problem Gastroesophageal reflux disease without esophagitis K21.9 Active Problem Chronic obstructive pulmonary disease, unspecified COPD type J44.9 Active Problem Unspecified hypertrophic and atrophic condition of skin 701.9 Active Problem Acute upper respiratory infections of unspecified site 465.9 Active Problem Mood disorder F39 Active Problem Hypertension, benign I10 Active Assessment Lumbago with sciatica, right side M54.41 Active Assessment Chronic obstructive pulmonary disease, unspecified COPD type J44.9 Active Problem Need for prophylactic vaccination and inoculation, Influenza V04.81 Active Problem Pain in soft tissues of limb 729.5 Active Problem Other abnormal glucose 790.29 Active Problem Obesity, unspecified 278.00 Active Problem Chronic airway obstruction, not elsewhere classified 496 Active Problem Pneumonia, organism unspecified 486 Active Medications Medication Code System Code Instructions Start Date End Date Status Dosage Amlodipine Besylate [facility] 36009646019 10 MG Orally Once a day [address] [facility] [address]-55 250-50 MCG/DOSE Twice a day Jun 20, [address] [facility] [address]-27 10 mg Dec 13, 2013 take 1 tablet by Oral route 1 time per day take at hs Prilosec OTC [facility] 85779-46627 20 mg Orally Once a day [address] [facility] [address]-64 17 mcg/actuation Four times a day Jun 22, [address] [facility] [address]-26 81 MG Orally Once a day [address] [facility] 45179148247 (2.5 MG/3ML) 0.083% USE ONE VIAL PER NEBULIZER FOUR TIMES DAILY NEEDED Nitroglycerin [facility] [address]-66 0.4 MG Sublingual 3 times a day, prn cp Feb 17, [address] [facility] [address]-87 20 mg Orally Once a day Mar 20, 2016 Mar 25, [address] [facility] [address]-74 108 (90 Base) MCG/ACT Inhalation 4 times a day 2 puffs as needed Tudorza Pressair [facility] [address]-80 400 mcg/actuation Inhalation Twice a day Jun 22, [address] [facility] [address]-63 40 mg Orally Once a day Feb 17, 2016 1 tablet Procedures Procedure Coding System Code Date Office Visit, Est Pt., Level 3 CPT-4 50038 Mar 20, 2016 Vital Signs Date/Time: Mar 20, 2016 Cardiac Monitoring Heart Rate 84 bpm Weight 315 lbs Height 75 in BMI 39.37 Index Blood Pressure Diastolic 88 mmHg Blood Pressure Systolic 138 mmHg Results No Known Results Summary Purpose eClinicalWorks Submission
--- OUTSIDE RECORDS SUMMARY | 2018-07-10 05:46 | XMS REPORT ---
Author Author LYNN JACOBO Organization eClinicalWorks Address Unknown Phone Unavailable Care Team Providers Care Squeegee Finisher Name Role Phone LYNN JACOBO CP Unavailable [...] Date End Date Status Dosage Metoprolol Tartrate [facility] [address]-64 50 MG Orally Twice a day Apr 08, 2015 1 tablet Results No Known Results Summary Purpose eClinicalWorks Submission
--- OUTSIDE RECORDS SUMMARY | 2018-07-10 05:46 | XMS REPORT ---
Author Author JOSE EDUARDODENNYS PEÑA [facility] Address Unknown Care Team Providers Care Correctional Cook Name Role Phone DENNYS CHISHOLM Unavailable PROBLEMS Type Condition ICD9-CM Code BOH99-JN Code Onset Dates Condition Status SNOMED Code Problem Mood disorder F39 Active 88523022 Problem Hypertension, benign I10 Active 41863148 Problem Simple chronic bronchitis J41.0 Active 22326307 Problem History of elevated glucose Z86.39 Active Problem Chronic obstructive pulmonary disease, unspecified COPD type J44.9 Active 68500069 Problem Gastroesophageal reflux disease without esophagitis K21.9 Active 120995357 Problem Panlobular emphysema J43.1 Active 7394218 Problem Lumbago with sciatica, right side M54.41 Active 663273285 ALLERGIES Substance Reaction Event Type Date Status Hydrochlorothiazide nausea Drug Allergy September, Active ENCOUNTERS Encounter Location Date Diagnosis [facility] [id number] [place] [address] 42095- 5740 May, [facility] [id number] [place] [address] 96765- 6158 May, Chronic obstructive pulmonary disease, unspecified COPD type J44.9 [facility] [id number] [place] [address] 73587- 0591 May, Hypertension, benign I10 and Simple chronic bronchitis J41.0 [facility] [id number] [place] [address] 54475- 4226 Apr, [facility] [id number] [place] [address] 77091- 4086 Apr, Panlobular emphysema J43.1 [facility] [id number] [place] [address] 69727- 9042 Mar, Chronic obstructive pulmonary disease, unspecified COPD type J44.9 [facility] [id number] [place] [address] 44842- 5207 Feb, Chronic obstructive pulmonary disease, unspecified COPD type J44.9 [facility] [id number] [place] [address] 44306- 0540 Dec, Chronic obstructive pulmonary disease, unspecified COPD type J44.9 [facility] [id number] [place] [address] 53230- 3352 Dec, [facility] [id number] [place] [address] 58828- 7084 Dec, Mood disorder F39 ; Hypertension, benign I10 and Gastroesophageal reflux disease without esophagitis K21.9 [facility] [id number] [place] [address] [id number] Oct, Dental caries K02.9 [facility] [address] [id number] September, Dental caries K02.9 [facility] [id number] [place] [address] 38220- 6356 September, History of elevated glucose Z86.39 and Eustachian tube dysfunction, bilateral H69.83 [facility] [id number] [place] [address] 20931- 4157 September, [facility] [id number] [place] [address] 51223- 0766 September, Dental examination Z01.20 [facility] [id number] [place] [address] 40486- 9898 Aug, [place] [facility] [id number] [place] [address] 67091- 1641 Aug, [facility] [id number] [place] [address] 32501- 2661 Jun, [facility] [id number] [place] [address] 89538- 0236 Jun, Chronic obstructive pulmonary disease, unspecified COPD type J44.9 [facility] [id number] [address] 7713 Jun, [facility] [id number] [place] [address] 98132- 6317 Apr, [facility] [id number] [place] [address] 10813- 4061 Mar, Chronic obstructive pulmonary disease, unspecified COPD type J44.9 and Lumbago with sciatica, right side M54.41 [facility] [id number] [place] [address] 79819- 9494 Feb, [facility] [id number] [place] [address] 83468- 2691 Feb, [facility] [id number] [place] [address] 57182- 8136 Feb, [facility] [id number] [place] [address] 88107- 7420 Feb, Gastroesophageal reflux disease without esophagitis K21.9 [facility] [id number] [place] [address] 20440- 5885 Feb, [facility] [id number] [place] [address] 81426- 2044 Feb, [facility] [id number] [place] [address] 34381- 0249 Feb, Mood disorder F39 [facility] [id number] [place] [address] 18727- 1477 Jan, [facility] [id number] [place] [address] 21688- 4555 Jan, Chronic obstructive pulmonary disease, unspecified COPD type J44.9 and Essential hypertension I10 [facility] [id number] [address]- 2980 Nov, [facility] [id number] [place] [address] 48723- 3944 September, Chronic obstructive pulmonary disease, unspecified COPD type J44.9 and Edema, unspecified type R60.9 [facility] [id number] [place] [address] 80417- 6717 September, [facility] [address] 37109- 2159 September, [facility] [address] 51195- 0550 September, Other chest pain R07.89 [place] [facility] [address] 73935- 4957 Aug, Hypertension I10 [place] [address] 51095- 4285 Jul, Moderate persistent asthma without complication J45.40 [place] [address] 35575- 6472 Jun, COPD (chronic obstructive pulmonary disease) J44.9 [place] [address] 45676- 0581 Jun, COPD (chronic obstructive pulmonary disease) J44.9 [facility] [id number] [place] [address] 70581- 9741 Jun, COPD (chronic obstructive pulmonary disease) J44.9 [facility] [facility] [id number] [place] [address] 99144- 6537 May, [place] [facility] [id number] [place] [address] 59096- 3785 Mar, Other chest pain R07.89 [facility] [id number] [place] [address] 17249- 5537 Mar, [facility] [id number] [place] [address] 47931- 2262 Feb, Hypertension, benign I10 ; Shortness of breath R06.02 and Edema of abdominal wall R60.0 [facility] [id number] [place] [address] 11397- 2097 Jan, [facility] [id number] [place] [address] 66079- 3544 Dec, Sinusitis 473.9 and Chronic airway obstruction, not elsewhere classified 496 [facility] [address] 66001- 7355 Dec, [facility] [id number] [place] [address] 51269- 1271 Dec, [facility] [address] 50781- 4176 Nov, [facility] [address] [id number] September, Dental examination V72.2 [facility] [id number] [place] [address] 78973- 3652 September, [facility] [id number] [place] [address] 47757- 8182 Aug, [facility] [id number] [place] [address] 37428- 1949 Aug, [facility] [id number] [place] [address] 71855- 3092 Jul, [facility] [id number] [place] [address] 03945- 7195 Jun, [facility] [id number] [place] [address] 89393- 1086 Jun, [facility] [id number] [place] [address] 87599- 6911 Jun, [facility] [id number] [place] [address] 84975- 3770 Jun, [facility] [id number] [place] [address]- 9850 13 Jun, 2014 [facility] [place] [facility] [address] [id number] [place] [address]- 5706 Jun, 2014 [facility] [place] [facility] [address] [id number] [place] [address] 2546 Jun, 2014 [facility] [place] [facility] [address] [id number] [place] [address]- 9476 Jun, 2014 [facility] [place] [facility] [address] [id number] [place] [address]- 2544 Jun, 2014 [facility] [place] [facility] [address] [id number] [place] [address]- 3416 Jun, 2014 [facility] [place] [facility] [address] [facility] [id number] [place] [address]- 2540 Jun, 2014 [facility] [place] [facility] [address] [facility] [id number] [place] [address]- 7970 Jun, [facility] [place] [facility] [address] [id number] [place] [address]- 0807 May, [facility] [place] [facility] [address] [facility] [id number] [place] [address]- 7824 May, [facility] [place] [facility] [address] [facility] [id number] [place] [address]- 6594 May, [facility] [place] [facility] [address] [facility] [id number] [place] [address]- 3029 May, [facility] [place] [facility] [address] [id number] [place] [address]- 2540 May, [facility] [place] [facility] [address] [facility] [id number] [place] [address]- 8656 May, [facility] [place] [facility] [address] [facility] [id number] [place] [address]- 4761 Apr, [facility] [place] [facility] [address] [facility] [id number] [place] [address]- 8312 Apr, [facility] [place] [facility] [address] [id number] [place] [address]- 7379 Apr, [facility] [place] [facility] [address] [id number] [place] [address]- 0259 Mar, [facility] [place] [facility] [address] [id number] [place] [address]- 3610 Mar, [facility] [place] [facility] [address] [id number] [place] [address]- 7831 Mar, [facility] [place] [facility] [address] [id number] [place] [address]- 3388 Mar, [facility] [place] [facility] [address] [id number] [place] [address]- 2427 Mar, [facility] [place] [facility] [address] [id number] [place] [address]- 8332 Mar, [facility] [place] [facility] [address] [id number], [place] [address]- 7993 Mar, [facility] [place] [facility] [address] [id number], [place] [address]- 8744 Mar, [facility] [place] [facility] [address] [id number], [place] [address]- 5712 Mar, [facility] [place] [facility] [address] [id number], [place] [address]- 6415 Mar, [facility] [place] [facility] [address] [id number], [place] [address]- 5733 Feb, [facility] [place] [facility] [address] [id number], [place] [address]- 8969 Feb, [facility] [place] [facility] [address] [id number], [place] [address]- 4227 Feb, [facility] [place] [facility] [address] [id number], [place] [address]- 6115 Feb, [facility] [place] [facility] [address] [id number] [place] [address]- 3742 Jan, [facility] [place] [facility] [address] [id number] [place] [address]- 7996 Jan, [facility] [place] [facility] [address] [id number] [place] [address]- 3799 Jan, [facility] [place] [facility] [address] [id number] [place] [address]- 6519 Jan, [facility] [place] [facility] [address] [id number] [place] [address]- 2539 Dec, [facility] [place] [facility] [address] [id number] [place] [address]- 5047 Dec, [facility] [place] [facility] [address] [id number] [place] [address]- 6644 Dec, [facility] [place] [facility] [address] [id number] [place] [address]- 8646 Dec, [facility] [place] [facility] [address] [id number] [place] [address]- 2594 Dec, [facility] [place] [facility] [address] [id number] [place] [address]- 5181 Dec, [facility] [place] [facility] [address] [id number] [place] [address]- 6754 Nov, [facility] [place] [facility] [address] [id number] [place] [address]- 3916 Nov, [facility] [place] [facility] [address] [id number] [place] [address]- 3887 Nov, [facility] [place] [facility] [address] [id number] [place] [address]- 5221 Nov, [facility] [place] [facility] [address] [id number] [place] [address]- 1803 September, [facility] [place] [facility] [address] [id number] [place] [address]- 3769 September, [facility] [place] [facility] [address] [id number] [place] [address]- 6195 Jul, [facility] [place] [facility] [address] [id number] [place] [address]- 2769 Jul, [facility] [place] [facility] [address] [id number] [place] [address]- 8967 Jul, [facility] [place] [facility] [address] [id number] [place] [address]- 8872 Jul, [facility] [place] [facility] [address] [id number] [place] [address]- 6281 Jun, [facility] [place] [facility] [address] [id number] [place] [address]- 3735 Jun, [facility] [place] [facility] [address] [id number] [place] [address]- 2609 Jun, [facility] [place] [facility] [address] [id number] [place] [address]- 1142 Jun, [facility] [place] [facility] [address] [id number] [place] [address]- 9134 Jun, [facility] [place] [facility] [address] [id number] [place] [address]- 1464 Jun, [facility] [place] [facility] [address] [id number] [place] [address]- 8349 Jun, [facility] [place] [facility] [address] [id number] [place] [address]- 0107 Jun, [facility] [place] [facility] [address] [id number] [place] [address]- 5992 Jun, [facility] [place] [facility] [address] [id number] [place] [address]- 5337 Jun, [facility] [place] [facility] [address] [id number] [place] [address]- 5649 May, [facility] [place] [facility] [address] [id number] [place] [address]- 3822 May, [facility] [address] [id number] [place] [address]- 9234 Apr, [facility] [place] [facility] [address] [id number] [place] [address]- 6026 Apr, [facility] [address] [id number] [place] [address]- 9505 Apr, [facility] [place] [facility] [address] [id number] [place] [address]- 7865 Apr, [facility] [address] [id number] [place] [address]- 4735 Apr, [facility] [address] [id number] [place] [address]- 1366 Apr, [facility] [address] [id number] [place] [address]- 3891 Mar, [facility] [address] [id number] [place] [address]- 1563 Mar, [facility] [place] [facility] [address] [id number] [place] [address]- 2803 Feb, [facility] [address] [id number] [place] [address]- 1721 Jan, [facility] [place] [facility] [address] [id number] [place] [address] 2545 Jan, [facility] [place] [facility] [address] [id number] [place] [address]- 2547 Dec, [facility] [place] [facility] [address] [id number] [place] [address]- 3798 Dec, [facility] [place] [facility] [address] [id number] [place] [address]- 2546 Nov, [facility] [place] [facility] [address] [id number] [place] [address] 2544 Nov, [facility] [place] [facility] [address] [id number] [place] [address]- 0014 Oct, [facility] [address] [id number] [place] [address]- 7876 September, [facility] [address] [id number] [place] [address]- 1056 September, [facility] [address] [id number] [place] [address]- 6361 Aug, [facility] [address] [id number] [place] [address]- 1487 Aug, [facility] [address] [id number] [place] [address]- 7658 Aug, [facility] [address] [id number] [place] [address]- 1302 Aug, [facility] [address] [id number] [place] [address]- [address] Aug, [facility] [address] [id number] [place] [address]- [address] Jun, [facility] [address] [id number] [place] [address]- [address] Jun, [facility] [address] [id number] [place] [address]- 1864 Jun, [facility] [address] [id number], [place] [address]- 9064 May, [facility] [place] [facility] [address] [id number] [place] [address]- 2067 May, [facility] [place] [facility] [address] [id number] [place] [address]- 8206 Apr, [facility] [place] [facility] [address] [id number] [place] [address]- 7886 Mar, [facility] [address] [id number], [place] [address]- 3363 Mar, [facility] [place] [facility] [address] [id number] [place] [address]- 9382 Mar, [facility] [place] [facility] [address] [id number] [place] [address]- 0246 Mar, [facility] [place] [facility] [address] [id number] [place] [address]- 8056 Mar, [facility] [place] [facility] [address] [id number] [place] [address]- 3734 Mar, [facility] [place] [facility] [address] [id number] [place] [address]- 1930 Mar, [facility] [place] [facility] [address] [id number] [place] [address]- 0482 Mar, [facility] [place] [facility] [address] [facility] [id number] [place] [address]- 6697 Feb, [facility] [place] [facility] [address] [id number] [place] [address]- 5176 Feb, [facility] [place] [facility] [address] [facility] [id number] [place] [address]- 0870 Feb, [facility] [place] [facility] [address] [facility] [id number] [place] [address]- 2432 Feb, [facility] [place] [facility] [address] [id number] [place] [address]- 7530 Dec, [facility] [place] [facility] [address] [id number], [place] [address]- 0640 Nov, [facility] [place] [facility] [address] [id number] [place] [address]- 1599 Nov, [facility] [place] [facility] [address] [facility] [id number] [place] [address]- 7634 Nov, [facility] [place] [facility] [address] [facility] [id number] [place] [address]- 1580 Nov, [facility] [place] [facility] [address] [facility] [id number] [place] [address] Nov, [facility] [address] [facility] [id number] [place] [address] Nov, IMMUNIZATIONS No Known Immunizations SOCIAL HISTORY Never Assessed REASON FOR VISIT 1 WK TE PLAN OF CARE Activity Details Follow Up 1 Week Reason:te 31 VITAL SIGNS Blood pressure systolic 154 mmHg 2016-09-30 Blood pressure diastolic [id number] mmHg 2016-09-30 MEDICATIONS Medication Instructions Dosage Frequency Start Date End Date Duration Status Protonix 40 mg Orally Once a day 1 tablet 24h Feb, 30 day(s) Active Advair Diskus 250-50 MCG/DOSE 1 puff 12h Jun, Active Clindamycin HCl 150 MG Orally every 6 hrs 2 capsules 6h 7 days Active Sudafed 30 MG Orally 3 times a day 1 tablet as needed 8h September, Active Amlodipine Besylate 10 MG Orally Once a day 1 tablet 24h 30 Active Albuterol Sulfate (2.5 MG/3ML) 0.083% USE ONE VIAL PER NEBULIZER FOUR TIMES DAILY NEEDED 12 Active PredniSONE 20 mg Orally Once a day 2 tablets 24h September, September, 05 days Active Amoxicillin 500 MG Orally 3 times a day 1 capsule 8h 7 days Active RESULTS No Results PROCEDURES Procedure Date Ordered Result Body Site EXTRAC ERUPTED TOOTH/EXPOSED ROOT September 30, 2016 INSTRUCTIONS MEDICATIONS ADMINISTERED No Known Medications MEDICAL (GENERAL) HISTORY Type Description Date Medical History COPD Medical History hypertension Surgical History sinus surgery 2013 Surgical History bladder cancer 2007 Surgical History angiogram 05/2014 Hospitalization History surgeries Hospitalization History hypertension 05/2014 Hospitalization History chest pain, hypertension 02/13/2016
--- OUTSIDE RECORDS SUMMARY | 2018-07-10 05:46 | XMS REPORT ---
Author Author JOSE EDUARDODENNYS PEÑA [facility] Address Unknown Care Team Providers Care Video Games Mechanic Name Role Phone DENNYS CHISHOLM Unavailable PROBLEMS Type Condition ICD9-CM Code AMN18-JG Code Onset Dates Condition Status SNOMED Code Problem Mood disorder F39 Active 96514821 Problem Hypertension, benign I10 Active 65584731 Problem Simple chronic bronchitis J41.0 Active 26004998 Problem History of elevated glucose Z86.39 Active Problem Chronic obstructive pulmonary disease, unspecified COPD type J44.9 Active 70127950 Problem Gastroesophageal reflux disease without esophagitis K21.9 Active 524076261 Problem Panlobular emphysema J43.1 Active 7542690 Problem Lumbago with sciatica, right side M54.41 Active 462850179 ALLERGIES Substance Reaction Event Type Date Status Hydrochlorothiazide nausea Drug Allergy September, Active ENCOUNTERS Encounter Location Date Diagnosis [facility] [id number] [place] [address] 97615- 1877 May, [facility] [id number] [place] [address] 30528- 3730 May, Chronic obstructive pulmonary disease, unspecified COPD type J44.9 [facility] [id number] [place] [address] 72621- 3549 May, Hypertension, benign I10 and Simple chronic bronchitis J41.0 [facility] [id number] [place] [address] 64492- 3988 Apr, [facility] [id number] [place] [address] 51363- 8298 Apr, Panlobular emphysema J43.1 [facility] [id number] [place] [address] 54145- 2133 Mar, Chronic obstructive pulmonary disease, unspecified COPD type J44.9 [facility] [id number] [place] [address] 71839- 1636 Feb, Chronic obstructive pulmonary disease, unspecified COPD type J44.9 [facility] [id number] [place] [address] 03661- 2435 Dec, Chronic obstructive pulmonary disease, unspecified COPD type J44.9 [facility] [id number] [place] [address] 47309- 0584 Dec, [facility] [id number] [place] [address] 72111- 4140 Dec, Mood disorder F39 ; Hypertension, benign I10 and Gastroesophageal reflux disease without esophagitis K21.9 [facility] [id number] [place] [address] [id number] Oct, Dental caries K02.9 [facility] [address] [id number] September, Dental caries K02.9 [facility] [id number] [place] [address] 83526- 7899 September, History of elevated glucose Z86.39 and Eustachian tube dysfunction, bilateral H69.83 [facility] [id number] [place] [address] 90028- 6320 September, [facility] [id number] [place] [address] 85206- 0263 September, Dental examination Z01.20 [facility] [id number] [place] [address] 28695- 4146 Aug, [facility] [id number] [place] [address] 10922- 5606 Aug, [facility] [id number] [place] [address] 13233- 4492 Jun, [facility] [id number] [place] [address] 93915- 0219 Jun, Chronic obstructive pulmonary disease, unspecified COPD type J44.9 [facility] [id number] [address] 4088 Jun, [facility] [id number] [place] [address] 01263- 5964 Apr, [facility] [id number] [place] [address] 95244- 9127 Mar, Chronic obstructive pulmonary disease, unspecified COPD type J44.9 and Lumbago with sciatica, right side M54.41 [facility] [id number] [place] [address] 53090- 5087 Feb, [facility] [id number] [place] [address] 69569- 9792 Feb, [facility] [id number] [place] [address] 05011- 1883 Feb, [facility] [id number] [place] [address] 22809- 3315 Feb, Gastroesophageal reflux disease without esophagitis K21.9 [facility] [id number] [place] [address] 34061- 1190 Feb, [facility] [id number] [place] [address] 55653- 6075 Feb, [facility] [id number] [place] [address] 86291- 2261 Feb, Mood disorder F39 [facility] [id number] [place] [address] 93405- 8652 Jan, [facility] [id number] [place] [address] 25439- 8182 Jan, Chronic obstructive pulmonary disease, unspecified COPD type J44.9 and Essential hypertension I10 [facility] [id number] [address]- 2353 Nov, [facility] [id number] [place] [address] 76374- 5680 September, Chronic obstructive pulmonary disease, unspecified COPD type J44.9 and Edema, unspecified type R60.9 [facility] [id number] [place] [address] 63183- 9765 September, [facility] [address] 58858- 3027 September, [facility] [address] 61569- 4939 September, Other chest pain R07.89 [facility] [facility] [address] 24820- 6234 Aug, Hypertension I10 [place] [address] 81587- 3907 Jul, Moderate persistent asthma without complication J45.40 [place] [address] 06367- 6367 Jun, COPD (chronic obstructive pulmonary disease) J44.9 [facility] [facility] [address] 55446- 6958 Jun, COPD (chronic obstructive pulmonary disease) J44.9 [facility] [id number] [place] [address] 50089- 2997 Jun, COPD (chronic obstructive pulmonary disease) J44.9 [facility] [id number] [place] [address] 88281- 6743 May, [facility] [id number] [place] [address] 85802- 4574 Mar, Other chest pain R07.89 [facility] [id number] [place] [address] 36905- 5994 Mar, [facility] [id number] [place] [address] 38452- 4324 Feb, Hypertension, benign I10 ; Shortness of breath R06.02 and Edema of abdominal wall R60.0 [facility] [id number] [place] [address] 62095- 7915 Jan, [facility] [id number] [place] [address] 23530- 9602 Dec, Sinusitis 473.9 and Chronic airway obstruction, not elsewhere classified 496 [facility] [address] 56108- 4512 Dec, [facility] [id number] [place] [address] 75184- 7209 Dec, [facility] [address] 34555- 0704 Nov, [facility] [address] [id number] September, Dental examination V72.2 [facility] [id number] [place] [address] 61475- 5125 September, [facility] [id number] [place] [address] 50464- 0761 Aug, [facility] [id number] [place] [address] 71625- 7357 Aug, [facility] [id number] [place] [address] 23712- 6715 Jul, [facility] [id number] [place] [address] 05055- 1717 Jun, [facility] [id number] [place] [address] 19441- 6466 Jun, [facility] [id number] [place] [address] 13584- 0306 Jun, [facility] [id number] [place] [address] 81155- 2756 Jun, [facility] [id number] [address]- 7581 13 Jun, 2014 [facility] [place] [facility] [address] [id number] [place] [address]- 8386 Jun, 2014 [facility] [place] [facility] [address] [id number] [place] [address] 2546 Jun, 2014 [facility] [place] [facility] [address] [id number] [place] [address]- 0236 Jun, 2014 [facility] [place] [facility] [address] [id number] [place] [address]- 2542 Jun, 2014 [facility] [place] [facility] [address] [id number] [place] [address]- 6576 Jun, 2014 [facility] [place] [facility] [address] [facility] [id number] [place] [address]- 2542 Jun, 2014 [facility] [place] [facility] [address] [facility] [id number] [place] [address]- 6324 Jun, [facility] [place] [facility] [address] [id number] [place] [address]- 2067 May, [facility] [place] [facility] [address] [facility] [id number] [place] [address]- 0216 May, [facility] [place] [facility] [address] [facility] [id number] [place] [address]- 9702 May, [facility] [place] [facility] [address] [facility] [id number] [place] [address]- 8374 May, [facility] [place] [facility] [address] [id number] [place] [address]- 2541 May, [facility] [place] [facility] [address] [facility] [id number] [place] [address]- 7046 May, [facility] [place] [facility] [address] [facility] [id number] [place] [address]- 4863 Apr, [facility] [place] [facility] [address] [facility] [id number] [place] [address]- 5950 Apr, [facility] [place] [facility] [address] [id number] [place] [address]- 2444 Apr, [facility] [place] [facility] [address] [id number] [place] [address]- 4197 Mar, [facility] [place] [facility] [address] [id number] [place] [address]- 6793 Mar, [facility] [place] [facility] [address] [id number] [place] [address]- 0236 Mar, [facility] [place] [facility] [address] [id number] [place] [address]- 6318 Mar, [facility] [place] [facility] [address] [id number] [place] [address]- 4958 Mar, [facility] [place] [facility] [address] [id number] [place] [address]- 8829 Mar, [facility] [place] [facility] [address] [id number] [address]- 0637 Mar, [facility] [place] [facility] [address] [id number] [address]- 4298 Mar, [facility] [place] [facility] [address] [id number] [address]- 4717 Mar, [facility] [place] [facility] [address] [id number] [place] [address]- 1760 Mar, [facility] [place] [facility] [address] [id number] [address]- 4677 Feb, [facility] [place] [facility] [address] [id number] [address]- 3975 Feb, [facility] [place] [facility] [address] [id number] [address]- 3265 Feb, [facility] [place] [facility] [address] [id number] [address]- 5543 Feb, [facility] [place] [facility] [address] [id number] [place] [address]- 2428 Jan, [facility] [place] [facility] [address] [id number] [place] [address]- 4216 Jan, [facility] [place] [facility] [address] [id number] [place] [address]- 9229 Jan, [facility] [place] [facility] [address] [id number] [place] [address]- 5470 Jan, [facility] [place] [facility] [address] [id number] [place] [address]- 8375 Dec, [facility] [place] [facility] [address] [id number] [place] [address]- 3302 Dec, [facility] [place] [facility] [address] [id number] [place] [address]- 8224 Dec, [facility] [place] [facility] [address] [id number] [place] [address]- 9689 Dec, [facility] [place] [facility] [address] [id number] [place] [address]- 4399 Dec, [facility] [place] [facility] [address] [id number] [place] [address]- 7542 Dec, [facility] [place] [facility] [address] [id number] [place] [address]- 7484 Nov, [facility] [place] [facility] [address] [id number] [place] [address]- 6215 Nov, [facility] [place] [facility] [address] [id number] [place] [address]- 2993 Nov, [facility] [place] [facility] [address] [id number] [place] [address]- 8254 Nov, [facility] [place] [facility] [address] [id number] [place] [address]- 1178 September, [facility] [place] [facility] [address] [id number] [place] [address]- 8153 September, [facility] [place] [facility] [address] [id number] [place] [address]- 3762 Jul, [facility] [place] [facility] [address] [id number] [place] [address]- 7188 Jul, [facility] [place] [facility] [address] [id number] [place] [address]- 3847 Jul, [facility] [place] [facility] [address] [id number] [place] [address]- 9922 Jul, [facility] [place] [facility] [address] [id number] [place] [address]- 1204 Jun, [facility] [place] [facility] [address] [id number] [place] [address]- 5453 Jun, [facility] [place] [facility] [address] [id number] [place] [address]- 9263 Jun, [facility] [place] [facility] [address] [id number] [place] [address]- 2881 Jun, [facility] [place] [facility] [address] [id number] [place] [address]- 7616 Jun, [facility] [place] [facility] [address] [id number] [place] [address]- 8117 Jun, [facility] [place] [facility] [address] [id number] [place] [address]- 0537 Jun, [facility] [place] [facility] [address] [id number] [place] [address]- 8807 Jun, [facility] [place] [facility] [address] [id number] [place] [address]- 0524 Jun, [facility] [place] [facility] [address] [id number] [place] [address]- 6145 Jun, [facility] [place] [facility] [address] [id number] [place] [address]- 8632 May, [facility] [place] [facility] [address] [id number] [place] [address]- 8546 May, [facility] [address] [id number] [place] [address]- 7508 Apr, [facility] [place] [facility] [address] [id number] [place] [address]- 6566 Apr, [facility] [address] [id number] [place] [address]- 1406 Apr, [facility] [place] [facility] [address] [id number] [place] [address]- 0482 Apr, [facility] [address] [id number] [place] [address]- 4851 Apr, [facility] [address] [id number] [place] [address]- 1339 Apr, [facility] [address] [id number] [place] [address]- 0565 Mar, [facility] [address] [id number] [place] [address]- 0757 Mar, [facility] [place] [facility] [address] [id number] [place] [address]- 3159 Feb, [facility] [address] [id number] [place] [address]- 2517 Jan, [facility] [place] [facility] [address] [id number] [place] [address] 2548 Jan, [facility] [place] [facility] [address] [id number] [place] [address]- 2541 Dec, [facility] [place] [facility] [address] [id number] [place] [address]- 4913 Dec, [facility] [place] [facility] [address] [id number] [place] [address]- 2546 Nov, [facility] [place] [facility] [address] [id number] [place] [address] 2540 Nov, [facility] [place] [facility] [address] [id number] [place] [address]- 7921 Oct, [facility] [address] [id number] [place] [address]- 3484 September, [facility] [address] [id number] [place] [address]- 8256 September, [facility] [address] [id number] [place] [address]- 6346 Aug, [facility] [address] [id number] [place] [address]- 5243 Aug, [facility] [address] [id number] [place] [address]- 8944 Aug, [facility] [address] [id number] [place] [address]- 1445 Aug, [facility] [address] [id number] [place] [address]- 9464 Aug, [facility] [address] [id number] [place] [address]- 3857 Jun, [facility] [address] [id number] [place] [address]- 0031 Jun, [facility] [address] [id number] [place] [address]- 7644 Jun, [facility] [address] [id number] [address]- 3033 May, [facility] [place] [facility] [address] [id number] [place] [address]- 7362 May, [facility] [place] [facility] [address] [id number] [place] [address]- 3996 Apr, [facility] [place] [facility] [address] [id number] [place] [address]- 2326 Mar, [facility] [address] [id number] [address]- 8710 Mar, [facility] [place] [facility] [address] [id number] [place] [address]- 5004 Mar, [facility] [place] [facility] [address] [id number] [place] [address]- 4606 Mar, [facility] [place] [facility] [address] [id number] [place] [address]- 3176 Mar, [facility] [place] [facility] [address] [id number] [place] [address]- 4499 Mar, [facility] [place] [facility] [address] [id number] [place] [address]- 9947 Mar, [facility] [place] [facility] [address] [id number] [place] [address]- 6501 Mar, [facility] [place] [facility] [address] [facility] [id number] [place] [address]- 2213 Feb, [facility] [place] [facility] [address] [id number] [place] [address]- 6516 Feb, [facility] [place] [facility] [address] [facility] [id number] [place] [address]- 0405 Feb, [facility] [place] [facility] [address] [facility] [id number] [place] [address]- 7098 Feb, [facility] [place] [facility] [address] [id number] [place] [address]- 1253 Dec, [facility] [place] [facility] [address] [id number] [address]- 6051 Nov, [facility] [place] [facility] [address] [id number] [place] [address]- 1759 Nov, [facility] [place] [facility] [address] [facility] [id number] [place] [address]- 6750 Nov, [facility] [place] [facility] [address] [facility] [id number] [place] [address]- 7086 Nov, [facility] [place] [facility] [address] [facility] [id number] [place] [address]- 9966 Nov, [facility] [address] [facility] [id number] [address]- 6086 Nov, IMMUNIZATIONS No Known Immunizations SOCIAL HISTORY Never Assessed REASON FOR VISIT [facility] PLAN OF CARE Activity Details Follow Up prn Reason:extractions VITAL SIGNS MEDICATIONS Medication Instructions Dosage Frequency Start Date End Date Duration Status Amoxicillin 500 MG Orally 3 times a day 1 capsule 8h 7 days Active Amlodipine Besylate 10 MG Orally Once a day 1 tablet 24h 30 Active Advair Diskus 250-50 MCG/DOSE 1 puff 12h 11 Jun, 2014 Active Protonix 40 mg Orally Once a day 1 tablet 24h 10 Feb, 2016 30 day(s) Active Albuterol Sulfate (2.5 MG/3ML) 0.083% USE ONE VIAL PER NEBULIZER FOUR TIMES DAILY NEEDED 12 Active RESULTS No Results PROCEDURES Procedure Date Ordered Result Body Site LTD ORAL EVALUATION - PROBLEM FOCUS September 14, 2016 INTRAORL-PERIAPICAL 1 FILM [id number] September 14, 2016 INSTRUCTIONS MEDICATIONS ADMINISTERED No Known Medications MEDICAL (GENERAL) HISTORY Type Description Date Medical History COPD Medical History hypertension Surgical History sinus surgery 2013 Surgical History bladder cancer 2007 Surgical History angiogram 05/2014 Hospitalization History surgeries Hospitalization History hypertension 05/2014 Hospitalization History chest pain, hypertension 02/13/2016
--- OUTSIDE RECORDS SUMMARY | 2018-07-10 05:47 | XMS REPORT ---
Author Author JOSE EDUARDODENNYS PEÑA [facility] Address Unknown Care Team Providers Care Plunket Nurse Name Role Phone DENNYS CHISHOLM Unavailable PROBLEMS Type Condition ICD9-CM Code [id number] Code Onset Dates Condition Status SNOMED Code Problem Mood disorder F39 Active 54435050 Problem Hypertension, benign I10 Active 00296713 Problem Simple chronic bronchitis J41.0 Active 18075490 Problem History of elevated glucose Z86.39 Active Problem Chronic obstructive pulmonary disease, unspecified COPD type J44.9 Active 98705295 Problem Gastroesophageal reflux disease without esophagitis K21.9 Active 892249191 Problem Panlobular emphysema J43.1 Active 3080906 Problem Lumbago with sciatica, right side M54.41 Active 252160613 ALLERGIES Substance Reaction Event Type Date Status Hydrochlorothiazide nausea Drug Allergy Oct, Active ENCOUNTERS Encounter Location Date Diagnosis [facility] [id number] [place] [address] 52399- 5624 May, [facility] [id number] [place] [address] 40371- 5999 May, Chronic obstructive pulmonary disease, unspecified COPD type J44.9 [facility] [id number] [place] [address] 29107- 1554 May, Hypertension, benign I10 and Simple chronic bronchitis J41.0 [facility] [id number] [place] [address] 96116- 3562 Apr, [facility] [id number] [place] [address] 18733- 7541 Apr, Panlobular emphysema J43.1 [facility] [id number] [place] [address] 09499- 2873 Mar, Chronic obstructive pulmonary disease, unspecified COPD type J44.9 [facility] [id number] [place] [address] 00839- 2682 Feb, Chronic obstructive pulmonary disease, unspecified COPD type J44.9 [facility] [id number] [place] [address] 82070- 4632 Dec, Chronic obstructive pulmonary disease, unspecified COPD type J44.9 [facility] [id number] [place] [address] 44768- 4012 Dec, [facility] [id number] [place] [address] 04759- 1130 Dec, Mood disorder F39 ; Hypertension, benign I10 and Gastroesophageal reflux disease without esophagitis K21.9 [facility] [id number] [place] [address] [id number] Oct, Dental caries K02.9 [facility] [address] [id number] September, Dental caries K02.9 [facility] [id number] [place] [address] 70081- 4695 September, History of elevated glucose Z86.39 and Eustachian tube dysfunction, bilateral H69.83 [facility] [id number] [place] [address] 36723- 1640 September, [facility] [id number] [place] [address] 34017- 4921 September, Dental examination Z01.20 [facility] [id number] [place] [address] 91429- 4202 Aug, [facility] [id number] [place] [address] 85519- 5370 Aug, [facility] [id number] [place] [address] 07834- 8461 Jun, [facility] [id number] [place] [address] 44189- 9368 Jun, Chronic obstructive pulmonary disease, unspecified COPD type J44.9 [facility] [id number] [address] 5528 Jun, [facility] [id number] [place] [address] 11565- 2054 Apr, [facility] [id number] [place] [address] 52361- 6643 Mar, Chronic obstructive pulmonary disease, unspecified COPD type J44.9 and Lumbago with sciatica, right side M54.41 [facility] [id number] [place] [address] 36076- 9592 Feb, [facility] [id number] [place] [address] 07490- 2611 Feb, [facility] [id number] [place] [address] 99046- 6016 Feb, [facility] [id number] [place] [address] 02300- 1122 Feb, Gastroesophageal reflux disease without esophagitis K21.9 [facility] [id number] [place] [address] 47377- 1601 Feb, [facility] [id number] [place] [address] 19459- 9457 Feb, [facility] [id number] [place] [address] 82733- 5135 Feb, Mood disorder F39 [facility] [id number] [place] [address] 25019- 5024 Jan, [facility] [id number] [place] [address] 69509- 5039 Jan, Chronic obstructive pulmonary disease, unspecified COPD type J44.9 and Essential hypertension I10 [facility] [id number] [address]- 2290 Nov, [facility] [id number] [place] [address] 93526- 6155 September, Chronic obstructive pulmonary disease, unspecified COPD type J44.9 and Edema, unspecified type R60.9 [facility] [id number] [place] [address] 03553- 2687 September, [facility] [address] 91097- 9581 September, [facility] [address] 46403- 6289 September, Other chest pain R07.89 [facility] [address] 82174- 1907 Aug, Hypertension I10 [facility] [address] 99188- 3544 Jul, Moderate persistent asthma without complication J45.40 [facility] [address] 49465- 7576 Jun, COPD (chronic obstructive pulmonary disease) J44.9 [facility] [address] 27253- 1183 Jun, COPD (chronic obstructive pulmonary disease) J44.9 [facility] [id number] [place] [address] 15672- 4714 Jun, COPD (chronic obstructive pulmonary disease) J44.9 [facility] [id number] [place] [address] 35879- 7989 May, [facility] [id number] [place] [address] 25592- 8817 Mar, Other chest pain R07.89 [facility] [id number] [place] [address] 47284- 0128 Mar, [facility] [id number] [place] [address] 17080- 9023 Feb, Hypertension, benign I10 ; Shortness of breath R06.02 and Edema of abdominal wall R60.0 [facility] [id number] [place] [address] 09698- 5082 Jan, [facility] [id number] [place] [address] 75118- 2470 Dec, Sinusitis 473.9 and Chronic airway obstruction, not elsewhere classified 496 [facility] [address] 67750- 3126 Dec, [facility] [id number] [place] [address] 33762- 1781 Dec, [facility] [address] 63101- 0895 Nov, [facility] [address] [id number] September, Dental examination V72.2 [facility] [id number] [place] [address] 57853- 5230 September, [facility] [id number] [place] [address] 25216- 4836 Aug, [facility] [id number] [place] [address] 49398- 5218 Aug, [facility] [id number] [place] [address] 54452- 8892 Jul, [facility] [id number] [place] [address] 14569- 6699 Jun, [facility] [id number] [place] [address] 70705- 5830 Jun, [facility] [id number] [place] [address] 75176- 4384 Jun, [facility] [id number] [place] [address] 45446- 9947 Jun, [facility] [id number] [place] [address]- 7830 13 Jun, 2014 [facility] [place] [facility] [address] [id number] [place] [address]- 4646 Jun, 2014 [facility] [place] [facility] [address] [id number] [place] [address] 2546 Jun, 2014 [facility] [place] [facility] [address] [id number] [place] [address]- 6766 Jun, 2014 [facility] [place] [facility] [address] [id number] [place] [address]- 2542 Jun, 2014 [facility] [place] [facility] [address] [id number] [place] [address]- 0146 Jun, 2014 [facility] [place] [facility] [address] [facility] [id number] [place] [address]- 2548 Jun, 2014 [facility] [place] [facility] [address] [facility] [id number] [place] [address]- 2539 Jun, [facility] [place] [facility] [address] [id number] [place] [address]- 6494 May, [facility] [place] [facility] [address] [facility] [id number] [place] [address]- 7137 May, [facility] [place] [facility] [address] [facility] [id number] [place] [address]- 7644 May, [facility] [place] [facility] [address] [facility] [id number] [place] [address]- 0940 May, [facility] [place] [facility] [address] [id number] [place] [address]- 2548 May, [facility] [place] [facility] [address] [facility] [id number] [place] [address]- 1236 May, [facility] [place] [facility] [address] [facility] [id number] [place] [address]- 4883 Apr, [facility] [place] [facility] [address] [facility] [id number] [place] [address]- 2344 Apr, [facility] [place] [facility] [address] [id number] [place] [address]- 7027 Apr, [facility] [place] [facility] [address] [id number] [place] [address]- 6519 Mar, [facility] [place] [facility] [address] [id number] [place] [address]- 0972 Mar, [facility] [place] [facility] [address] [id number] [place] [address]- 9696 Mar, [facility] [place] [facility] [address] [id number] [place] [address]- 5775 Mar, [facility] [place] [facility] [address] [id number] [place] [address]- 1115 Mar, [facility] [place] [facility] [address] [id number] [place] [address]- 7709 Mar, [facility] [place] [facility] [address] [id number], [place] [address]- 3989 Mar, [facility] [place] [facility] [address] [id number], [place] [address]- 8129 Mar, [facility] [place] [facility] [address] [id number], [place] [address]- 1531 Mar, [facility] [place] [facility] [address] [id number], [place] [address]- 3184 Mar, [facility] [place] [facility] [address] [id number], [place] [address]- 7599 Feb, [facility] [place] [facility] [address] [id number], [place] [address]- 7364 Feb, [facility] [place] [facility] [address] [id number], [place] [address]- 1975 Feb, [facility] [place] [facility] [address] [id number], [place] [address]- 7682 Feb, [facility] [place] [facility] [address] [id number] [place] [address]- 9243 Jan, [facility] [place] [facility] [address] [id number] [place] [address]- 5854 Jan, [facility] [place] [facility] [address] [id number] [place] [address]- 1058 Jan, [facility] [place] [facility] [address] [id number] [place] [address]- 7053 Jan, [facility] [place] [facility] [address] [id number] [place] [address]- 9255 Dec, [facility] [place] [facility] [address] [id number] [place] [address]- 3112 Dec, [facility] [place] [facility] [address] [id number] [place] [address]- 6703 Dec, [facility] [place] [facility] [address] [id number] [place] [address]- 6285 Dec, [facility] [place] [facility] [address] [id number] [place] [address]- 4536 Dec, [facility] [place] [facility] [address] [id number] [place] [address]- 1798 Dec, [facility] [place] [facility] [address] [id number] [place] [address]- 0459 Nov, [facility] [place] [facility] [address] [id number] [place] [address]- 0801 Nov, [facility] [place] [facility] [address] [id number] [place] [address]- 6224 Nov, [facility] [place] [facility] [address] [id number] [place] [address]- 2005 Nov, [facility] [place] [facility] [address] [id number] [place] [address]- 3136 September, [facility] [place] [facility] [address] [id number] [place] [address]- 2655 September, [facility] [place] [facility] [address] [id number] [place] [address]- 5190 Jul, [facility] [place] [facility] [address] [id number] [place] [address]- 1569 Jul, [facility] [place] [facility] [address] [id number] [place] [address]- 2383 Jul, [facility] [place] [facility] [address] [id number] [place] [address]- 2807 Jul, [facility] [place] [facility] [address] [id number] [place] [address]- 7621 Jun, [facility] [place] [facility] [address] [id number] [place] [address]- 2790 Jun, [facility] [place] [facility] [address] [id number] [place] [address]- 9318 Jun, [facility] [place] [facility] [address] [id number] [place] [address]- 2473 Jun, [facility] [place] [facility] [address] [id number] [place] [address]- 3838 Jun, [facility] [place] [facility] [address] [id number] [place] [address]- 6939 Jun, [facility] [place] [facility] [address] [id number] [place] [address]- 2772 Jun, [facility] [place] [facility] [address] [id number] [place] [address]- 0993 Jun, [facility] [place] [facility] [address] [id number] [place] [address]- 1309 Jun, [facility] [place] [facility] [address] [id number] [place] [address]- 1141 Jun, [facility] [place] [facility] [address] [id number] [place] [address]- 2253 May, [facility] [place] [facility] [address] [id number] [place] [address]- 4683 May, [facility] [address] [id number] [place] [address]- 6458 Apr, [facility] [place] [facility] [address] [id number] [place] [address]- 6136 Apr, [facility] [address] [id number] [place] [address]- 1826 Apr, [facility] [place] [facility] [address] [id number] [place] [address]- 7139 Apr, [facility] [address] [id number] [place] [address]- 9137 Apr, [facility] [address] [id number] [place] [address]- 3394 Apr, [facility] [address] [id number] [place] [address]- 8894 Mar, [facility] [address] [id number] [place] [address]- 2801 Mar, [facility] [place] [facility] [address] [id number] [place] [address]- 3493 Feb, [facility] [address] [id number] [place] [address]- 5368 Jan, [facility] [place] [facility] [address] [id number] [place] [address] 2540 Jan, [facility] [place] [facility] [address] [id number] [place] [address]- 2540 Dec, [facility] [place] [facility] [address] [id number] [place] [address]- 5111 Dec, [facility] [place] [facility] [address] [id number] [place] [address]- 2546 Nov, [facility] [place] [facility] [address] [id number] [place] [address] 254 Nov, [facility] [place] [facility] [address] [id number] [place] [address]- 1675 Oct, [facility] [address] [id number] [place] [address]- 9491 September, [facility] [address] [id number] [place] [address]- 6046 September, [facility] [address] [id number] [place] [address]- 0778 Aug, [facility] [address] [id number] [place] [address]- 7142 Aug, [facility] [address] [id number] [place] [address]- 8991 Aug, [facility] [address] [id number] [place] [address]- 8151 Aug, [facility] [address] [id number] [place] [address]- 8949 Aug, [facility] [address] [id number] [place] [address]- 8156 Jun, [facility] [address] [id number] [place] [address]- 0846 Jun, [facility] [address] [id number] [place] [address]- 1976 Jun, [facility] [address] [id number], [place] [address]- 3287 May, [facility] [place] [facility] [address] [id number] [place] [address]- 0733 May, [facility] [place] [facility] [address] [id number] [place] [address]- 0646 Apr, [facility] [place] [facility] [address] [id number] [place] [address]- 1246 Mar, [facility] [address] [id number], [place] [address]- 5621 Mar, [facility] [place] [facility] [address] [id number] [place] [address]- 8175 Mar, [facility] [place] [facility] [address] [id number] [place] [address]- 1506 Mar, [facility] [place] [facility] [address] [id number] [place] [address]- 9956 Mar, [facility] [place] [facility] [address] [id number] [place] [address]- 5256 Mar, [facility] [place] [facility] [address] [id number] [place] [address]- 1570 Mar, [facility] [place] [facility] [address] [id number] [place] [address]- 0570 Mar, [facility] [place] [facility] [address] [facility] [id number] [place] [address]- 4247 Feb, [facility] [place] [facility] [address] [id number] [place] [address]- 9189 Feb, [facility] [place] [facility] [address] [facility] [id number] [place] [address]- 6693 Feb, [facility] [place] [facility] [address] [facility] [id number] [place] [address]- 6754 Feb, [facility] [place] [facility] [address] [id number] [place] [address]- 3674 Dec, [facility] [place] [facility] [address] [id number], [place] [address]- 1084 Nov, [facility] [place] [facility] [address] [id number] [place] [address]- 4878 Nov, [facility] [place] [facility] [address] [facility] [id number] [place] [address]- 7701 Nov, [facility] [place] [facility] [address] [facility] [id number] [place] [address]- 6606 Nov, [facility] [place] [facility] [address] [facility] [id number] [place] [id number] 1188 Nov, [facility] [address] [facility] [id number] [place] [address]- 1594 Nov, IMMUNIZATIONS No Known Immunizations SOCIAL HISTORY Never Assessed REASON FOR VISIT 1 WK TE PLAN OF CARE Activity Details Follow Up prn Reason:MARYSOL with HYG VITAL SIGNS Heart Rate 72 bpm 2016-10-15 Blood pressure systolic 135 mmHg 2016-10-15 Blood pressure diastolic 90 mmHg 2016-10-15 MEDICATIONS Medication Instructions Dosage Frequency Start Date End Date Duration Status Atrovent HFA 17 mcg/actuation 2 puffs 6h Jun, Active Ventolin HFA 108 (90 Base) MCG/ACT Inhalation 4 times a day 2 puffs as needed 6h Active Omeprazole 40 MG Orally Once a day 1 capsule 24h Jun, 30 day(s ) Active Tessalon Perles 100 mg Orally Three times a day 1 capsule as needed 8h Jun, Active Tramadol HCl 50 mg Orally every 6 hrs 1 tablet as needed 6h Aug, Active Benzonatate 100 mg Orally Three times a day 1 capsule as needed 8h Aug, Active Ondansetron 8 MG DISSOLVE ONE TABLET UNDER TONGUE EVERY 8 HOURS NEEDED FOR NAUSEA OR VOMITING 10 Active Nitroglycerin 0.4 MG Sublingual 3 times a day, prn cp as directed Feb Active Singulair 10 MG Orally Once a day 1 tablet in the evening 24h 30 Active C-PAP Supplies & Tubing as directed Aug, Active Aspirin EC 81 MG Orally Once a day 1 tablet 24h Active Flonase 50 MCG/ACT Nasally Once a day 1 spray in each nostril 24h Dec, Active Prilosec OTC 20 mg Orally Once a day 1 tablet 24h Active Loratadine 10 mg take 1 tablet by Oral route 1 time per day take at hs Dec, Active Metoprolol Tartrate 100 MG Orally Twice a day 2 tablets 12h 30 Mar, 2015 30 day(s) Active Tudorza Pressair 400 mcg/actuation Inhalation Twice a day 1 puff 12h Jun Active Lasix 20 MG Orally Once a day 1 tablet 24h Active RESULTS No Results PROCEDURES Procedure Date Ordered Result Body Site SURG REMOVAL ERUPTED TOOTH October 15, 2016 INSTRUCTIONS MEDICATIONS ADMINISTERED No Known Medications MEDICAL (GENERAL) HISTORY Type Description Date Medical History COPD Medical History hypertension Surgical History sinus surgery 2013 Surgical History bladder cancer 2006 Surgical History angiogram 05/2014 Hospitalization History surgeries Hospitalization History hypertension 05/2014 Hospitalization History chest pain, hypertension 02/13/2016
--- OUTSIDE RECORDS SUMMARY | 2018-07-10 05:48 | XMS REPORT | Continuity of Care Document ---
Author Author [facility] Address Unknown Phone Unavailable Allergies Active Description Code Type Severity Reaction Onset Reported/Identified Relationship to Patient Clinical Status Yes NKANo Known Allergies NKA Miscellaneous Allergy Unknown N/A 12/08/2006 Yes green beans green beans Severe ANAPHYLAXIS 11/17/2011 Yes ondansetron HCl [id number] Drug Allergy Severe ANAPHYLAXIS 11/17/2011 Yes No Known Drug Allergies [id number] Drug Allergy Unknown N/A 05/07/2014 Medications There is no data. Problems Date Dx Coded Attending Type Code Diagnosis Diagnosed By 11/08/2011 Ot 250.00 DIAB MONO WO COMPL, TYPE II OR UNSPEC TY 11/08/2011 Ot 486 PNEUMONIA, ORGANISM NOS 11/08/2011 Ot 780.79 OTH MALAISE FATIGUE 11/13/2011 LYNN JACOBO APRN 486 PNEUMONIA UNSPECIFIED 11/13/2011 486 PNEUMONIA UNSPECIFIED 11/13/2011 486 PNEUMONIA UNSPECIFIED 11/13/2011 486 PNEUMONIA UNSPECIFIED 11/13/2011 486 PNEUMONIA UNSPECIFIED 11/13/2011 486 PNEUMONIA UNSPECIFIED 11/13/2011 486 PNEUMONIA UNSPECIFIED 11/13/2011 LYNN JACOBO APRN 486 PNEUMONIA UNSPECIFIED 11/13/2011 LYNN JACOBO APRN 486 PNEUMONIA UNSPECIFIED 11/13/2011 YENI BUNDY MD 486 PNEUMONIA UNSPECIFIED 11/13/2011 LYNN JACOBO APRN 486 PNEUMONIA UNSPECIFIED 11/13/2011 LYNN JACOBO APRN 486 PNEUMONIA UNSPECIFIED 11/13/2011 LYNN JACOBO APRN 486 PNEUMONIA UNSPECIFIED 11/13/2011 LYNN JACOBO APRN 486 PNEUMONIA UNSPECIFIED 11/13/2011 LYNN JACOBO APRN 486 PNEUMONIA UNSPECIFIED 11/13/2011 ELAN PEREIRA, JEET Tripp 486 PNEUMONIA UNSPECIFIED 11/13/2011 LYNN JACOBO APRN 486 PNEUMONIA UNSPECIFIED 11/13/2011 LYNN JACOBO APRN 486 PNEUMONIA UNSPECIFIED 11/17/2011 Ot 278.01 MORBID OBESITY 11/17/2011 Ot 305.20 CANNABIS ABUSE-UNSPEC 11/17/2011 Ot 486 PNEUMONIA, ORGANISM NOS 11/17/2011 Ot 491.21 OBSTR CHRONIC BRONCHITIS, W (ACUTE) EXAC 11/17/2011 Ot 790.29 OTHER ABNORMAL GLUCOSE 11/17/2011 Ot 799.02 HYPOXEMIA 11/17/2011 Ot E932.0 ADV EFF CORTICOSTEROIDS 11/17/2011 Ot V10.51 HX OF BLADDER MALIGNANCY 11/17/2011 Ot V85.41 BODY MASS INDEX 40.0-44.9, ADULT 11/25/2011 LYNN JACOBO APRN 496 COPD 11/25/2011 496 COPD 11/25/2011 496 COPD 11/25/2011 496 COPD 11/25/2011 496 COPD 11/25/2011 496 COPD 11/25/2011 496 COPD 11/25/2011 LYNN JACOBO APRN 496 COPD 11/25/2011 LYNN JACOBO APRN 496 COPD 11/25/2011 YENI BUNDY MD 496 COPD 11/25/2011 ODALIS GARZA, LYNN Bush 496 COPD 11/25/2011 LYNN JACOBO APRN 496 COPD 11/25/2011 LYNN JACOBO APRN T 496 COPD 11/25/2011 ODALIS GARZA, LYNN T 496 COPD 11/25/2011 ODALIS GARZA, LYNN T 496 COPD 11/25/2011 ELAN PEREIRA, JEET Tripp 496 COPD 11/25/2011 LYNN JACOBO APRN T 496 COPD 11/25/2011 LYNN JACOBO APRN 496 COPD 2012 LYNN JACOBO APRN V04.81 FLU DX (3 YRS AND ABOVE, IM) 2012 V04.81 FLU DX (3 YRS AND ABOVE, IM) 2012 V04.81 FLU DX (3 YRS AND ABOVE, IM) 2012 V04.81 FLU DX (3 YRS AND ABOVE, IM) 2012 V04.81 FLU DX (3 YRS AND ABOVE, IM) 2012 V04.81 FLU DX (3 YRS AND ABOVE, IM) 2012 V04.81 FLU DX (3 YRS AND ABOVE, IM) 2012 LYNN JACOBO APRN V04.81 FLU DX (3 YRS AND ABOVE, IM) 2012 ODALIS TYPING BOOKKEEPER, LYNN T V04.81 FLU DX (3 YRS AND ABOVE, IM) 2012 YENI BUNDY MD V04.81 FLU DX (3 YRS AND ABOVE, IM) 2012 LYNN JACOBO APRN T V04.81 FLU DX (3 YRS AND ABOVE, IM) 2012 LYNN JACOBO APRN T V04.81 FLU DX (3 YRS AND ABOVE, IM) 2012 LYNN JACOBO APRN T V04.81 FLU DX (3 YRS AND ABOVE, IM) 2012 LYNN JACOBO APRN T V04.81 FLU DX (3 YRS AND ABOVE, IM) 2012 LYNN JACOBO APRN T V04.81 FLU DX (3 YRS AND ABOVE, IM) 2012 JEET ANSARI MD V04.81 FLU DX (3 YRS AND ABOVE, IM) 2012 LYNN JACOBO APRN T V04.81 FLU DX (3 YRS AND ABOVE, IM) 2012 LYNN JACOBO APRN T V04.81 FLU DX (3 YRS AND ABOVE, IM) 04/05/2012 LYNN JACOBO APRN T 790.29 HYPERGLYCEMIA 04/05/2012 790.29 HYPERGLYCEMIA 04/05/2012 790.29 HYPERGLYCEMIA 04/05/2012 790.29 HYPERGLYCEMIA 04/05/2012 790.29 HYPERGLYCEMIA 04/05/2012 790.29 HYPERGLYCEMIA 04/05/2012 790.29 HYPERGLYCEMIA 04/05/2012 LYNN JACOBO APRN T 790.29 HYPERGLYCEMIA 04/05/2012 LYNN JACOBO APRN T 790.29 HYPERGLYCEMIA 04/05/2012 YENI BUNDY MD 790.29 HYPERGLYCEMIA 04/05/2012 LYNN JACOBO APRN T 790.29 HYPERGLYCEMIA 04/05/2012 LYNN JACOBO APRN T 790.29 HYPERGLYCEMIA 04/05/2012 LYNN JACOBO APRN T 790.29 HYPERGLYCEMIA 04/05/2012 LYNN JACOBO APRN T 790.29 HYPERGLYCEMIA 04/05/2012 LYNN JACOBO APRN T 790.29 HYPERGLYCEMIA 04/05/2012 JEET ANSARI MD 790.29 HYPERGLYCEMIA 04/05/2012 LYNN JACOBO APRN T 790.29 HYPERGLYCEMIA 04/05/2012 LYNN JACOBO APRN T 790.29 HYPERGLYCEMIA 06/14/2012 466.0 BRONCHITIS, ACUTE 06/14/2012 786.2 COUGH 06/14/2012 466.0 BRONCHITIS, ACUTE 06/14/2012 786.2 COUGH 06/14/2012 466.0 BRONCHITIS, ACUTE 06/14/2012 786.2 COUGH 06/14/2012 466.0 BRONCHITIS, ACUTE 06/14/2012 786.2 COUGH 06/14/2012 466.0 BRONCHITIS, ACUTE 06/14/2012 786.2 COUGH 06/14/2012 ODALIS TYPING BOOKKEEPER, LYNN T 466.0 BRONCHITIS, ACUTE 06/14/2012 ODALIS TYPING BOOKKEEPER, LYNN T 786.2 COUGH 06/14/2012 ODALIS TYPING BOOKKEEPER, LYNN T 466.0 BRONCHITIS, ACUTE 06/14/2012 ODALIS TYPING BOOKKEEPER, LYNN T 786.2 COUGH 06/14/2012 YENI BUNDY MD 466.0 BRONCHITIS, ACUTE 06/14/2012 YENI BUNDY MD 786.2 COUGH 06/14/2012 ODALIS TYPING BOOKKEEPER, LYNN T 466.0 BRONCHITIS, ACUTE 06/14/2012 ODALIS TYPING BOOKKEEPER, LYNN T 786.2 COUGH 06/14/2012 ODALIS TYPING BOOKKEEPER, LYNN T 466.0 BRONCHITIS, ACUTE 06/14/2012 ODALIS TYPING BOOKKEEPER, LYNN T 786.2 COUGH 06/14/2012 ODALIS TYPING BOOKKEEPER, LYNN T 466.0 BRONCHITIS, ACUTE 06/14/2012 ODALIS TYPING BOOKKEEPER, LYNN T 786.2 COUGH 06/14/2012 ODALIS TYPING BOOKKEEPER, LYNN T 466.0 BRONCHITIS, ACUTE 06/14/2012 ODALIS TYPING BOOKKEEPER, LYNN T 786.2 COUGH 06/14/2012 ODALIS TYPING BOOKKEEPER, LYNN T 466.0 BRONCHITIS, ACUTE 06/14/2012 ODALIS TYPING BOOKKEEPER, LYNN T 786.2 COUGH 06/14/2012 JEET ANSARI MD N 466.0 BRONCHITIS, ACUTE 06/14/2012 JEET ANSARI MD N 786.2 COUGH 06/14/2012 ODALIS TYPING BOOKKEEPER, LYNN T 466.0 BRONCHITIS, ACUTE 06/14/2012 ODALIS TYPING BOOKKEEPER, LYNN T 786.2 COUGH 06/14/2012 ODALIS TYPING BOOKKEEPER, LYNN T 466.0 BRONCHITIS, ACUTE 06/14/2012 ODALIS TYPING BOOKKEEPER, LYNN T 786.2 COUGH 08/23/2012 729.5 PAIN IN LIMB 08/23/2012 729.5 PAIN IN LIMB 08/23/2012 729.5 PAIN IN LIMB 08/23/2012 729.5 PAIN IN LIMB 08/23/2012 ODALIS GARZA, LYNN T 729.5 PAIN IN LIMB 08/23/2012 ODALIS GARZA, LYNN T 729.5 PAIN IN LIMB 08/23/2012 YENI BUNDY MD 729.5 PAIN IN LIMB 08/23/2012 ODALIS GARZA, LYNN T 729.5 PAIN IN LIMB 08/23/2012 ODALIS GARZA, LYNN T 729.5 PAIN IN LIMB 08/23/2012 LYNN JACOBO APRN T 729.5 PAIN IN LIMB 08/23/2012 ODALIS GARZA LYNN T 729.5 PAIN IN LIMB 08/23/2012 ODALIS GARZA, LYNN T 729.5 PAIN IN LIMB 08/23/2012 ELAN PEREIRA, JEET Tripp 729.5 PAIN IN LIMB 08/23/2012 LYNN JACOBO APRN T 729.5 PAIN IN LIMB 08/23/2012 ODALIS GARZA, LYNN T 729.5 PAIN IN LIMB 09/07/2012 465.9 UPPER RESPIRATORY INFECTION 09/07/2012 701.9 SKIN TAG 09/07/2012 465.9 UPPER RESPIRATORY INFECTION 09/07/2012 701.9 SKIN TAG 09/07/2012 465.9 UPPER RESPIRATORY INFECTION 09/07/2012 701.9 SKIN TAG 09/07/2012 ODALIS GARZA LYNN T 465.9 UPPER RESPIRATORY INFECTION 09/07/2012 ODALIS GARZA LYNN T 701.9 SKIN TAG 09/07/2012 ODALIS GARZA LYNN T 465.9 UPPER RESPIRATORY INFECTION 09/07/2012 ODALIS GARZA LYNN T 701.9 SKIN TAG 09/07/2012 YENI BUNDY MD 465.9 UPPER RESPIRATORY INFECTION 09/07/2012 YENI BUNDY MD 701.9 SKIN TAG 09/07/2012 ODALIS GARZA LYNN T 465.9 UPPER RESPIRATORY INFECTION 09/07/2012 ODALIS GARZA, LYNN T 701.9 SKIN TAG 09/07/2012 ODALIS GARZA LYNN T 465.9 UPPER RESPIRATORY INFECTION 09/07/2012 ODALIS GARZA LYNN T 701.9 SKIN TAG 09/07/2012 ODALIS GARZA LYNN T 465.9 UPPER RESPIRATORY INFECTION 09/07/2012 ODALIS GARZA LYNN T 701.9 SKIN TAG 09/07/2012 ODALIS GARZA LYNN T 465.9 UPPER RESPIRATORY INFECTION 09/07/2012 ODALIS GARZA LYNN T 701.9 SKIN TAG 09/07/2012 ODALIS TYPING BOOKKEEPER, LYNN T 465.9 UPPER RESPIRATORY INFECTION 09/07/2012 ODALIS TYPING BOOKKEEPER, LYNN T 701.9 SKIN TAG 09/07/2012 ELAN PEREIRA, JEET N 465.9 UPPER RESPIRATORY INFECTION 09/07/2012 ELAN PEREIRA, JEET N 701.9 SKIN TAG 09/07/2012 ODALIS TYPING BOOKKEEPER, LYNN T 465.9 UPPER RESPIRATORY INFECTION 09/07/2012 ODALIS TYPING BOOKKEEPER, LYNN T 701.9 SKIN TAG 09/07/2012 ODALIS TYPING BOOKKEEPER, LYNN T 465.9 UPPER RESPIRATORY INFECTION 09/07/2012 ODALIS TYPING BOOKKEEPER, LYNN T 701.9 SKIN TAG 04/11/2013 ODALIS TYPING BOOKKEEPER, LYNN T 477.9 RHINITIS 04/11/2013 YENI BUNDY MD 477.9 RHINITIS 04/11/2013 ODALIS TYPING BOOKKEEPER, LYNN T 477.9 RHINITIS 04/11/2013 ODALIS TYPING BOOKKEEPER, LYNN T 477.9 RHINITIS 04/11/2013 ODALIS TYPING BOOKKEEPER, LYNN T 477.9 RHINITIS 04/11/2013 ODALIS TYPING BOOKKEEPER, LYNN T 477.9 RHINITIS 04/11/2013 ODALIS TYPING BOOKKEEPER, LYNN T 477.9 RHINITIS 04/11/2013 ELAN PEREIRA, JEET N 477.9 RHINITIS 04/11/2013 ODALIS TYPING BOOKKEEPER, LYNN T 477.9 RHINITIS 04/11/2013 ODALIS TYPING BOOKKEEPER, LYNN T 477.9 RHINITIS 05/07/2014 ROLA BARREAR DO Ot 278.01 05/07/2014 ROLA BARRERA DO Ot 473.9 05/07/2014 ROLA BARRERA DO Ot 496 05/07/2014 ROLA BARRERA DO Ot 786.05 05/07/2014 LYNN JACOBO CUSTOMER SUCCESS INTERN Ot 465.9 05/07/2014 LYNN JACOBO CUSTOMER SUCCESS INTERN Ot 473.0 05/07/2014 LYNN JACOBO CUSTOMER SUCCESS INTERN Ot 473.2 05/07/2014 LYNN JACOBO CUSTOMER SUCCESS INTERN Ot 477.9 05/09/2014 ROLA BARRERA DO Ot 278.01 05/09/2014 ROLA BARRERA DO Ot 473.9 05/09/2014 ROLA BARRERA DO Ot 496 05/09/2014 ROLA BARRERA DO Ot 786.05 05/09/2014 LYNN JACOBO CUSTOMER SUCCESS INTERN Ot 465.9 05/09/2014 LYNN JACOBO CUSTOMER SUCCESS INTERN Ot 473.0 05/09/2014 LYNN JACOBO CUSTOMER SUCCESS INTERN Ot 473.2 05/09/2014 LYNN JACOBO CUSTOMER SUCCESS INTERN Ot 477.9 05/09/2014 JEET ANSARI MD Ot 278.01 MORBID OBESITY 05/09/2014 JEET ANSARI MD Ot 327.23 OBSTRUCTIVE SLEEP APNEA (ADULT) (PEDIATR 05/09/2014 JEET ANSARI MD Ot 401.9 HYPERTENSION NOS 05/09/2014 JEET ANSARI MD Ot 496 CHR AIRWAY OBSTRUCT NEC 05/09/2014 JEET ANSARI MD Ot 530.81 ESOPHAGEAL REFLUX 05/09/2014 JEET ANSARI MD Ot 786.50 CHEST PAIN NOS 05/09/2014 JEET ANSARI MD Ot V15.82 HISTORY OF TOBACCO USE 05/09/2014 JEET ANSARI MD Ot V58.69 OTH MED,LT,CURRENT USE 05/09/2014 JEET ANSARI MD Ot V85.41 BODY MASS INDEX 40.0-44.9, ADULT 05/23/2014 LYNN JACOBO APRN T 278.00 OBESITY 05/23/2014 JEET ANSARI MD 278.00 OBESITY 05/23/2014 LYNN JACOBO APRN 278.00 OBESITY 05/23/2014 LYNN JACOBO APRN T 278.00 OBESITY 08/15/2014 LYNN JACOBO APRN T 466.0 BRONCHITIS, ACUTE 07/12/2015 ROLA BARRERA DO Ot 278.01 07/12/2015 ROLA BARRERA DO Ot 473.9 07/12/2015 ROLA BARRERA DO Ot 496 07/12/2015 ROLA BARRERA DO Ot 786.05 07/12/2015 LYNN JACOBO CUSTOMER SUCCESS INTERN Ot 465.9 07/12/2015 LYNN JACOBO CUSTOMER SUCCESS INTERN Ot 473.0 07/12/2015 LYNN JACOBO CUSTOMER SUCCESS INTERN Ot 473.2 07/12/2015 LYNN JACOBO CUSTOMER SUCCESS INTERN Ot 477.9 07/12/2015 LUCAS ROWELL MD Ot J44.9 07/12/2015 LUCAS ROWELL MD Ot R06.00 07/12/2015 LUCAS ROWELL MD Ot R07.9 07/12/2015 LELIA PEREIRA, LUCAS Khanna Ot E78.2 07/12/2015 LELIA PEREIRA, LUCAS Khanna Ot I10 07/12/2015 LUCAS ROWELL MD Ot J44.9 07/12/2015 LELIA PEREIRA, LUCAS Khanna Ot R06.00 07/12/2015 LUCAS ROWELL MD Ot R07.9 07/12/2015 LUCAS ROWELL MD Ot E78.2 07/12/2015 LUCAS ROWELL MD Ot I10 07/12/2015 LUCAS ROWELL MD Ot J44.9 07/12/2015 LELIA PEREIRA, LUCAS Khanna Ot R06.00 07/12/2015 LUCAS ROWELL MD Ot R07.9 10/23/2015 LUCAS ROWELL MD Ot J44.9 CHRONIC OBSTRUCTIVE PULMONARY DISEASE, U 10/23/2015 LUCAS ROWELL MD J Ot R06.00 DYSPNEA, UNSPECIFIED 10/23/2015 LUCAS ROWELL MD Ot R07.9 CHEST PAIN, UNSPECIFIED 10/23/2015 LELIA PEREIRA, LUCAS Khanna Ot E78.2 MIXED HYPERLIPIDEMIA 10/23/2015 LELIA PEREIRA, LUCAS J Ot I10 ESSENTIAL (PRIMARY) HYPERTENSION 10/23/2015 LUCAS ROWELL MD Ot J44.9 CHRONIC OBSTRUCTIVE PULMONARY DISEASE, U 10/23/2015 LUCAS ROWELL MD Ot R06.00 DYSPNEA, UNSPECIFIED 10/23/2015 LUCAS ROWELL MD Ot R07.9 CHEST PAIN, UNSPECIFIED 02/13/2016 ROLA BARRERA DO Ot 278.01 MORBID OBESITY 02/13/2016 ROLA BARRERA DO Ot 473.9 CHRONIC SINUSITIS NOS 02/13/2016 ROLA BARRERA DO Ot 496 CHR AIRWAY OBSTRUCT NEC 02/13/2016 ROLA BARRERA DO Ot 786.05 SHORTNESS OF BREATH 02/13/2016 LYNN JACOBO CUSTOMER SUCCESS INTERN Ot 465.9 ACUTE URI NOS 02/13/2016 LYNN JACOBOP Ot 473.0 CHR MAXILLARY SINUSITIS 02/13/2016 LYNN JACOBO CUSTOMER SUCCESS INTERN Ot 473.2 CHR ETHMOIDAL SINUSITIS 02/13/2016 LYNN JACOBOP Ot 477.9 ALLERGIC RHINITIS NOS 02/13/2016 LUCAS ROWELL MD Ot J44.9 CHRONIC OBSTRUCTIVE PULMONARY DISEASE, U 02/13/2016 LUCAS ROWELL MD Ot R06.00 DYSPNEA, UNSPECIFIED 02/13/2016 LUCAS ROWELL MD Ot R07.9 CHEST PAIN, UNSPECIFIED 02/13/2016 LUCAS ROWELL MD Ot E78.2 MIXED HYPERLIPIDEMIA 02/13/2016 LUCAS ROWELL MD Ot I10 ESSENTIAL (PRIMARY) HYPERTENSION 02/13/2016 LUCAS ROWELL MD Ot J44.9 CHRONIC OBSTRUCTIVE PULMONARY DISEASE, U 02/13/2016 LUCAS ROWELL MD Ot R06.00 DYSPNEA, UNSPECIFIED 02/13/2016 LUCAS ROWELL MD Ot R07.9 CHEST PAIN, UNSPECIFIED 02/13/2016 ROLA BARRERA DO Ot 278.01 MORBID OBESITY 02/13/2016 ROLA BARRERA DO Ot 473.9 CHRONIC SINUSITIS NOS 02/13/2016 ROLA BARRERA DO Ot 496 CHR AIRWAY OBSTRUCT NEC 02/13/2016 ROLA BARRERA DO Ot 786.05 SHORTNESS OF BREATH 02/13/2016 LYNN JACOBO CUSTOMER SUCCESS INTERN Ot 465.9 ACUTE URI NOS 02/13/2016 LYNN JACOBO CUSTOMER SUCCESS INTERN Ot 473.0 CHR MAXILLARY SINUSITIS 02/13/2016 LYNN JACOBO CUSTOMER SUCCESS INTERN Ot 473.2 CHR ETHMOIDAL SINUSITIS 02/13/2016 LYNN JACOBO CUSTOMER SUCCESS INTERN Ot 477.9 ALLERGIC RHINITIS NOS 02/13/2016 LUCAS ROWELL MD Ot J44.9 CHRONIC OBSTRUCTIVE PULMONARY DISEASE, U 02/13/2016 LUCAS ROWELL MD Ot R06.00 DYSPNEA, UNSPECIFIED 02/13/2016 LUCAS ROWELL MD Ot R07.9 CHEST PAIN, UNSPECIFIED 02/13/2016 LUCAS ROWELL MD Ot E78.2 MIXED HYPERLIPIDEMIA 02/13/2016 LUCAS ROEWLL MD Ot I10 ESSENTIAL (PRIMARY) HYPERTENSION 02/13/2016 LUCAS ROWELL MD Ot J44.9 CHRONIC OBSTRUCTIVE PULMONARY DISEASE, U 02/13/2016 LUCAS ROWELL MD Ot R06.00 DYSPNEA, UNSPECIFIED 02/13/2016 LUCAS ROWELL MD Ot R07.9 CHEST PAIN, UNSPECIFIED 02/13/2016 JUDD CASTILLO MD Ot F41.9 ANXIETY DISORDER, UNSPECIFIED 02/13/2016 JUDD CASTILLO MD Ot G47.30 SLEEP APNEA, UNSPECIFIED 02/13/2016 JUDD CASTILLO MD Ot I10 ESSENTIAL (PRIMARY) HYPERTENSION 02/13/2016 JUDD CASTILLO MD Ot J44.9 CHRONIC OBSTRUCTIVE PULMONARY DISEASE, U 02/13/2016 JUDD CASTILLO MD Ot R07.9 CHEST PAIN, UNSPECIFIED 02/13/2016 JUDD CASTILLO MD, Ot F41.9 ANXIETY DISORDER, UNSPECIFIED 02/13/2016 JUDD CASTILLO MD Ot G47.30 SLEEP APNEA, UNSPECIFIED 02/13/2016 JUDD CASTILLO MD, Ot I10 ESSENTIAL (PRIMARY) HYPERTENSION 02/13/2016 JUDD CASTILLO MD, Ot J44.9 CHRONIC OBSTRUCTIVE PULMONARY DISEASE, U 02/13/2016 JUDD CASTILLO MD, Ot R07.9 CHEST PAIN, UNSPECIFIED Procedures Code Description [place] [address] A1C (IN-HOUSE) 04/05/2012 76801 ROUTINE VENIPUNCTURE 08/23/2012 46173 CBC 08/23/2012 72707 CMP 08/23/2012 33723 LIPID PANEL 08/23/2012 1394083 GFR CALC (RESULT ONLY) 08/23/2012 19487 A1C (L) 08/23/2012 32778 SKIN TAG REM 1-15 09/22/2012 10053 OXIMETRY 12/19/2012 95856 A1C (IN-HOUSE) 12/19/2012 35496 OXIMETRY 04/11/2013 J2930 SOLUMEDROL INJ 04/11/2013 54398 THERAPUTIC INJ SQ/IM 04/11/2013 12183 A1C (IN-HOUSE) 04/21/2013 77054 OXIMETRY 04/24/2013 59212 THERAPUTIC INJ SQ/IM 11/27/2013 J2930 SOLUMEDROL INJ 11/27/[address] SINUS W/O CONTRAST 11/28/2013 30238 A1C (IN-HOUSE) 05/23/2014 23888 OXIMETRY 08/15/2014 Results Test Result Range Complete blood count (CBC) with automated white blood cell (WBC) differential - 02/13/16 05:11 Blood leukocytes automated count (number/volume) 11.5 10*3/uL 4.3-11.0 Blood erythrocytes automated count (number/volume) 4.96 10*6/uL 4.35-5.85 Venous blood hemoglobin measurement (mass/volume) 15.4 g/dL 13.3-17.7 Blood hematocrit (volume fraction) 45 % 40-54 Automated erythrocyte mean corpuscular volume 91 [foz_us] 80-99 Automated erythrocyte mean corpuscular hemoglobin (mass per erythrocyte) 31 pg 25-34 Automated erythrocyte mean corpuscular hemoglobin concentration measurement ( mass/volume) 34 g/dL 32-36 Automated erythrocyte distribution width ratio 15.2 % 10.0-14.5 Automated blood platelet count (count/volume) 249 10*3/uL 130-400 Automated blood platelet mean volume measurement 12.2 [foz_us] 7.4-10.4 Automated blood neutrophils/100 leukocytes 57 % 42-75 Automated blood lymphocytes/100 leukocytes 28 % 12-44 Blood monocytes/100 leukocytes 11 % 0-12 Automated blood eosinophils/100 leukocytes 3 % 0-10 Automated blood basophils/100 leukocytes 1 % 0-10 Blood neutrophils automated count (number/volume) 6.5 10*3 1.8-7.8 Blood lymphocytes automated count (number/volume) 3.2 10*3 1.0-4.0 Blood monocytes automated count (number/volume) 1.3 10*3 0.0-1.0 Automated eosinophil count 0.4 10*3/uL 0.0-0.3 Automated blood basophil count (count/volume) 0.1 10*3/uL 0.0-0.1 PT panel in platelet poor plasma by coagulation assay - 02/13/16 05:11 Prothrombin time (PT) in platelet poor plasma by coagulation assay 12.1 s 12.2-14.7 INR in platelet poor plasma or blood by coagulation assay 0.9 0.8-1.4 Activated partial thromboplastin time (aPTT) in platelet poor plasma bycoagulation assay - 02/13/16 05:11 Activated partial thromboplastin time (aPTT) in platelet poor plasma bycoagulation assay 34 s 24-35 Comprehensive metabolic panel - 02/13/16 05:11 Serum or plasma sodium measurement (moles/volume) 141 mmol/L 135-145 Serum or plasma potassium measurement (moles/volume) 4.0 mmol/L 3.6-5.0 Serum or plasma chloride measurement (moles/volume) 108 mmol/L 98-107 Carbon dioxide 17 mmol/L 21-32 Serum or plasma anion gap determination (moles/volume) 16 mmol/L 5-14 Serum or plasma urea nitrogen measurement (mass/volume) 15 mg/dL 7-18 Serum or plasma creatinine measurement (mass/volume) 0.98 mg/dL 0.60-1.30 Serum or plasma urea nitrogen/creatinine mass ratio 15 NRG Serum or plasma creatinine measurement with calculation of estimated glomerular filtration rate > NRG Serum or plasma glucose measurement (mass/volume) 102 mg/dL 70-105 Serum or plasma calcium measurement (mass/volume) 9.8 mg/dL 8.5-10.1 Serum or plasma total bilirubin measurement (mass/volume) 0.4 mg/dL 0.1-1.0 Serum or plasma alkaline phosphatase measurement (enzymatic activity/volume) 102 U/L 40-136 Serum or plasma aspartate aminotransferase measurement (enzymatic activity/ volume) 19 U/L 5-34 Serum or plasma alanine aminotransferase measurement (enzymatic activity/volume ) 29 U/L 0-55 Serum or plasma protein measurement (mass/volume) 8.0 g/dL 6.4-8.2 Serum or plasma albumin measurement (mass/volume) 4.4 g/dL 3.2-4.5 Magnesium - 02/13/16 05:11 Magnesium 2.4 mg/dL 1.8-2.4 Serum or plasma creatine kinase measurement (enzymatic activity/volume) - 02/12 05:11 Serum or plasma creatine kinase measurement (enzymatic activity/volume) 188 U/L 30-200 Serum or plasma creatine kinase MB measurement (enzymatic activity/volume) - 05:11 Serum or plasma creatine kinase MB measurement (enzymatic activity/volume) 1.5 ng/mL <6.6 Serum or plasma troponin i.cardiac measurement (mass/volume) - 02/13/16 05:11 Serum or plasma troponin i.cardiac measurement (mass/volume) < ng/ mL <0.30 Serum or plasma amylase measurement (enzymatic activity/volume) - 02/13/16 05: 11 Serum or plasma amylase measurement (enzymatic activity/volume) 80 U /L 25-125 Lipase - 02/13/16 05:11 Lipase 52 U/L 8-78 Serum or plasma lithium measurement (moles/volume) - 02/13/16 05:11 BNP level 21.7 pg/mL <100.0 Serum or plasma troponin i.cardiac measurement (mass/volume) - 02/13/16 11:19 Serum or plasma troponin i.cardiac measurement (mass/volume) < ng/ mL <0.30 Myoglobin, serum - 02/13/16 11:19 Myoglobin, serum 44.2 ng/mL 10.0-92.0 Lipid 1996 panel - 02/13/16 11:19 Serum or plasma triglyceride measurement (mass/volume) 129 mg/dL <150 Serum or plasma cholesterol measurement (mass/volume) 179 mg/dL < 200 Serum or plasma cholesterol in HDL measurement (mass/volume) 44 mg/ dL 40-60 Cholesterol in LDL [mass/volume] in serum or plasma by direct assay 116 mg/dL 1-129 Serum or plasma cholesterol in VLDL measurement (mass/volume) 26 mg/ dL 5-40 Complete blood count (CBC) with automated white blood cell (WBC) differential - 07/08/18 00:10 Blood leukocytes automated count (number/volume) 14.4 10*3/uL 4.3-11.0 Blood erythrocytes automated count (number/volume) 4.91 10*6/uL 4.35-5.85 Venous blood hemoglobin measurement (mass/volume) 15.4 g/dL 13.3-17.7 Blood hematocrit (volume fraction) 45 % 40-54 Automated erythrocyte mean corpuscular volume 92 [foz_us] 80-99 Automated erythrocyte mean corpuscular hemoglobin (mass per erythrocyte) 31 pg 25-34 Automated erythrocyte mean corpuscular hemoglobin concentration measurement ( mass/volume) 34 g/dL 32-36 Automated erythrocyte distribution width ratio 14.5 % 10.0-14.5 Automated blood platelet count (count/volume) 273 10*3/uL 130-400 Automated blood platelet mean volume measurement 11.4 [foz_us] 7.4-10.4 Automated blood neutrophils/100 leukocytes 61 % 42-75 Automated blood lymphocytes/100 leukocytes 27 % 12-44 Blood monocytes/100 leukocytes 8 % 0-12 Automated blood eosinophils/100 leukocytes 4 % 0-10 Automated blood basophils/100 leukocytes 1 % 0-10 Blood neutrophils automated count (number/volume) 8.8 10*3 1.8-7.8 Blood lymphocytes automated count (number/volume) 3.9 10*3 1.0-4.0 Blood monocytes automated count (number/volume) 1.1 10*3 0.0-1.0 Automated eosinophil count 0.5 10*3/uL 0.0-0.3 Automated blood basophil count (count/volume) 0.1 10*3/uL 0.0-0.1 Comprehensive metabolic panel - 07/08/18 00:10 Serum or plasma sodium measurement (moles/volume) 143 mmol/L 135-145 Serum or plasma potassium measurement (moles/volume) 3.9 mmol/L 3.6-5.0 Serum or plasma chloride measurement (moles/volume) 105 mmol/L 98-107 Carbon dioxide 24 mmol/L 21-32 Serum or plasma anion gap determination (moles/volume) 14 mmol/L 5-14 Serum or plasma urea nitrogen measurement (mass/volume) 19 mg/dL 7-18 Serum or plasma creatinine measurement (mass/volume) 1.12 mg/dL 0.60-1.30 Serum or plasma urea nitrogen/creatinine mass ratio 17 NRG Serum or plasma creatinine measurement with calculation of estimated glomerular filtration rate > NRG Serum or plasma glucose measurement (mass/volume) 94 mg/dL 70-105 Serum or plasma calcium measurement (mass/volume) 10.0 mg/dL 8.5-10.1 Serum or plasma total bilirubin measurement (mass/volume) 0.4 mg/dL 0.1-1.0 Serum or plasma alkaline phosphatase measurement (enzymatic activity/volume) 84 U/L 40-136 Serum or plasma aspartate aminotransferase measurement (enzymatic activity/ volume) 22 U/L 5-34 Serum or plasma alanine aminotransferase measurement (enzymatic activity/volume ) 23 U/L 0-55 Serum or plasma protein measurement (mass/volume) 8.5 g/dL 6.4-8.2 Serum or plasma albumin measurement (mass/volume) 4.6 g/dL 3.2-4.5 Serum or plasma lithium measurement (moles/volume) - 07/08/18 00:10 BNP level 28.6 pg/mL <100.0 Blood manual differential performed detection - 07/08/18 00:10 Blood monocytes/100 leukocytes 8 % NRG Manual blood segmented neutrophils/100 leukocytes 60 % NRG Manual blood lymphocytes/100 leukocytes 29 % NRG Manual eosinophils/100 leukocytes in nose 3 % NRG Encounters ACCT No. Visit Date/Time Discharge Status Pt. Type Provider Facility Loc./Unit Complaint [id number] 08/15/2014 18:01:00 08/15/2014 23:59:59 CLS Outpatient LYNN JACOBO APRN [id number] 06/22/2014 16:31:00 06/22/2014 23:59:59 CLS Outpatient LYNN JACOBO APRN [id number] 05/24/2014 14:13:00 05/24/2014 23:59:59 CLS Outpatient EJET ANSARI MD [id number] 05/23/2014 14:50:00 05/23/2014 23:59:59 CLS Outpatient LYNN JACOBO APRN [id number] 11/27/2013 15:46:00 11/27/2013 23:59:59 CLS Outpatient LYNN JACOBO APRN [id number] 08/20/2013 00:00:00 08/20/2013 23:59:59 CLS Outpatient LYNN JACOBO APRN [id number] 06/27/2013 16:40:00 06/27/2013 23:59:59 CLS Outpatient LYNN JACOBO APRN [id number] 04/25/2013 16:22:00 04/25/2013 23:59:59 CLS Outpatient LYNN JACOBO APRN [id number] 04/21/2013 15:40:00 04/21/2013 23:59:59 CLS Outpatient YNEI BUNDY MD [id number] 04/11/2013 16:19:00 04/11/2013 23:59:59 CLS Outpatient LYNN JACOBO APRN [id number] 01/16/2013 10:56:00 01/16/2013 23:59:59 CLS Outpatient LYNN JACOBO APRN [id number] 06/14/2012 18:44:00 06/14/2012 23:59:59 CLS Outpatient [id number] 04/05/2012 15:48:00 04/05/2012 23:59:59 CLS Outpatient [id number] 03/03/2012 09:40:00 03/03/2012 23:59:59 CLS Outpatient LYNN JACOBO APRN [id number] 12/19/2012 15:48:00 Document Registration [id number] 09/21/2012 18:22:00 Document Registration [id number] 09/07/2012 15:44:00 Document Registration [id number] 08/23/2012 15:09:00 Document Registration [id number] 04/21/2018 11:20:00 04/21/2018 23:59:59 CLS Outpatient LYNN JACOBO APRN [facility] [id number] 07/07/2018 23:52:00 07/08/2018 02:37:00 DIS Emergency WYATT LAURENT DO [facility] ER SOB [id number] 02/13/2016 06:54:00 02/13/2016 15:53:00 DIS Inpatient ANNA PEREIRA, JUDD Abdi [facility] ICU CHEST PAIN;HTN [id number] 06/03/2015 12:36:00 06/03/2015 23:59:59 CLS Outpatient LUCAS ROWELL MD [facility] CARD COPD,CP [id number] 05/23/2015 12:45:00 05/23/2015 23:59:59 CLS Outpatient LUCAS ROWELL MD [facility] LAB HLD,HTN,CHEST PAIN, DYSPNEA [id number] 05/07/2014 22:55:00 05/09/2014 10:00:00 DIS Outpatient ELAN PEREIRA, JEET Tripp [facility] CATH CHEST PAIN,HTN [id number] 12/28/2013 11:53:00 12/28/2013 23:59:59 CLS Outpatient LYNN JACOBO [employer]ER [employer] [facility] RAD URI,RHINITIS [id number] 09/19/2013 11:51:00 09/19/2013 23:59:59 CLS Outpatient ROLA BARRERA DO [facility] RAD SOB [id number] 08/23/2013 14:08:00 08/23/2013 23:59:59 CLS Outpatient ROLA BARRERA DO [facility] RT COPD,SINUSITIS,OBESITY [id number] 05/07/2014 19:31:00 Document Registration [id number] 11/16/2011 05:33:00 Document Registration [id number] 11/08/2011 07:55:00 Document Registration
== END 2018-07-08 02:37 | disposition home or self-care (01) ==
LOC: EDUNIT# 23:50 → ER 23:52
DX: J44.1 Chronic obstructive pulmonary disease with (acute) exacerbation (principal); R41.9 Unspecified symptoms and signs involving cognitive functions and awareness; G47.30 Sleep apnea, unspecified; I10 Essential (primary) hypertension; E66.9 Obesity, unspecified; Z77.098 Contact with and (suspected) exposure to other hazardous, chiefly nonmedicinal, chemicals; Z85.51 Personal history of malignant neoplasm of bladder; Z79.51 Long term (current) use of inhaled steroids; Z68.42 Body mass index [BMI] 45.0-49.9, adult; Z79.52 Long term (current) use of systemic steroids; Z87.891 Personal history of nicotine dependence; Z98.890 Other specified postprocedural states; Z95.9 Presence of cardiac and vascular implant and graft, unspecified
CPT/HCPCS: 36415; 71045; 80053; 83880; 85007; 85027; 93041; 96374

== ENCOUNTER 2020-09-09 16:17 | Emergency (ER) | payer SELFPAY ==
[~2020-09-09] VITALS: Ht 180.3 cm; Wt 122.0 kg
[~2020-09-09 16:17] MED LIST changes: -ACLI400A2 IH; +ACLI400A3 IH; +AMLO-251 PO; -AMLO10TA7 PO; +ASPI-1238 PO; -ASPI-983 PO; +METH4TAB PO; -MONT10TA24 PO; +MONT10TA32 PO
[2020-09-09 16:20] VITALS: BP 174/101
--- NOTE | 2020-09-09 16:32 | ED Chest Pain ---
General Chief Complaint: Cardiac/General Problems Stated Complaint: HTN ISSUES Source: patient Exam Limitations: no limitations (BRINA COWART) History of Present Illness Date Seen by Provider: September 09, 2020 Time Seen by Provider: 16:19 Initial Comments Patient presents ER by private conveyance from home with chief complaint that about an hour ago he started having some dull aching chest pain about a 2 out of 10 in the center of his left side chest. He did not take anything for it. He says for the past week he has been fighting high blood pressure since stopping taking his lisinopril. He stopped lisinopril because he was having side effects from it. He has no history of coronary disease but he does have a history of hypertension. He used to see Gonzalo Cornejo but recently switched over to Yeni Abad who put him on lisinopril and he says he does not like the medicine. (BRINA COWART) Allergies and Home Medications Allergies Coded Allergies: No Known Drug Allergies (Unverified , 05/07/14) Home Medications Aclidinium Gully 400 Mcg Aer.pow.ba, 1 PUFF IH BID PRN for SHORTNESS OF BREATH, (Reported) Albuterol Sulfate 2.5 Mg/3 Ml Vial.neb, 2.5 MG IH QID PRN for SHORTNESS OF BREATH, (Reported) Albuterol Sulfate 18 Gm Hfa.aer.ad, 1-2 PUFF IH QID PRN for SHORTNESS OF BREATH, (Reported) Amlodipine Besylate 10 Mg Tablet, 10 MG PO DAILY, (Reported) Aspirin 81 Mg Tablet.dr, 81 MG PO HS, (Reported) Fluticasone/Salmeterol 1 Each Blst.w.dev, 1 PUFF IH BID, (Reported) Ipratropium Gully 12.9 Gm Aers, 2 PUFF IH QID PRN for SHORTNESS OF BREATH, (Reported) Methylprednisolone 4 Mg Tab.ds.pk, 4 MG PO UD Prescribed by: WYATT LAURENT on 07/08/18 0230 Metoprolol Tartrate 100 Mg Tablet, 100 MG PO BID, (Reported) Montelukast Sodium 10 Mg Tablet, 10 MG PO HS, (Reported) Omeprazole Magnesium 20 Mg Tablet.dr, 20 MG PO DAILY Prescribed by: JUDD LUCAS on 02/13/16 1350 Patient Home Medication List Home Medication List Reviewed: Yes (BRINA COWART) Review of Systems Review of Systems Constitutional: No chills, No diaphoresis EENTM: No Blurred Vision, No Double Vision Respiratory: Denies Cough, Denies Shortness of Air Cardiovascular: See HPI, Chest Pain; Denies Lightheadedness Gastrointestinal: Denies Abdomen Distended, Denies Abdominal Pain, Denies Nausea Genitourinary: Denies Burning, Denies Drainage Musculoskeletal: No back pain, No joint pain Skin: No change in color, No pruritus Psychiatric/Neurological: Denies Anxiety, Denies Depressed (BRINA COWART) All Other Systems Reviewed Negative Unless Noted: Yes (BRINA COWART) Past Xwyvvrx-Gtmrhi-Gjnpev Hx Patient Social History Alcohol Use: Denies Use Smoking Status: Former Smoker Former Smoker, Quit: May 10, 1995 Recent Hopitalizations: No (BRINA COWART) Immunizations Up To Date Date of Pneumonia Vaccine: Feb 07, 2013 (BRINA COWART) Seasonal Allergies Seasonal Allergies: No (BRINA COWART) Past Medical History Surgeries: Yes (CARDIAC CATH 04/2014--NO INTERVENTION; TURBT; SINUS SURGERY) Bladder Surgery, Cardiac Respiratory: Yes Sleep Apnea, COPD Currently Using CPAP: Yes Cardiac: Yes (CARDIAC CATH 04/2014--NO INTERVENTION) Chronic Edema/Swelling, Hypertension Neurological: No Reproductive Disorders: No Genitourinary: Yes (BLADDER CANCER--S/P TURBT) Gastrointestinal: No Musculoskeletal: Yes Arthritis Endocrine: Yes (OBESITY) HEENT: Yes (CHRONIC SINUSITIS--S/P SURGERY) Cancer: Yes Bladder Did You Recieve Any Treatments: Yes What Type of Treatment Did You: Surgical Intervention Psychosocial: No Integumentary: No Blood Disorders: No (BRINA COWART) Family Medical History Asthma G8 BROTHER No Family History of: AIDS Abdominal aortic aneurysm [place]'s disease Alcoholism Alzheimer's disease Aphasia Arthritis Cancer of mouth Cardiovascular disease Cataracts Colon cancer Completed stroke Congenital disease Congenital heart disease Coronary thrombosis Cystic fibrosis Deafness or hearing loss Dementia Diabetes mellitus Drug abuse Dysphasia Fibrocystic disease of breast Gastroenteritis Glaucoma Hypercholesterolemia Hypertension Infertility Kidney disease Myocardial infarction Neoplasm Not obtainable due to adoption Osteoporosis Parkinson's disease Prostate cancer Psychosocial problem Respiratory disorder Seizure disorder Severe allergy Thyroid disease Tuberculosis Visual disorder Physical Exam Vital Signs Vital Signs - First Documented 09/09/20 16:20 Temp 36.6 Pulse 73 Resp 18 B/P (MAP) 174/101 (125) Pulse Ox 98 O2 Delivery Room Air (RY SUBRAMANIAN MD) Vital Signs Capillary Refill : (BRINA COWART) Height, Weight, BMI Height: 5'11.00" Weight: 295lbs. 0oz. 133.469604hn; 46.5 BMI Method:Stated General Appearance: No Apparent Distress, WD/WN HEENT: PERRL/EOMI, Pharynx Normal, Moist Mucous Membranes Neck: Full Range of Motion, Normal Inspection, Non Tender Respiratory: Lungs Clear, Normal Breath Sounds, No Accessory Muscle Use, No Respiratory Distress Cardiovascular: Regular Rate, Rhythm, No Edema, Normal Peripheral Pulses Gastrointestinal: Normal Bowel Sounds, Non Tender, Soft Rectal: Normal Exam, Deferred Extremity: Normal Capillary Refill, Normal Inspection Neurologic/Psychiatric: Alert, Oriented x3 Skin: Normal Color, Warm/Dry (BRINA COWART) Progress/Results/Core Measures Results/Orders Lab Results Laboratory Tests Test 09/09/20 16:30 09/09/20 18:14 Range/Units White Blood Count 10.5 4.3-11.0 10^3/uL Red Blood Count 5.01 4.30-5.52 10^6/uL Hemoglobin 15.6 13.3-17.7 g/dL Hematocrit 47 40-54 % Mean Corpuscular Volume 94 80-99 fL Mean Corpuscular Hemoglobin 31 25-34 pg Mean Corpuscular Hemoglobin Concent 33 32-36 g/dL Red Cell Distribution Width 13.9 10.0-14.5 % Platelet Count 269 130-400 10^3/uL Mean Platelet Volume 11.3 9.0-12.2 fL Immature Granulocyte % (Auto) 0 % Neutrophils (%) (Auto) 70 42-75 % Lymphocytes (%) (Auto) 20 12-44 % Monocytes (%) (Auto) 7 0-12 % Eosinophils (%) (Auto) 2 0-10 % Basophils (%) (Auto) 1 0-10 % Neutrophils # (Auto) 7.3 1.8-7.8 10^3/uL Lymphocytes # (Auto) 2.1 1.0-4.0 10^3/uL Monocytes # (Auto) 0.8 0.0-1.0 10^3/uL Eosinophils # (Auto) 0.2 0.0-0.3 10^3/uL Basophils # (Auto) 0.1 0.0-0.1 10^3/uL Immature Granulocyte # (Auto) 0.0 0.0-0.1 10^3/uL Prothrombin Time 13.0 12.2-14.7 SEC INR Comment 0.9 0.8-1.4 Activated Partial Thromboplast Time 32 24-35 SEC Sodium Level 140 135-145 MMOL/L Potassium Level 4.0 3.6-5.0 MMOL/L Chloride Level 103 98-107 MMOL/L Carbon Dioxide Level 26 21-32 MMOL/L Anion Gap 11 5-14 MMOL/L Blood Urea Nitrogen 15 7-18 MG/DL Creatinine 1.11 0.60-1.30 MG/DL Estimat Glomerular Filtration Rate > 60 BUN/Creatinine Ratio 14 Glucose Level 103 70-105 MG/DL Calcium Level 10.3 H 8.5-10.1 MG/DL Corrected Calcium 10.1 8.5-10.1 MG/DL Magnesium Level 1.9 1.6-2.4 MG/DL Total Bilirubin 0.5 0.1-1.0 MG/DL Aspartate Amino Transf (AST/SGOT) 19 5-34 U/L Alanine Aminotransferase (ALT/SGPT) 28 0-55 U/L Alkaline Phosphatase 93 40-136 U/L Myoglobin 41.9 10.0-92.0 NG/ML Troponin I < 0.028 < 0.028 <0.028 NG/ML B-Type Natriuretic Peptide 16.8 <100.0 PG/ML Total Protein 8.0 6.4-8.2 GM/DL Albumin 4.3 3.2-4.5 GM/DL (RY SUBRAMANIAN MD) My Orders Orders - RY SUBRAMANIAN MD Labetalol Injection (Normodyne Injection (09/09/20 19:00) (RY SUBRAMANIAN MD) Medications Given in ED Current Medications Medications Dose Ordered Sig/José Route Start Time Stop Time Status Last Admin Dose Admin Aspirin 324 mg ONCE ONCE PO 09/09/20 16:45 09/09/20 16:46 DC 09/09/20 16:59 324 MG Hydralazine HCl 10 mg ONCE ONCE IV 09/09/20 17:30 09/09/20 17:31 DC 09/09/20 18:18 10 MG Labetalol HCl 20 mg ONCE ONCE IV 09/09/20 19:00 09/09/20 19:01 DC 09/09/20 18:53 20 MG (RY SUBRAMANIAN MD) Vital Signs/I&O 09/09/20 16:20 Temp 36.6 Pulse 73 Resp 18 B/P (MAP) 174/101 (125) Pulse Ox 98 O2 Delivery Room Air (RY SUBRAMANIAN MD) Progress Progress Note : Time: 18:33 Progress Note Patient said the pain was fleeting and he had a normal angiogram by Dr. Kwon in 2013, 7 years ago. If he has a second delta troponin 3 hours after the pain started that is negative we will probably let him follow-up outpatient. He has had no further symptoms and his blood pressure slipped down to 140/99 shortly after arrival. It came back up to 180/110 so we gave him a dose of hydralazine. We may send him home with a little amlodipine since he is tolerated that in the past. We have encouraged him not to continue taking lisinopril since he seems to be having adverse effects to it. (BRINA COWART) Progress Note : Time: 19:10 Progress Note Patient reevaluated after hydralazine and a little bit of Lopressor. He feels much better his blood pressure is down to 170/88. I reviewed all of his laboratory findings with him and discussed plan of care. We will place the patient back on amlodipine 5 mg daily. He is going to call his primary care provider tomorrow for a follow-up appointment sooner than is actually already scheduled. He has no clinical or objective findings at this time to warrant further investigation evaluation in the emergency department. He is comfortable with the plan of care. All questions are sought and answered. Patient is stable for discharge. (RY SUBRAMANIAN MD) Diagnostic Imaging Diagonstic Imaging: Xray Plain Films/CT/US/NM/MRI: chest Comments NAME: TRAN LORENZO Favio [facility] REC#: [id number] PT STATUS: REG ER : 1955 PHYSICIAN: BRINA COWART MD ADMIT DATE: 09/09/20/ER Signed Date of Exam:09/09/20 CHEST 1 VIEW, AP/PA ONLY EXAMINATION: Chest 1 view HISTORY: Chest pain COMPARISON: None available. FINDINGS: The lungs are clear without edema or pneumonia. No pleural effusion or pneumothorax. Heart size is normal. IMPRESSION: 1. Clear lungs. Dictated by: Dictated on workstation # [id number] Dict: 09/09/205 Trans: 09/09/201654 [facility] [id number] Interpreted by: SARAH HARO MD Electronically signed by: SARAH HARO MD 09/09/201654 Reviewed: Reviewed by Me (BRINA COWART) Transfer of Care Time: 18:36 Care transferred to: Dr Subramanian (BRINA COWART) Departure Impression Primary Impression: Anxiety Additional Impressions: HTN (hypertension) Qualified Codes: I10 - Essential (primary) hypertension Chest pain Qualified Codes: R07.9 - Chest pain, unspecified Disposition: 01 HOME, SELF-CARE Condition: Stable Departure-Patient Inst. Decision time for Depature: 19:11 (RY SUBRAMANIAN MD) Referrals: [facility] [place] Primary Care Physician YENI ABAD (Family) Primary Care Physician Patient Instructions: High Blood Pressure in Adults Add. Discharge Instructions: Take the Norvasc/amlodipine 5 mg daily until you follow-up with your primary care physician. Then you need to discuss with him further management of your blood pressure. Come back to the emergency department for any new concerns, emergent complaints. Scripts Amlodipine Besylate (Amlodipine Besylate) 5 Mg Tablet 5 MG PO DAILY, #14 TAB Prov: RY SUBRAMANIAN MD 09/09/20 BRINA COWART September 09, 2020 16:32 RY SUBRAMANIAN MD September 09, 2020 19:12
[2020-09-09] MEDS ORDERED: ASPIRIN 81 MG CHEW (CHILDREN'S ASA) PO ONE (16:45)
[2020-09-09] MEDS ORDERED: NITROGLYCERIN 0.4 MG SL TABS BTL 25'S SL PRN (16:45)
[2020-09-09 16:50] LABS: BASOPHILS # (AUTO) 0.1 10^3/uL (0.0-0.1); BASOPHILS % (AUTO) 1 % (0-10); EOSINOPHILS # (AUTO) 0.2 10^3/uL (0.0-0.3); EOSINOPHILS % (AUTO) 2 % (0-10); HEMATOCRIT 47 % (40-54); HEMOGLOBIN 15.6 g/dL (13.3-17.7); LYMPHOCYTES # (AUTO) 2.1 10^3/uL (1.0-4.0); LYMPHOCYTES % (AUTO) 20 % (12-44); MEAN CORPUSCULAR HEMOGLOBIN 31 pg (25-34); MEAN CORPUSCULAR HGB CONC 33 g/dL (32-36); MEAN CORPUSCULAR VOLUME 94 fL (80-99); MEAN PLATELET VOLUME 11.3 fL (9.0-12.2); MONOCYTES # (AUTO) 0.8 10^3/uL (0.0-1.0); MONOCYTES % (AUTO) 7 % (0-12); NEUTROPHILS # (AUTO) 7.3 10^3/uL (1.8-7.8); NEUTROPHILS % (AUTO) 70 % (42-75); PLATELET COUNT 269 10^3/uL (130-400); WHITE BLOOD COUNT 10.5 10^3/uL (4.3-11.0)
[2020-09-09 16:57] LABS: INR 0.9 (0.8-1.4)
--- NOTE | 2020-09-09 16:57 | Diagnostic Imaging Report ---
EXAMINATION: Chest 1 view HISTORY: Chest pain COMPARISON: None available. FINDINGS: The lungs are clear without edema or pneumonia. No pleural effusion or pneumothorax. Heart size is normal. IMPRESSION: 1. Clear lungs. Dictated by: Dictated on workstation # [id number]
[2020-09-09 16:58] LABS: ALBUMIN 4.3 GM/DL (3.2-4.5); CHLORIDE 103 MMOL/L (98-107); SODIUM 140 MMOL/L (135-145)
[2020-09-09 16:59] LABS: CALCIUM 10.3 MG/DL (8.5-10.1)
[2020-09-09 17:00] LABS: GLUCOSE 103 MG/DL (70-105)
[2020-09-09 17:02] LABS: BILIRUBIN,TOTAL 0.5 MG/DL (0.1-1.0); CARBON DIOXIDE 26 MMOL/L (21-32)
[2020-09-09 17:04] LABS: ALKALINE PHOSPHATASE 93 U/L (40-136); CREATININE SERUM 1.11 MG/DL (0.60-1.30); GFR ESTIMATED > 60
[2020-09-09 17:05] LABS: BUN/CREATININE RATIO 14
[2020-09-09 17:07] LABS: ALANINE AMINOTRANSFERASE 28 U/L (0-55); MAGNESIUM 1.9 MG/DL (1.6-2.4)
[2020-09-09] MEDS ORDERED: hydrALAZINE (APESOLINE) 20 MG/ML VIAL IV ONE (17:30)
[2020-09-09] MEDS ORDERED: LABETALOL HCL 20 MG/4 ML VIAL IV ONE (19:00)
[2020-09-09] MEDS ORDERED: AMLO-250 PO (19:12)
== END 2020-09-09 19:20 | disposition home or self-care (01) ==
LOC: EDUNIT# 16:17 → ER 16:19
DX: F41.9 Anxiety disorder, unspecified (principal); I10 Essential (primary) hypertension; R07.9 Chest pain, unspecified; J44.9 Chronic obstructive pulmonary disease, unspecified; E66.9 Obesity, unspecified; Z68.42 Body mass index [BMI] 45.0-49.9, adult; Z87.891 Personal history of nicotine dependence; Z79.82 Long term (current) use of aspirin; Z79.52 Long term (current) use of systemic steroids; Z79.899 Other long term (current) drug therapy
CPT/HCPCS: 36415; 71045; 80053; 83735; 83874; 83880; 84484; 85025; 85610; 85730; 93005

== ENCOUNTER 2022-08-09 19:59 | Observation (INO) | payer MEDICARE, OTHER ==
[~2022-08-09] VITALS: Ht 182.8 cm; Wt 140.0 kg
[~2022-08-09 19:59] MED LIST changes: +ACLI400A2 IH; -ACLI400A3 IH; +AMLO-250 PO; +MONT-40 PO; -MONT10TA32 PO
[2022-08-09] MEDS ORDERED: ASPIRIN 81 MG CHEW (CHILDREN'S ASA) PO ONE (20:15)
[2022-08-09] MEDS ORDERED: NITROGLYCERIN 2% OINT 1 GM UNIT DOSE PACKET TOP ONE (20:15)
[2022-08-09] MEDS ORDERED: NITROGLYCERIN 0.4 MG SL TABS BTL 25'S SL PRN (20:15)
[2022-08-09 20:22] LABS: BASOPHILS # (AUTO) 0.1 10^3/uL (0.0-0.1); BASOPHILS % (AUTO) 1 % (0-10); EOSINOPHILS # (AUTO) 0.3 10^3/uL (0.0-0.3); EOSINOPHILS % (AUTO) 3 % (0-10); HEMATOCRIT 44 % (40-54); HEMOGLOBIN 15.2 g/dL (13.3-17.7); LYMPHOCYTES # (AUTO) 2.4 10^3/uL (1.0-4.0); LYMPHOCYTES % (AUTO) 23 % (12-44); MEAN CORPUSCULAR HEMOGLOBIN 32 pg (25-34); MEAN CORPUSCULAR HGB CONC 35 g/dL (32-36); MEAN CORPUSCULAR VOLUME 92 fL (80-99); MEAN PLATELET VOLUME 11.2 fL (9.0-12.2); MONOCYTES % (AUTO) 9 % (0-12); NEUTROPHILS % (AUTO) 65 % (42-75); PLATELET COUNT 254 10^3/uL (130-400); WHITE BLOOD COUNT 10.9 10^3/uL (4.3-11.0)
--- NOTE | 2022-08-09 20:25 | ED Chest Pain ---
General Chief Complaint: Chest Pain Stated Complaint: CHEST DISCOMFORT Source: patient History of Present Illness Date Seen by Provider: Aug 09, 2022 Time Seen by Provider: 20:03 Initial Comments PT ARRIVES VIA POV FROM HOME WITH PT STATES HE BEGAN HAVING CHEST PAIN YESTERDAY PAIN IS IN MID CHEST, RADIATES INTO BACK AND LEFT SHOULDER AND SCAPULAR AREA PAIN IS A TIGHTNESS, AND DESCRIBES A DULL PAIN RATES PAIN 5/10 AT WORST, 2/10 AT THIS TIME NOTHING WORSENS OR IMPROVES PAIN YESTERDAY HE HAD SWEATS WITH THE PAIN, AND NAUSEA. HE STATES YESTERDAY HIS HEART RATE WAS 152 ON HIS MONITOR, BUT HE IS UNABLE TO STATE IF HE HAD SENSATION OF RAPID HEART RATE. NO DIZZINESS OR SYNCOPE FEELS "FLUSHED" TODAY NO SWELLING IN LEGS/FEET OR PAIN IN CALVES NO SHORTNESS OF BREATH NO HISTORY OF SIMILAR PT HAS HYPERTENSION. HE HAS BEEN PRESCRIBED MEDICATIONS--LISINOPRIL, AMLODIPINE AND METOPROLOL PER MED RECONCILIATION AND OLD RECORDS. , BUT DID NOT LIKE THE WAY IT MADE HIM FEEL, SO HE REFUSES TO TAKE ANY BLOOD PRESSURE MEDICATION. HE CANNOT STATE WHAT SIDE EFFECTS IT HAD, OR HOW IT MADE HIM FEEL, AND HE DOES NOT KNOW NAMES OF MEDICATIONS HE HAS COPD, AND WEARS CPAP AT HS. HE QUIT SMOKING IN 1995 HE HAD A CARDIAC CATH IN THE PAST, NO INTERVENTION. 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 PCP: [facility]--HE HAS NOT BEEN THERE RECENTLY Allergies and Home Medications Allergies Coded Allergies: No Known Drug Allergies (Unverified , 05/07/14) Patient Home Medication List Aclidinium [place] (Tudorza Pressair) 400 Mcg Aer.pow.ba, 1 PUFF IH BID PRN for SHORTNESS OF BREATH, (Reported) Entered as Reported by: HARI JAMESON on 02/13/16 1248 Albuterol Sulfate (Albuterol Sulfate) 2.5 Mg/3 Ml Vial.neb, 2.5 MG IH QID PRN for SHORTNESS OF BREATH, (Reported) Entered as Reported by: JOSE WALKER on 02/13/16 0523 Albuterol Sulfate (Ventolin Hfa) 18 Gm Hfa.aer.ad, 1-2 PUFF IH QID PRN for SHORTNESS OF BREATH, (Reported) Entered as Reported by: HARI JAMESON on 02/13/16 1248 Amlodipine Besylate (Amlodipine Besylate) 10 Mg Tablet, 10 MG PO DAILY, (Reported) Entered as Reported by: JOSE WALKER on 02/13/16 05 Amlodipine Besylate (Amlodipine Besylate) 5 Mg Tablet, 5 MG PO DAILY Prescribed by: RY SUBRAMANIAN on 09/09/201911 Aspirin (Aspirin EC) 81 Mg Tablet.dr, 81 MG PO HS, (Reported) Entered as Reported by: HARI JAMESON on 02/13/16 124 Fluticasone/Salmeterol (Advair 250-50 Diskus) 1 Each Blst.w.dev, 1 PUFF IH BID, (Reported) Entered as Reported by: HARI JAMESON on 02/13/16 124 Ipratropium [place] (Atrovent Hfa) 12.9 Gm Aers, 2 PUFF IH QID PRN for SHORTNESS OF BREATH, (Reported) Entered as Reported by: HARI JAMESON on 02/13/16 124 Methylprednisolone (Medrol) 4 Mg Tab.ds.pk, 4 MG PO UD Prescribed by: WYATT LAURENT on 07/08/18 0230 Metoprolol Tartrate (Metoprolol Tartrate) 100 Mg Tablet, 100 MG PO BID, (Reported) Entered as Reported by: JOSE WALKER on 02/13/16 05 Montelukast Sodium (Montelukast Sodium) 10 Mg Tablet, 10 MG PO HS, (Reported) Entered as Reported by: JOSE WALKER on 02/13/16 05 Omeprazole Magnesium (Prilosec Otc) 20 Mg Tablet.dr, 20 MG PO DAILY Prescribed by: JUDD LUCAS on 02/13/16 1350 Review of Systems Review of Systems Constitutional: see HPI Respiratory: No Symptoms Reported Cardiovascular: See HPI, Chest Pain; Denies Edema, Denies Lightheadedness; Other (PER HPI) Gastrointestinal: See HPI; Denies Abdominal Pain; Nausea; Denies Vomiting Genitourinary: No Symptoms Reported Musculoskeletal: see HPI Skin: no symptoms reported Psychiatric/Neurological: Anxiety Endocrine: No Symptoms Reported Hematologic/Lymphatic: No Symptoms Reported Past Jrjapis-Ifjvqt-Zaozws Hx Patient Social History Tobacco Use?: Yes Tobacco type used: Cigarettes Smoking Status: Former Smoker Substance use?: No Alcohol Use?: No Seasonal Allergies Seasonal Allergies: Yes Past Medical History Surgeries: Yes Bladder Surgery, Cardiac Respiratory: Yes Sleep Apnea, COPD Currently Using CPAP: Yes Cardiac: Yes Angina, Hypertension Neurological: No Reproductive Disorders: No Genitourinary: Yes (BLADDER CANCER--S/P TURBT) Gastrointestinal: Yes Chronic Constipation Musculoskeletal: Yes Arthritis Endocrine: Yes (MORBID OBESITY) HEENT: Yes (CHRONIC SINUSITIS--S/P SURGERY) Cancer: Yes Bladder Did You Recieve Any Treatments: Yes What Type of Treatment Did You: Surgical Intervention Psychosocial: Yes Anxiety Integumentary: No Blood Disorders: No Family Medical History Asthma G8 BROTHER No Family History of: AIDS Abdominal aortic aneurysm [place]'s disease Alcoholism Alzheimer's disease Aphasia Arthritis Cancer of mouth Cardiovascular disease Cataracts Colon cancer Completed stroke Congenital disease Congenital heart disease Coronary thrombosis Cystic fibrosis Deafness or hearing loss Dementia Diabetes mellitus Drug abuse Dysphasia Fibrocystic disease of breast Gastroenteritis Glaucoma Hypercholesterolemia Hypertension Infertility Kidney disease Myocardial infarction Neoplasm Not obtainable due to adoption Osteoporosis Parkinson's disease Prostate cancer Psychosocial problem Respiratory disorder Seizure disorder Severe allergy Thyroid disease Tuberculosis Visual disorder SOCIAL HISTORY: -SMOKED 2 PPD, QUIT 1995 -ETOH--OCCASIONAL USE -DRUGS--DENIES USE PAST SURGICAL HISTORY: -TURBT FOR BLADDER CANCER. -SINUS SURGERY -CARDIAC CATH--NORMAL WITH EF 65-70%. -NO INTERVENTION 05/08/[address] NIX Physical Exam Vital Signs Vital Signs - First Documented 08/09/22 08/09/22 20:01 23:48 Temp 37.4 Pulse 83 Resp 22 B/P (MAP) 188/115 (139) Pulse Ox 94 O2 Delivery Room Air O2 Flow Rate 3.00 Capillary Refill : Height, Weight, BMI Height: 5'11.00" Weight: 295lbs. 0oz. [id number]; 37.00 BMI Method:Stated General Appearance: No Apparent Distress, WD/WN, Anxious, Obese (MORBIDLY OBESE), Other (TALKS VERY LOUDLY NON-STOP AT GREAT LENGTH, DIFFICULT TO KEEP ON SUBJECT. DOES NOT APPEAR TO BE IN ANY DISCOMFORT OR DISTRESS. 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 Norm as Tested Skin: Normal Color, Warm/Dry Progress/Results/Core Measures Results/Orders Lab Results Laboratory Tests Test 08/09/22 20:12 Range/Units White Blood Count 10.9 4.3-11.0 10^3/uL Red Blood Count 4.80 4.30-5.52 10^6/uL Hemoglobin 15.2 13.3-17.7 g/dL Hematocrit 44 40-54 % Mean Corpuscular Volume 92 80-99 fL Mean Corpuscular Hemoglobin 32 25-34 pg Mean Corpuscular Hemoglobin Concent 35 32-36 g/dL Red Cell Distribution Width 14.0 10.0-14.5 % Platelet Count 254 130-400 10^3/uL Mean Platelet Volume 11.2 9.0-12.2 fL Immature Granulocyte % (Auto) 0 % Neutrophils (%) (Auto) 65 42-75 % Lymphocytes (%) (Auto) 23 12-44 % Monocytes (%) (Auto) 9 0-12 % Eosinophils (%) (Auto) 3 0-10 % Basophils (%) (Auto) 1 0-10 % Neutrophils # (Auto) 7.0 1.8-7.8 10^3/uL Lymphocytes # (Auto) 2.4 1.0-4.0 10^3/uL Monocytes # (Auto) 1.0 0.0-1.0 10^3/uL Eosinophils # (Auto) 0.3 0.0-0.3 10^3/uL Basophils # (Auto) 0.1 0.0-0.1 10^3/uL Immature Granulocyte # (Auto) 0.0 0.0-0.1 10^3/uL Erythrocyte Sedimentation Rate 17 0-30 MM/HR Prothrombin Time 12.6 12.2-14.7 SEC INR Comment 0.9 0.8-1.4 Activated Partial Thromboplast Time 32 24-35 SEC D-Dimer 0.30 0.00-0.49 UG/ML Sodium Level 142 135-145 MMOL/L Potassium Level 3.6 3.6-5.0 MMOL/L Chloride Level 107 98-107 MMOL/L Carbon Dioxide Level 22 21-32 MMOL/L Anion Gap 13 5-14 MMOL/L Blood Urea Nitrogen 18 7-18 MG/DL Creatinine 0.95 0.60-1.30 MG/DL Estimat Glomerular Filtration Rate 89 BUN/Creatinine Ratio 19 Glucose Level 120 H 70-105 MG/DL Calcium Level 9.6 8.5-10.1 MG/DL Corrected Calcium 9.4 8.5-10.1 MG/DL Magnesium Level 1.8 1.6-2.4 MG/DL Total Bilirubin 0.4 0.1-1.0 MG/DL Aspartate Amino Transf (AST/SGOT) 16 5-34 U/L Alanine Aminotransferase (ALT/SGPT) 21 0-55 U/L Alkaline Phosphatase 78 40-136 U/L Total Creatine Kinase 178 30-200 U/L Creatine Kinase MB 2.1 <6.6 NG/ML Myoglobin 48.1 10.0-92.0 NG/ML Troponin I < 0.028 <0.028 NG/ML C-Reactive Protein High Sensitivity 0.60 H 0.00-0.50 MG/DL B-Type Natriuretic Peptide 81.3 <100.0 PG/ML Total Protein 7.5 6.4-8.2 GM/DL Albumin 4.2 3.2-4.5 GM/DL Amylase Level 132 H 25-125 U/L Lipase 249 H 8-78 U/L Serum Alcohol < 10 <10 MG/DL My Orders Orders - WYATT LAURENT DO Ed Iv/Invasive Line Start (08/09/22 20:03) Ekg Tracing (08/09/22 20:03) O2 (08/09/22 20:03) Monitor-Rhythm Ecg Trace Only (08/09/22 20:03) Amylase (08/09/22 20:03) Bnp Joslyn (08/09/22 20:03) Cbc With Automated Diff (08/09/22 20:03) Comprehensive Metabolic Panel (08/09/22 20:03) Creatine Kinase (08/09/22 20:03) Creatine Kinase Mb (08/09/22 20:03) Hs C Reactive Protein (08/09/22 20:03) Fibrin Degradation Products (08/09/22 20:03) Lipase (08/09/22 20:03) Magnesium (08/09/22 20:03) Protime With Inr (08/09/22 20:03) Partial Thromboplastin Time (08/09/22 20:03) Erythrocyte Sedimentation Rate (08/09/22 20:03) Myoglobin Serum (08/09/22 20:03) Troponin I Joslyn (08/09/22 20:03) Chest 1 View, Ap/Pa Only (08/09/22 20:03) Nitroglycerin 0.4 Mg Btl 25's (Nitrostat (08/09/22 20:15) Aspirin Chewable Tablet (Baby Aspirin Ch (08/09/22 20:15) Nitroglycerin Ointment (Nitrobid Ointme (08/09/22 20:15) Ct Stephania Chest/Noang Abd-Pelv W (08/09/22 20:55) Hydralazine Injection (Apresoline Inject (08/09/22 21:00) Alcohol (08/09/22 21:00) Iohexol Injection (Omnipaque 350 Mg/Ml 1 (08/09/22 21:15) Received Contrast (Hold Metformin- Contr (08/09/22 21:15) Ns (Ivpb) (Sodium Chloride 0.9% Ivpb Bag (08/09/22 21:15) Labetalol Injection (Normodyne Injection (08/09/22 21:45) Ed Admission (Communication) (08/09/22 22:03) Medications Given in ED Current Medications Medications Dose Ordered Sig/José Route Start Time Stop Time Status Last Admin Dose Admin Aspirin 324 mg ONCE ONCE PO 08/09/22 20:15 08/09/22 20:16 DC 08/09/22 20:24 324 MG Hydralazine HCl 10 mg ONCE ONCE IV 08/09/22 21:00 08/09/22 21:02 DC 08/09/22 21:06 10 MG Iohexol 100 ml ONCE ONCE IV 08/09/22 21:15 08/09/22 21:40 DC 08/09/22 21:14 88 ML Labetalol HCl 20 mg ONCE ONCE IV 08/09/22 21:45 08/09/22 21:46 DC 08/09/22 23:01 10 MG Nitroglycerin 1 inch ONCE ONCE TOP 08/09/22 20:15 08/09/22 20:16 DC 08/09/22 20:24 1 INCH Sodium Chloride 100 ml ONCE ONCE IV 08/09/22 21:15 08/09/22 21:40 DC 08/09/22 21:14 70 ML Vital Signs/I&O 08/09/22 08/09/22 20:01 23:48 Temp 37.4 Pulse 83 69 Resp 22 20 B/P (MAP) 188/115 (139) 152/92 Pulse Ox 94 96 O2 Delivery Room Air Nasal Cannula O2 Flow Rate 3.00 Progress Progress Note : Progress Note GIVEN: -ASPIRIN -NITROPASTE -HYDRALAZINE -LABETALOL INITIAL BP 188/115 HR IN 80'S O2 SATS IN LOW TO MID 90'S--PLACED ON O2 AT 2L/NC PAIN FREE WITH NITROPASTE, BP DOWN TO 160'S/100'S, HR IN 80'S. HYDRALAZINE ADDED FOR HTN. BP TRENDED BACK UP TO 190'S/110'S. LABETALOL ADDED. PT IS CHEST PAIN FREE. VITALS AT TIME OF ADMIT: BP 159/96, HR 65, O2 SAT 97% ON 2L/NC. PT IS SYMPTOM- FREE REVIEWED PRIOR RECORDS, INCLUDING ER VISITS, ADMITS/H&P'S/CONSULTS/DISCHARGE SUMMARIES, TESTS/PROCEDURES HE HAD SAME COMPLAINTS ON ER VISIT IN 2020. HE WAS VERY HYPERTENSIVE AT THAT TIME. HE HAD REPORTED THAT HE HAD BEEN PRESCRIBED LISINOPRIL BUT HAD QUIT TAKING IT, BECAUSE HE DID NOT LIKE THE WAY IT MADE HIM FEEL. AT THAT ER VISIT, HE WAS STARTED ON AMLODIPINE. ON QUESTIONING PT ABOUT THAT MEDICATION, HE THINKS HE TOOK 1 PILL, AND HE DIDN'T LIKE THE WAY IT MADE HIM FEEL SO HE DIDN'T TAKE ANY MORE STATES "I WAS JUST OUT OF IT" AND STATES HIS BLOOD PRESSURE "WENT NANCY HIGH" AND HAD TO COME BACK TO ER THE NEXT DAY, SO HE DIDN'T TAKE ANY MORE OF IT ( THERE IS NO RECORD OF ANY BACK TO BACK OR CLOSE TOGETHER ER VISITS NOTED ON REVIEW OF PRIOR RECORDS) DISCUSSED TEST RESULTS WITH PT AND . PT AGREES TO ADMIT. Initial ECG Impression Date: Aug 09, 2022 Initial ECG Impression Time: 20:08 Initial ECG Rate: 82 Initial ECG Rhythm: Normal Sinus Initial ECG Intervals DE 190 QRS 105 QT/QTC 383/421 Initial ECG Impression: Nonspecific Changes (SLIGHT IVCD/INCOMPLETE RBBB) Initial ECG Comparisson: Unchanged Comment INTERPRETED BY ME Diagnostic Imaging Comments CXR--PER RADIOLOGIST REPORT AT 2034 FINDINGS: The lungs are clear without edema or pneumonia. No pleural effusion or pneumothorax. Heart size is normal. IMPRESSION: Clear lungs. CT CHEST ANGIOGRAM / ABDOMEN-PELVIS--PER RADIOLOGIST REPORT AT 2147 COMPARISON: None available. FINDINGS: There is no pulmonary embolism. There is no edema or pneumonia. No pleural effusion. No pneumothorax. No suspicious nodules. Small amount of mucus is present in the trachea. There is no axillary or supraclavicular lymphadenopathy. There is no mediastinal lymphadenopathy. Heart size is normal. There is no coronary artery calcification. No pericardial effusion. Aorta is normal in caliber. The liver is normal without focal lesion. There is no biliary ductal dilation. Gallbladder is normal. Pancreas is normal. Spleen is normal. Adrenal glands are normal. The kidneys are normal. There is no hydronephrosis. Urinary bladder is normal. Bowel is normal in caliber without obstruction or inflammation. No free fluid or air. No abdominal or pelvic lymphadenopathy. Aorta is normal in caliber without aneurysm. There is no suspicious osseus lesion. IMPRESSION: 1. No pulmonary embolism. 2. No acute abnormality in the abdomen or pelvis. Reviewed: Reviewed by Sd Departure Communication (Admissions) 2199--SPOKE WITH DR. KAUR, HOSPITALIST FOR [facility] ACCEPTS PT FOR ADMIT. SHE WILL DO ADMIT ORDERS. Impression Primary Impression: Hypertensive urgency Additional Impressions: Chest pain Uncontrolled hypertension Anxiety COPD (chronic obstructive pulmonary disease) MILD PANCREATITIS Obesity Sleep apnea Disposition: ADMITTED INPATIENT Condition: Stable Admissions Decision to Admit Reason: Admit from ER (General) Decision to Admit/Date: Aug 09, 2022 Time/Decision to Admit Time: 22:00 Departure-Patient Inst. Referrals: [facility] (PCP/Family) Primary Care Physician WYATT LAURENT DO Aug 09, 2022 20:25
--- NOTE | 2022-08-09 20:29 | Diagnostic Imaging Report ---
EXAMINATION: Chest 1 view. HISTORY: Chest pain. COMPARISON: 09/10/2019. FINDINGS: The lungs are clear without edema or pneumonia. No pleural effusion or pneumothorax. Heart size is normal. IMPRESSION: Clear lungs. Dictated by: Dictated on workstation # [id number]
[2022-08-09 20:36] LABS: FIBRIN DEGRADATION PRODUCTS 0.3 UG/ML (0.00-0.49); INR 0.9 (0.8-1.4); PROTHROMBIN TIME PATIENT 12.6 SEC (12.2-14.7)
[2022-08-09 20:42] LABS: ERYTHROCYTE SEDIMENTATION RATE 17 MM/HR (0-30)
[2022-08-09 20:46] LABS: ALANINE AMINOTRANSFERASE 21 U/L (0-55); ALBUMIN 4.2 GM/DL (3.2-4.5); ALKALINE PHOSPHATASE 78 U/L (40-136); AMYLASE 132 U/L (25-125); BILIRUBIN,TOTAL 0.4 MG/DL (0.1-1.0); BUN/CREATININE RATIO 19; CALCIUM 9.6 MG/DL (8.5-10.1); CARBON DIOXIDE 22 MMOL/L (21-32); CHLORIDE 107 MMOL/L (98-107); CREATINE KINASE 178 U/L (30-200); CREATININE SERUM 0.95 MG/DL (0.60-1.30); GFR ESTIMATED 89; GLUCOSE 120 MG/DL (70-105); LIPASE 249 U/L (8-78); MAGNESIUM 1.8 MG/DL (1.6-2.4); POTASSIUM 3.6 MMOL/L (3.6-5.0); SODIUM 142 MMOL/L (135-145); TOTAL PROTEIN 7.5 GM/DL (6.4-8.2)
[2022-08-09 20:53] LABS: CREATINE KINASE MB 2.1 NG/ML (<6.6)
[2022-08-09] MEDS ORDERED: hydrALAZINE (APESOLINE) 20 MG/ML VIAL IV ONE (21:00)
[2022-08-09] MEDS ORDERED: IOHEXOL 350 MG/ML 100 ML (OMNIPAQUE 350) VIAL IV ONE (21:15)
[2022-08-09] MEDS ORDERED: NS 100 ML (IVPB) BAG IV ONE (21:15)
[2022-08-09] MEDS ORDERED: HOLD METFORMIN - RECEIVED CONTRAST 20 ML VIAL IV SCH (21:15)
--- NOTE | 2022-08-09 21:41 | Diagnostic Imaging Report ---
EXAMINATION: CT angiography chest with and without, CT abdomen and pelvis with and without. TECHNIQUE: Noncontrast enhanced helical images were obtained through the chest, abdomen and pelvis. Contrast enhanced thin section helical images were obtained through the chest, abdomen and pelvis with intravenous contrast timed for the optimal opacification of the arterial structures per departmental CTA protocol. Post-processing, retro reconstructions and interpretation of angiographic images of the vessels was performed. 3D MIP reconstructions were performed and reviewed. All CT scans use one or more of the following dose optimizing techniques: automated exposure control, MA and/or KvP adjustment based on patient size and exam type or iterative reconstruction. HISTORY: Chest pain, elevated pancreatic enzymes. COMPARISON: None available. FINDINGS: There is no pulmonary embolism. There is no edema or pneumonia. No pleural effusion. No pneumothorax. No suspicious nodules. Small amount of mucus is present in the trachea. There is no axillary or supraclavicular lymphadenopathy. There is no mediastinal lymphadenopathy. Heart size is normal. There is no coronary artery calcification. No pericardial effusion. Aorta is normal in caliber. The liver is normal without focal lesion. There is no biliary ductal dilation. Gallbladder is normal. Pancreas is normal. Spleen is normal. Adrenal glands are normal. The kidneys are normal. There is no hydronephrosis. Urinary bladder is normal. Bowel is normal in caliber without obstruction or inflammation. No free fluid or air. No abdominal or pelvic lymphadenopathy. Aorta is normal in caliber without aneurysm. There is no suspicious osseus lesion. IMPRESSION: 1. No pulmonary embolism. 2. No acute abnormality in the abdomen or pelvis. Dictated by: Dictated on workstation # [id number]
[2022-08-09] MEDS ORDERED: LABETALOL HCL 20 MG/4 ML VIAL IV ONE (21:45)
[2022-08-10] MEDS ORDERED: diphenhydrAMINE 25 MG TAB (BENADRYL) PO PRN (00:30)
[2022-08-10] MEDS ORDERED: ONDANSETRON 4 MG/2 ML (SDV) Z0FRAN IV PRN (00:30)
[2022-08-10] MEDS ORDERED: DexMEDEtomidine 250 ML DRIP 250 ML IV SCH (00:30)
[2022-08-10] MEDS ORDERED: ANTACID SUSP 30 ML UDC (MYLANTA) PO PRN (00:30)
[2022-08-10] MEDS: LABETALOL INJECTION 200 MG in NS (IVPB) 160 ML IV SCH ×3 (00:30→07:41)
[2022-08-10] MEDS ORDERED: polyethylene glycoL POWDER 17 GM (MIRALAX) PACK PO PRN (00:30)
[2022-08-10] MEDS ORDERED: ACETAMINOPHEN 325 MG TABLET PO PRN (00:30)
[2022-08-10] MEDS ORDERED: MILK OF MAGNESIA 400 MG/5 ML 30 ML UDC PO PRN (00:30)
[2022-08-10] MEDS ORDERED: LORazepam 0.5 MG (ATIVAN) TABLET PO PRN (00:30)
[2022-08-10] MEDS ORDERED: LACTULOSE SYRUP 10GM/15ML (ENULOSE) 30ML UDC PO PRN (00:30)
[2022-08-10] MEDS ORDERED: CALCIUM CARBONATE 500 MG (TUMS) TAB.CHEW PO PRN (00:30)
[2022-08-10] MEDS ORDERED: HYDROmorphone 2 MG/ML VIAL (DILAUDID) IV PRN (00:30)
[2022-08-10] MEDS ORDERED: ONDANSETRON 4 MG (ZOFRAN) ORAL DISSOLVE TAB PO PRN (00:30)
[2022-08-10] MEDS ORDERED: NS IV 500 ML 500 ML IV PRN (00:30)
[2022-08-10] MEDS ORDERED: MELATONIN 3 MG TABLET PO PRN (00:30)
[2022-08-10] MEDS ORDERED: BISACODYL 10 MG SUPP (DULCOLAX) PR PRN (00:30)
[2022-08-10] MEDS ORDERED: diphenhydrAMINE 50 MG/ML INJ (BENADRYL) IVP PRN (00:30)
[2022-08-10] MEDS ORDERED: NS IV 1000 ML 1,000 ML IV SCH (00:30)
[2022-08-10] MEDS ORDERED: LORazepam INJ 2 MG/ML (ATIVAN) VIAL IVP PRN (00:30)
[2022-08-10 02:29] VITALS: BP 188/115
[2022-08-10] MEDS ORDERED: RT-ALBUTEROL/IPRATROPIUM 3 ML (DUONEB) VIAL INH PRN (02:45)
[2022-08-10 05:01] LABS: BASOPHILS # (AUTO) 0.1 10^3/uL (0.0-0.1); BASOPHILS % (AUTO) 1 % (0-10); EOSINOPHILS # (AUTO) 0.3 10^3/uL (0.0-0.3); EOSINOPHILS % (AUTO) 3 % (0-10); HEMATOCRIT 42 % (40-54); HEMOGLOBIN 14.2 g/dL (13.3-17.7); LYMPHOCYTES % (AUTO) 21 % (12-44); MEAN CORPUSCULAR HEMOGLOBIN 32 pg (25-34); MEAN CORPUSCULAR HGB CONC 34 g/dL (32-36); MEAN CORPUSCULAR VOLUME 92 fL (80-99); MEAN PLATELET VOLUME 11.8 fL (9.0-12.2); MONOCYTES # (AUTO) 0.9 10^3/uL (0.0-1.0); MONOCYTES % (AUTO) 9 % (0-12); NEUTROPHILS # (AUTO) 6.4 10^3/uL (1.8-7.8); NEUTROPHILS % (AUTO) 66 % (42-75); PLATELET COUNT 239 10^3/uL (130-400); WHITE BLOOD COUNT 9.7 10^3/uL (4.3-11.0)
[2022-08-10 05:22] LABS: ALANINE AMINOTRANSFERASE 21 U/L (0-55); ALBUMIN 3.8 GM/DL (3.2-4.5); ALKALINE PHOSPHATASE 72 U/L (40-136); AMYLASE 78 U/L (25-125); BILIRUBIN,TOTAL 0.4 MG/DL (0.1-1.0); BUN/CREATININE RATIO 17; CALCIUM 9.5 MG/DL (8.5-10.1); CARBON DIOXIDE 20 MMOL/L (21-32); CHLORIDE 109 MMOL/L (98-107); GFR ESTIMATED 95; GLUCOSE 116 MG/DL (70-105); LIPASE 63 U/L (8-78); MAGNESIUM 1.8 MG/DL (1.6-2.4); PHOSPHORUS 3.5 MG/DL (2.3-4.7); POTASSIUM 3.8 MMOL/L (3.6-5.0); SODIUM 142 MMOL/L (135-145); TOTAL PROTEIN 6.7 GM/DL (6.4-8.2)
[2022-08-10 05:36] LABS: ABG BASE EXCESS 1.4 MMOL/L (-2.5-2.5); ABG OXYGEN SATURATION 96 % (94-100); ABG PCO2 42 MMHG (35-45); ABG PH 7.41 (7.37-7.43); ABG PO2 85 MMHG (79-93); ABG TCO2 26.9 MMOL/L (21.0-31.0)
[2022-08-10 05:44] LABS: ALLENS TEST YES-POS; INSPIRED O2 21%; PATIENT TEMP 37.1; VENTILATOR NO
[2022-08-10] MEDS ORDERED: KCL 20 MEQ TAB (K-DUR) PO ONE (05:45)
[2022-08-10] MEDS ORDERED: MAGNESIUM 1 GM/100 ML IVPB 100 ML IV SCH (06:00)
[2022-08-10] MEDS ORDERED: KCL 20 MEQ TAB (K-DUR) PO SCH (06:00)
[2022-08-10] MEDS ORDERED: POTASSIUM CL 10MEQ/50ML IVPB 50 ML IV SCH (06:00)
[2022-08-10] MEDS: MAGNESIUM 1 GM/100 ML IVPB 100 ML IV SCH ×2 (06:15→07:41)
[2022-08-10] MEDS ORDERED: FLU QUAD HIGH DOSE 240 MCG/0.7 ML 2022-23 (FLUZONE) IM ONE (07:00)
[2022-08-10] MEDS ORDERED: RT-ALBUTEROL/IPRATROPIUM 3 ML (DUONEB) VIAL INH SCH (07:00)
--- NOTE | 2022-08-10 07:01 | History & Physical-Hospitalist ---
History of Present Illness Date Seen 08/10/22 Time Seen by a Provider: 10:00 Attending Physician [place] PCP Admitting Physician: Maria Teresa Nation DO Attending Physician: Maria Teresa Nation DO Referring Physician Date of Admission Aug 09, 2022 at 23:50 Home Medications & Allergies Home Medications Reviewed patient Home Medication Reconciliation performed by pharmacy medication reconciliations satellite tv technician installer and/or nursing. Patients Allergies have been reviewed. Allergies Allergies Coded Allergies No Known Drug Allergies (Txeadxjyph34/29/14) Past Sdperhb-Whfjyv-Ihizrk Hx Patient Social History Tobacco Use?: No Tobacco type used: Cigarettes Smoking Status: Former Smoker Use of E-Cig and/or Vaping dev: No Substance use?: No Alcohol Use?: No Pt feels they are or have been: No Immunizations Up To Date First/Initial COVID19 Vaccinat: 2020 Second COVID19 Vaccination Scar: 2020 Tetanus Booster (TDap): More Than 5 Years Date of Pneumonia Vaccine: Feb 07, 2013 Seasonal Allergies Seasonal Allergies: Yes Current Status Advance Directives: No Communicates: Verbally Primary Language: [place] Preferred Spoken Language: [place] Is interpretation needed?: No Sensory deficits: Vision impairment, Hearing impairment Implanted or Applied Medical D: CPAP Past Medical History Surgeries: Bladder Surgery, Cardiac Sleep Apnea, COPD Currently Using CPAP: Yes Angina, Hypertension Chronic Constipation Arthritis Bladder Did You Recieve Any Treatments: Yes What Type of Treatment Did You: Surgical Intervention Anxiety Blood Disorders: No ast Medical History 1. Obesity 2. Bladder Cancer sp TURBT 3. COPD 4. Sleep Apnea requiring CPAP with supplemental 5. Chronic sinus congestion with history of sinus surgery 6. Erectile dysfunction Past Surgical History 1. TURBT 2007 2. Sinus Surgery Family Medical History Asthma G8 BROTHER No Family History of: AIDS Abdominal aortic aneurysm [place]'s disease Alcoholism Alzheimer's disease Aphasia Arthritis Cancer of mouth Cardiovascular disease Cataracts Colon cancer Completed stroke Congenital disease Congenital heart disease Coronary thrombosis Cystic fibrosis Deafness or hearing loss Dementia Diabetes mellitus Drug abuse Dysphasia Fibrocystic disease of breast Gastroenteritis Glaucoma Hypercholesterolemia Hypertension Infertility Kidney disease Myocardial infarction Neoplasm Not obtainable due to adoption Osteoporosis Parkinson's disease Prostate cancer Psychosocial problem Respiratory disorder Seizure disorder Severe allergy Thyroid disease Tuberculosis Visual disorder SOCIAL HISTORY: -SMOKED 2 PPD, QUIT 1995 -ETOH--OCCASIONAL USE -DRUGS--DENIES USE PAST SURGICAL HISTORY: -TURBT FOR BLADDER CANCER. -SINUS SURGERY -CARDIAC CATH--NORMAL WITH EF 65-70%. -NO INTERVENTION 05/08/[address] NIX Physical Exam Physical Exam Vital Signs Vital Signs - First Documented 08/09/22 08/09/22 08/10/22 20:01 23:48 02:29 Temp 37.4 Pulse 83 Resp 22 B/P (MAP) 188/115 (139) Pulse Ox 94 O2 Delivery Room Air O2 Flow Rate 3.00 FiO2 21 Capillary Refill : Less Than 3 Seconds Height, Weight, BMI Height: 5'11.00" Weight: 295lbs. 0oz. 133.295980ry; 41.89 BMI Method:Stated Results Results/Procedures Labs Laboratory Tests 08/09/22 20:12 08/10/22 04:39 Patient resulted labs reviewed. 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
--- NOTE | 2022-08-10 08:53 | Short Stay Summary-Hospitalist ---
History of Present Illness HPI/Chief Complaint CC: HTN urgency HPI: This is a 67yoWM clinic patient of [facility] who has a h/o SWAPNIL on CPAP who presented to the ER with HTN urgency with FLORES. He was given BP meds and monitored in ICU and now his BP is improved and willing to try a new BP medicine although he is hesitant on taking any meds because they gave him side effects previously. I counseled him on the need to f/u in clinic as scheduled 08/21 and keep logbook of BP. Source: patient Exam Limitations: no limitations Date Seen 08/10/22 Time Seen by a Provider: 10:00 Attending Physician [place] PCP Admitting Physician: Maria Teresa Nation DO Attending Physician: Maria Teresa Nation DO Referring Physician Date of Admission Aug 09, 2022 at 23:50 Home Medications & Allergies Home Medications Reviewed patient Home Medication Reconciliation performed by pharmacy medication reconciliations vehicle glass technician and/or nursing. Patients Allergies have been reviewed. Allergies Allergies Coded Allergies No Known Drug Allergies (Ivijfuywua00/29/14) Past Gnmsetv-Lxprgo-Klcoom Hx Patient Social History Marrital Status: cohabiting Tobacco Use?: No Tobacco type used: Cigarettes Smoking Status: Former Smoker Use of E-Cig and/or Vaping dev: No Substance use?: No Alcohol Use?: No Pt feels they are or have been: No Immunizations Up To Date First/Initial COVID19 Vaccinat: 2020 Second COVID19 Vaccination Scar: 2020 Tetanus Booster (TDap): More Than 5 Years Date of Pneumonia Vaccine: Feb 07, 2013 Seasonal Allergies Seasonal Allergies: Yes Current Status Advance Directives: No Communicates: Verbally Primary Language: Tajik Preferred Spoken Language: Tajik Is interpretation needed?: No Sensory deficits: Vision impairment, Hearing impairment Implanted or Applied Medical D: CPAP Past Medical History Surgeries: Bladder Surgery, Cardiac Sleep Apnea, COPD Currently Using CPAP: Yes Angina, Hypertension Chronic Constipation Arthritis Bladder Did You Recieve Any Treatments: Yes What Type of Treatment Did You: Surgical Intervention Anxiety Blood Disorders: No ast Medical History 1. Obesity 2. Bladder Cancer sp TURBT 3. COPD 4. Sleep Apnea requiring CPAP with supplemental 5. Chronic sinus congestion with history of sinus surgery 6. Erectile dysfunction Past Surgical History 1. TURBT 2007 2. Sinus Surgery Family Medical History Asthma G8 BROTHER No Family History of: AIDS Abdominal aortic aneurysm Mitchell's disease Alcoholism Alzheimer's disease Aphasia Arthritis Cancer of mouth Cardiovascular disease Cataracts Colon cancer Completed stroke Congenital disease Congenital heart disease Coronary thrombosis Cystic fibrosis Deafness or hearing loss Dementia Diabetes mellitus Drug abuse Dysphasia Fibrocystic disease of breast Gastroenteritis Glaucoma Hypercholesterolemia Hypertension Infertility Kidney disease Myocardial infarction Neoplasm Not obtainable due to adoption Osteoporosis Parkinson's disease Prostate cancer Psychosocial problem Respiratory disorder Seizure disorder Severe allergy Thyroid disease Tuberculosis Visual disorder SOCIAL HISTORY: -SMOKED 2 PPD, QUIT 1995 -ETOH--OCCASIONAL USE -DRUGS--DENIES USE PAST SURGICAL HISTORY: -TURBT FOR BLADDER CANCER. -SINUS SURGERY -CARDIAC CATH--NORMAL WITH EF 65-70%. -NO INTERVENTION 05/08/[address] NIX Review of Systems Constitutional: see HPI, malaise, weakness Physical Exam Physical Exam Vital Signs Vital Signs - First Documented 08/09/22 08/09/22 08/10/22 20:01 23:48 02:29 Temp 37.4 Pulse 83 Resp 22 B/P (MAP) 188/115 (139) Pulse Ox 94 O2 Delivery Room Air O2 Flow Rate 3.00 FiO2 21 Capillary Refill : Less Than 3 Seconds Height, Weight, BMI Height: 5'11.00" Weight: 295lbs. 0oz. 133.650531mh; 41.89 BMI Method:Stated General Appearance: No Apparent Distress, WD/WN, Anxious, Obese (MORBIDLY OBESE), Other (TALKS VERY LOUDLY NON-STOP AT GREAT LENGTH, DIFFICULT TO KEEP ON SUBJECT. DOES NOT APPEAR TO BE IN ANY DISCOMFORT OR DISTRESS. 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 Short Stay Diagnosis Discharge Diagnosis-Short Stay Admission Diagnosis HTN Urgency SWAPNIL Final Discharge Diagnosis HTN Urgency SWAPNIL Conclusion Plan DC home Clinical Quality Measures AMI/AHF: ASA po Prior to arrival: Yes (325MG X2 TABLETS CLEANER FURNITURE) MARIA TERESA NATION DO Aug 10, 2022 08:53
[2022-08-10] MEDS ORDERED: THIAMINE INJECTION 100 MG, FOLIC ACID INJECTION 1 MG, VITAMIN MULTI INJECTION 10 ML, MA... IV ONE ×5 (09:00)
[2022-08-10] MEDS ORDERED: DOCUSATE SODIUM 100 MG (COLACE) CAP PO SCH (09:00)
[2022-08-10] MEDS ORDERED: SENNOSIDES 8.6 MG (SENOKOT) TAB PO SCH (09:00)
[2022-08-10] MEDS ORDERED: ENOXAPARIN 40 MG/0.4 ML (LOVENOX) SYR SC SCH (09:00)
[2022-08-10] MEDS ORDERED: LOSA1TAB20 PO (09:26)
[2022-08-10] MEDS ORDERED: CLN.1T PO (09:26)
[2022-08-10] MEDS ORDERED: LOSARTAN 50 MG (COZAAR) TAB PO NR (10:00)
[2022-08-10] MEDS ORDERED: HydroCHLOROthiazide CAP/TABLET 12.5 MG TAB PO NR (10:00)
== END 2022-08-10 10:38 | disposition home or self-care (01) ==
LOC: EDUNIT# 19:59 → ER 20:00 → INTOOBSV 23:50 → ICU 23:50
PROVIDERS: ADMIT Internal Medicine; ATTEND Internal Medicine
DX: I16.0 Hypertensive urgency (principal); G47.33 Obstructive sleep apnea (adult) (pediatric); E66.9 Obesity, unspecified; J44.9 Chronic obstructive pulmonary disease, unspecified; K85.90 Acute pancreatitis without necrosis or infection, unspecified; G47.30 Sleep apnea, unspecified; F41.9 Anxiety disorder, unspecified; Z99.81 Dependence on supplemental oxygen; Z87.891 Personal history of nicotine dependence; Z68.41 Body mass index [BMI] 40.0-44.9, adult
CPT/HCPCS: 36600; 71045; 71275; 74177; 80053 ×2; 82150 ×2; 82550; 82553; 82805; 83690 ×2; 83735 ×2; 83874; 83880; 84100; 84484 ×2; 85025 ×2; 85379; 85610; 85652; 85730; 86141; 87081; 93005; 93041; 96375; 96376; 99284; G0378; G0480; 36415; 80320

== ENCOUNTER → 2022-09-18 | Outpatient (CLI) | payer MEDICARE, OTHER ==
[~2022-09-18] MED LIST changes: +CLN.1T PO; +LOSA1TAB20 PO
== END ==
LOC: CARD 11:30
PROVIDERS: ATTEND Internal Medicine Cardiovascular Disease
DX: I10 Essential (primary) hypertension (principal); I25.10 Atherosclerotic heart disease of native coronary artery without angina pectoris
CPT/HCPCS: 93306

== ENCOUNTER → 2022-10-28 | Outpatient (CLI) | payer MEDICARE, OTHER ==
[~2022-10-28] VITALS: Ht 180 cm; Wt 136.0 kg
[~2022-10-28] MED LIST changes: +CATHETER FLUSH 10 ML SYR IVP PRN; +REGADENOSON 0.4 MG/5 ML SYR (LEXISCAN) IV ONE
[2022-10-28 13:04] VITALS: BP 190/108
--- NOTE | 2022-10-28 15:55 | Cardiology Stress Test Report ---
Stress Test Report Date of Procedure/Referring: Date of Procedure: Oct 28, 2022 [facility] Admitting Physician Admitting Physician: Attending Physician: Lucas Tello MD Indications: CP Baseline Heart Rate: 67 Baseline Blood Pressure: Blood Pressure Systolic: 190 Blood Pressure Diastolic: 108 Baseline Vitals Vital Signs Date Time Temp Pulse Resp B/P (MAP) Pulse Ox O2 Delivery O2 Flow Rate FiO2 10/28/22 13:04 67 190/108 (135) Baseline EKG: Baseline EKG: NSR Summary After explaining the procedure to the patient, he signed a consent and then brought to the stress nuclear laboratory. Patient received 0.4 mg Lexiscan for stress test, ECG, heart rate and blood pressure were monitored continuously. Resting and stress dose of radio tracer were injected, imaging was acquired and reviewed in short axis, horizontal long axis and vertical long axis views. TID: 1.07 SSS: 4 SDS: 1 EF: 65 Patient tolerated Lexiscan well Increased gastric uptake affecting the quality of the images, fixed defect at the basal to mid inferior wall with no significant reversibility, overall no ischemia or infarction noted on SPECT images Normal left ventricular size with normal contractility, ejection fraction 65% Copy Copies To 1: [facility] LUCAS TELLO MD Oct 28, 2022 15:55
== END ==
LOC: CARD 11:22
PROVIDERS: ATTEND Internal Medicine Cardiovascular Disease
DX: I10 Essential (primary) hypertension (principal); I25.10 Atherosclerotic heart disease of native coronary artery without angina pectoris
CPT/HCPCS: 78452; 93017; A9502

== ENCOUNTER 2023-03-03 05:51 | Outpatient (CLI) | payer MEDICARE, OTHER ==
[~2023-03-03] VITALS: Ht 181.6 cm; Wt 136.0 kg
[~2023-03-03 05:51] MED LIST changes: -CATHETER FLUSH 10 ML SYR IVP PRN; -REGADENOSON 0.4 MG/5 ML SYR (LEXISCAN) IV ONE
[2023-03-05] MEDS ORDERED: SILD50TA48 PO (13:24)
[2023-03-05] MEDS ORDERED: FLUT1DIS26 IH (13:24)
[2023-03-05] MEDS ORDERED: AMLO-250 PO (13:24)
== END 2023-03-05 13:31 | disposition home or self-care (01) ==
LOC: PREOP 05:51
PROVIDERS: ATTEND Surgery
DX: Z01.818 Encounter for other preprocedural examination (principal)

== ENCOUNTER 2023-03-16 10:22 | Day surgery (SDC) | payer MEDICARE, OTHER ==
[~2023-03-16] VITALS: Ht 181.6 cm; Wt 136.0 kg
[~2023-03-16 10:22] MED LIST changes: +SILD50TA48 PO
[2023-03-16] MEDS ORDERED: HURRICAINE EXT TUBE (BENZOCAINE) XX PRN (10:30)
[2023-03-16] MEDS ORDERED: LACTATED RINGERS 1,000 ML 1,000 ML IV STA (10:30)
[2023-03-16 10:45] VITALS: BP 150/85
--- NOTE | 2023-03-16 10:45 | Progress Note-Pre Operative ---
Pre-Operative Progress Note Date H&P Reviewed: Mar 16, 2023 Time H&P Reviewed: 10:44 History & Physical: H&P Reviewed, Patient Examed, No changes noted Pre-Operative Diagnosis: GERD and Screening Colonoscopy MARGUERITE ARMSTRONG DO Mar 16, 2023 10:45
[2023-03-16] MEDS ORDERED: LACTATED RINGERS 1,000 ML 1,000 ML IV ONE (10:54)
[2023-03-16] MEDS ORDERED: HURRICAINE EXT TUBE (BENZOCAINE) ONE (10:54)
[2023-03-16] MEDS ORDERED: KETAMINE 50 MG/5 ML SYRINGE ONE (11:23)
[2023-03-16 11:55] VITALS: BP 125/58
--- NOTE | 2023-03-16 11:57 | Progress Note-Post Operative ---
Post-Operative Progess Note Surgeon (s)/Pig Machine Crane Operator (s) Surgeon MARGUERITE ARMSTRONG DO Pig Machine Crane Operator: n/a Pre-Operative Diagnosis GERD and Screening Colonoscopy Post-Operative Diagnosis Hiatal Hernia, Colon Polyps Procedure & Operative Findings Date of Procedure 03/16/23 Procedure Performed/Findings EGD with biopsies, Colonoscopy with snare polypectomy x2 and hot biopsy x1 Anesthesia Type per RECEIVING MANAGER Estimated Blood Loss Estimated blood loss (mL): none Specimens/Packing Specimens Removed Antrum, GE, and Colon polyps (2x splenic flexure, 1x rectum) MARGUERITE ARMSTRONG DO Mar 16, 2023 11:57
--- NOTE | 2023-03-16 11:58 | Discharge Inst-Simple/Standard ---
Discharge Inst-Standard Patient Instructions/Follow Up Plan of Care/Instructions/FU: 2 weeks Dez Activity as Tolerated: Yes Discharge Diet: Regular Diet MARGUERITE ARMSTRONG DO Mar 16, 2023 11:58
[2023-03-16 12:00] VITALS: BP 158/72
[2023-03-16 12:05] VITALS: BP 147/68
[2023-03-16 12:15] VITALS: BP 147/68
[2023-03-16 12:20] VITALS: BP 147/68
--- NOTE | 2023-03-16 13:57 | Anesthesia-General Post-Op ---
MAC Patient Condition Mental Status/LOC: Same as Preop Cardiovascular: Satisfactory Nausea/Vomiting: Absent Respiratory: Satisfactory Pain: Controlled Complications: Absent Post Op Complications Complications None Follow Up Care/Instructions Patient Instructions None needed. Anesthesiology Discharge Order Discharge Order Patient is doing well, no complaints, stable vital signs, no apparent adverse anesthesia problems. No complications reported per nursing. JULIOCESAR MOISE CRNA Mar 16, 2023 13:57
--- NOTE | 2023-03-16 21:35 | OPERATIVE REPORT ---
DATE OF SERVICE: 03/16/2023 PREOPERATIVE DIAGNOSES: GERD and screening colonoscopy. POSTOPERATIVE DIAGNOSES: Hiatal hernia, colon polyps. PROCEDURES: EGD with biopsies, colonoscopy with snare polypectomy x2 and hot biopsy polypectomy x1. SURGEON: Marguerite Garces DO ANESTHESIA: Per HAND TWISTER. ESTIMATED BLOOD LOSS: None. COMPLICATIONS: None. INDICATIONS: The patient is a 68-year-old male with GERD symptoms and needing screening colonoscopy. He understands risks and benefits of procedure and wishes to proceed. Consent was signed in chart. DESCRIPTION OF PROCEDURE: The patient was taken to endoscopy suite, placed in left lateral recumbent position. Timeout was performed. Scope was inserted in the mouth, down the esophagus, stomach, and into the duodenum without difficulty. There were no polyps, masses or ulcerations in the duodenum. Scope was slowly retracted back into the stomach where it was further insufflated. No polyps, masses or ulcerations. Biopsy of the antrum was obtained. Scope was retroflexed noting a small hiatal hernia, no other pathology. Scope was returned to its normal position, slowly withdrawn until distal esophagus. Biopsy of GE junction was obtained. Scope was slowly retracted back until completely removed. Digital rectal exam was performed. No palpable polyps, masses or ulcerations. Scope was inserted into the rectum, advanced all the way to the cecum with minimal difficulty. Prep was adequate with irrigation and suction. Some particulate more in the cecal area, but still adequate visualization able to be seen. No polyps, masses or ulcerations within the cecum. The ileocecal valve was intubated and had normal appearance. Scope was continuously retracted back. No polyps, masses or ulcerations within the cecum, ascending, transverse colon. At the splenic flexure, there was a large polyp, which snare polypectomy was performed. This had to be brought out. Scope was reinserted into the rectum and advanced all the way back to the splenic flexure. Another small polyp was present, which hot biopsy polypectomy was performed. Scope was then slowly retracted back. No polyps, masses or ulcerations in the descending and sigmoid colon. In the rectum, a small polyp was present, which snare polypectomy was performed as well. Scope was retroflexed noting no other pathology. Scope was returned to its normal position, slowly withdrawn until completely removed. The patient tolerated the procedure well without complications, taken to recovery room in stable condition. RECOMMENDATIONS: The patient will follow up in the office in 2 weeks. Will need a repeat colonoscopy in 1 year due to the size of the polyps. Any issues before that, be seen at that time. Further recommendation pending biopsies. Job ID: [id number] DocumentID: [id number] Dictated Date: 03/16/2023 11:58:07 Lotus Notes Developer Date: 03/16/2023 21:33:00 Dictated By: MARGUERITE GARCES DO
== END 2023-03-16 12:30 | disposition home or self-care (01) ==
LOC: ENDO 10:22
PROVIDERS: ATTEND Surgery
DX: Z12.11 Encounter for screening for malignant neoplasm of colon (principal); K21.00 Gastro-esophageal reflux disease with esophagitis, without bleeding; D12.3 Benign neoplasm of transverse colon; D12.8 Benign neoplasm of rectum; K44.9 Diaphragmatic hernia without obstruction or gangrene; G47.33 Obstructive sleep apnea (adult) (pediatric); K31.89 Other diseases of stomach and duodenum; E66.01 Morbid (severe) obesity due to excess calories; Z87.891 Personal history of nicotine dependence; Z68.41 Body mass index [BMI] 40.0-44.9, adult
CPT/HCPCS: 88305